=== PATIENT | female | born 1970 | race Caucasian/White ===

== ENCOUNTER 2016-01-20 16:00 | Outpatient (RCR) | payer OTHER ==
--- OUTSIDE RECORDS SUMMARY | 2016-01-17 11:22 | XMS REPORT | Continuity of Care Document ---
Author Author [facility] Organization [facility] Address Unknown Phone Unavailable Care Team Providers Care Printing Estimator Name Role Phone MAXINE VELARDE MD PCP Insurance Providers Payer Name Policy Number Subscriber Name Relationship [id number] Madi Bettencourt D 01 Advance Directives Directive Response Recorded Date/Time Advance Directives No 01/04/16 11:10pm Health Care Power of Lathe Tender No 01/04/16 11:10pm Organ Donor Yes 01/04/16 11:10pm Resuscitation Status Full Code 01/04/16 11:10pm Chief Complaint and Reason for Visit Chief Complaint Abdominal/GI Problems Reason for Visit [id number] Abdominal pain Nausea Problems Active Problems Medical Problem Onset Date Status Abdominal pain Unknown Acute Left ureteral calculus Unknown Acute Left ureteral stone Unknown Acute Nausea Unknown Acute Pulmonary nodule Unknown Acute Urinary tract infection Unknown Acute Medications Current Home Medications Medication Dose Units Route Directions Days/Qty Instructions Start Date Sulfamethoxazole/Trimethoprim 1 Each 1 Each Oral Twice A Day Venlafaxine Hcl 150 Mg 150 Mg Oral Daily 01/03/16 Phenazopyridine Hcl 100 Mg 100 Mg Oral 01/03/16 Ciprofloxacin Hcl 500 Mg 500 Mg Oral Twice A Day 5 01/03/16 Tramadol Hcl 50 Mg 1-2 Mg Oral Every 4HRS as needed for Pain 14 Ondansetron 4 Mg 4 Mg Oral Every 4HRS as needed for Nausea/Vomiting 10 01/05/16 Hydrocodone/Acetaminophen 1 Each 1 Each Oral Every 4HRS as needed for Pain 20 01/05/16 Social History Social History Problem Response Recorded Date/Time Alcohol Use Rarely Uses 01/04/2016 11:10pm Recreational Drug Use No 01/04/2016 11:10pm Recent Foreign Travel No 01/04/2016 11:10pm Recent Infectious Disease Exposure No 01/04/2016 11:10pm Hospitalization with Isolation Denies 01/04/2016 11:10pm Sexually Transmitted Disease No 01/04/2016 11:10pm Smoking Status Never a Smoker 01/04/2016 11:10pm Recent Hopitalizations No 01/04/2016 11:10pm Sexually Transmitted Disease No 01/04/2016 11:10pm Hospitalization with Isolation Denies 01/04/2016 11:10pm Hx Sexually Transmitted Disorders No 01/01/2009 7:20am Query Response Start Date Stop Date Smoking Status Never a Smoker Hospital Discharge Instructions No hospital discharge instructions. Plan of Care Discharge Date 01/05/16 12:15am Disposition 01 HOME, SELF-CARE Condition at Discharge Improved Instructions/Education Provided Nephrolithiasis (ED) Acute Abdominal Pain (ED) Prescriptions See Medication Section Referrals MAXINE VELARDE MD - Primary Care Physician Additional Instructions/Education Drink plenty of clear liquids. Continue taking your antibiotic as prescribed. Use your pain medication and nausea medication as prescribed. Follow-up with your primary care provider for a urology referral. Strain your urine and capture any kidney stones produced to bring to your provider. A small lung nodule was incidentally found in the right lung base. You need to follow-up with your primary care provider to discuss monitoring this nodule. All discharge instructions reviewed with patient and/or family. Voiced understanding. Functional Status No functional status results. Allergies, Adverse Reactions, Alerts Allergen Type Severity Reaction Status Last Updated NKANo Known Allergies Allergy Unknown Active 01/03/16 Immunizations No immunization records. Vital Signs Acute Vital Signs Vital Response Date/Time Temperature (Fahrenheit) 98.0 degrees F (97.6 - 99.5) 01/05/2016 12:15am Temperature (Calculated Celsius) 36.62097 degrees C (36.4 - 37.5) 01/05/2016 12:15am Temperature Source Tympanic 01/05/2016 12:15am Pulse Rate (adult) 80 bpm (60 - 90) 01/05/2016 12:15am Respiratory Rate 17 bpm (12 - 24) 01/05/2016 12:15am O2 Sat by Pulse Oximetry 96 % (88 - 100) 01/05/2016 12:15am Blood Pressure 130/65 mm Hg 01/05/2016 12:15am Blood Pressure Mean 88 mm Hg 01/04/2016 11:10pm Pain Numeric Pain Scale 2 01/05/2016 12:15am Height (Feet) 5 feet 01/04/2016 11:10pm Height (Inches) 4 inches 01/04/2016 11:10pm Height (Calculated Centimeters) 162.211033 cm 01/04/2016 11:10pm Weight (Pounds) 180 pounds 01/04/2016 11:10pm Weight (Calculated Grams) 86434.627 gm 01/04/2016 11:10pm Weight (Calculated Kilograms) 81.893598 kilograms 01/04/2016 11:10pm Capillary Refill Capillary Refill Less Than 3 Seconds 01/04/2016 11:10pm Height 5 ft 4 in Weight 180 lb Body Mass Index 30.9 kg/m^2 Results Laboratory Results Test Name Result Units Flags Reference Collection Date/Time Result Date/ Time Comments White Blood Count 9.5 10^3/uL 4.3-11.0 01/03/2016 10:31pm 01/03/2016 10 :40pm Red Blood Count 4.41 10^6/uL 4.35-5.85 01/03/2016 10:31pm 01/03/2016 10 :40pm Hemoglobin 13.7 G/DL 11.5-16.0 01/03/2016 10:31pm 01/03/2016 10:40pm Hematocrit 39 % 35-52 01/03/2016 10:31pm 01/03/2016 10:40pm Mean Corpuscular Volume 88 FL 80-99 01/03/2016 10:31pm 01/03/2016 10: 40pm Mean Corpuscular Hemoglobin 31 PG 25-34 01/03/2016 10:31pm 01/03/2016 10:40pm Mean Corpuscular Hemoglobin Concent 35 G/DL 32-36 01/03/2016 10:31pm 10:40pm Red Cell Distribution Width 12.2 % 10.0-14.5 01/03/2016 10:31pm 2015 10:40pm Platelet Count 401 10^3/uL H 130-400 01/03/2016 10:31p 01/03/2016 10: 40pm Mean Platelet Volume 8.6 FL 7.4-10.4 01/03/2016 10:31pm 01/03/2016 10: 40pm Neutrophils (%) (Auto) 59 % 42-75 01/03/2016 10:31pm 01/03/2016 10: 40pm Lymphocytes (%) (Auto) 28 % 12-44 01/03/2016 10:31pm 01/03/2016 10: 40pm Monocytes (%) (Auto) 8 % 0-12 01/03/2016 10:31p 01/03/2016 10:40pm Eosinophils (%) (Auto) 5 % 0-10 01/03/2016 10:31p 01/03/2016 10:40pm Basophils (%) (Auto) 1 % 0-10 01/03/2016 10:31p 01/03/2016 10:40pm Neutrophils # (Auto) 5.6 X 10^3 1.8-7.8 01/03/2016 10:31pm 01/03/2016 10:40pm Lymphocytes # (Auto) 2.6 X 10^3 1.0-4.0 01/03/2016 10:31p 01/03/2016 10:40pm Monocytes # (Auto) 0.7 X 10^3 0.0-1.0 01/03/2016 10:31p 01/03/2016 10: 40pm Eosinophils # (Auto) 0.4 10^3/uL H 0.0-0.3 01/03/2016 10:31pm 01/03/2016 10:40pm Basophils # (Auto) 0.1 10^3/uL 0.0-0.1 01/03/2016 10:31pm 01/03/2016 10 :40pm Urine Color YELLOW 01/03/2016 10:26pm 01/03/2016 10:52pm SPECIMEN ONLY 2 MLS. Urine Clarity CLEAR 01/03/2016 10:26pm 01/03/2016 10:52pm Urine pH 6 5-9 01/03/2016 10:26pm 01/03/2016 10:52pm Urine Specific [place] 1.025 * 1.016-1.022 01/03/2016 10:26pm 2015 10:52pm Urine Protein 2+ * NEGATIVE 01/03/2016 10:26pm 01/03/2016 10:52pm Urine Glucose (UA) NEGATIVE NEGATIVE 01/03/2016 10:26pm 01/03/2016 10 :52pm Urine RBC (Auto) 5+ * NEGATIVE 01/03/2016 10:26pm 01/03/2016 10:52pm Urine Ketones 1+ * NEGATIVE 01/03/2016 10:26pm 01/03/2016 10:52pm Urine Nitrite POSITIVE * NEGATIVE 01/03/2016 10:26pm 01/03/2016 10: 52pm Urine Bilirubin 1+ * NEGATIVE 01/03/2016 10:26pm 01/03/2016 10:52pm ICTOTEST NEGATIVE Urine Urobilinogen 1 MG/DL NORMAL 01/03/2016 10:26pm 01/03/2016 10: 52pm Urine Leukocyte Esterase 3+ * NEGATIVE 01/03/2016 10:26pm 01/03/2016 10 :52pm Urine RBC 50-100 /HPF * 01/03/2016 10:26pm 01/03/2016 10:52pm Urine WBC 10-25 /HPF * 01/03/2016 10:26pm 01/03/2016 10:52pm Urine Bacteria LARGE /HPF * 01/03/2016 10:26pm 01/03/2016 10:52pm Urine Squamous Epithelial Cells 10-25 /HPF * 01/03/2016 10:26pm 2015 10:52pm Urine Crystals NONE /LPF 01/03/2016 10:26pm 01/03/2016 10:52pm Urine Casts NONE /LPF 01/03/2016 10:26pm 01/03/2016 10:52pm Urine Mucus NEGATIVE /LPF 01/03/2016 10:26pm 01/03/2016 10:52pm Urine Culture Indicated YES 01/03/2016 10:26pm 01/03/2016 10:52pm Sodium Level 138 MMOL/L 135-145 01/03/2016 10:31pm 01/03/2016 11:04pm Potassium Level 3.6 MMOL/L 3.6-5.0 01/03/2016 10:31pm 01/03/2016 11: 04pm Chloride Level 105 MMOL/L 98-107 01/03/2016 10:31pm 01/03/2016 11:04pm Carbon Dioxide Level 22 MMOL/L 21-32 01/03/2016 10:31pm 01/03/2016 11: 04pm Anion Gap 11 MMOL/L 5-14 01/03/2016 10:31pm 01/03/2016 11:04pm Blood Urea Nitrogen 11 MG/DL 7-18 01/03/2016 10:31pm 01/03/2016 11: 04pm Creatinine 0.91 MG/DL 0.60-1.30 01/03/2016 10:31pm 01/03/2016 11:04pm BUN/Creatinine Ratio 12 01/03/2016 10:31pm 01/03/2016 11:04pm Estimat Glomerular Filtration Rate > 60 01/03/2016 10:31pm 2015 11:04pm GFR INTERPRETIVE DATA UNITS FOR ESTIMATED GFR (eGFR): mL/min/1.73 M2 REFERENCE RANGE FOR ESTIMATED GFR (eGFR) eGFR NORMAL eGFR >60 MODERATELY DECREASED eGFR 30-59 SEVERLY DECREASED eGFR 15-29 KIDNEY FAILURE <15 (OR DIALYSIS) Glucose Level 111 MG/DL H 70-105 01/03/2016 10:31pm 01/03/2016 11:04pm Calcium Level 9.1 MG/DL 8.5-10.1 01/03/2016 10:31pm 01/03/2016 11:04pm Total Bilirubin 0.5 MG/DL 0.1-1.0 01/03/2016 10:31pm 01/03/2016 11: 04pm Alkaline Phosphatase 57 U/L 40-136 01/03/2016 10:31pm 01/03/2016 11: 04pm Aspartate Amino Transf (AST/SGOT) 14 U/L 5-34 01/03/2016 10:31pm 2015 11:04pm Alanine Aminotransferase (ALT/SGPT) 9 U/L 0-55 01/03/2016 10:31pm 01/02 11:04pm Total Protein 7.2 G/DL 6.4-8.2 01/03/2016 10:31pm 01/03/2016 11:04pm Albumin 4.4 G/DL 3.2-4.5 01/03/2016 10:31pm 01/03/2016 11:04pm Microbiology Results Procedure Source Result Collection Date/Time Result Date/Time Urine Culture Urine, Clean Catch NO GROWTH 01/03/2016 10:26pm 01/04/2016 5: 38pm Procedures No known history of procedures. Encounters Encounter Location Arrival/Admit Date Discharge/Depart Date Attending Provider Departed Emergency Room [facility] 01/04/16 11:07pm 12:15am PEGGY CASTRO MD Departed Emergency Room [facility] 01/03/16 10:03pm 11:30pm DEEPIKA TAYLOR MD Recent Diagnosis
[~2016-01-20 16:00] MED LIST: CIPR-225 PO; HYDR-3812 PO; NITR-65 PO; ONDA4TAB8 PO; PHEN-639 PO; SULF1TAB35 PO; TAMS0.4C98 PO; TRAM50TA2 PO; VENL150C PO
[2016-01-24 14:45] LABS: STONE RISK AMMONIUM 37 mEq/24hr (14-62); STONE RISK BRUSHITE 2.86 (< 2.00); STONE RISK CALCIUM 165 mg/day (< 250); STONE RISK CITRATE 1305 mg/day (> 320); STONE RISK CREATININE 1676 mg/day (600-1800); STONE RISK MAGNESIUM 49 mg/day (> 60); STONE RISK OXALATE 21 mg/day (< 45); STONE RISK PATIENT CONDITION Low urine volume; STONE RISK PH 6.3 (5.5-7.0); STONE RISK PHOSPHOROUS 922 mg/day (< 1100); STONE RISK POTASSIUM 36 mEq/24hr (19-135); STONE RISK SODIUM 90 mEq/24hr (< 200); STONE RISK SODIUM URATES 6.01 (< 2.00); STONE RISK STRUVITE 2.72 (< 75.00); STONE RISK SULFITE 4 mmol/day (< 30); STONE RISK TOTAL VOLUME 0.79 L/day (> 2.00); STONE RISK URIC ACID 572 mg/day (< 700); STONE RISK URIC ACID SAT 1.62 (< 2.00)
== END 2016-04-16 | disposition home or self-care (01) ==
LOC: LAB 16:00
PROVIDERS: ATTEND Urology
DX: N20.9 Urinary calculus, unspecified (principal)
CPT/HCPCS: 36415; 82140; 82340; 82507; 82570; 83735; 83945; 83986; 84105; 84133; 84300; 84392; 84560

== ENCOUNTER → 2017-03-09 | Outpatient (CLI) | payer OTHER ==
--- NOTE | 2017-03-09 18:22 | Diagnostic Imaging Report ---
Bilateral screening mammogram 2D views with tomosynthesis The current study was also evaluated with a Computer Aided Detection (CAD) system. Indication: Screening. No current complaints stated on the questionnaire. COMPARISON: 05/29/15. FINDINGS: The breasts are composed of scattered fibroglandular densities. There are occasional benign appearing calcifications. Allowing for technique and positional differences, no suspicious change is seen. IMPRESSION: No significant change. ACR BI-RADS Category 2: Benign findings. Result letter will be mailed to the patient. Note: At least 10% of breast cancer is not imaged by mammography. Dictated by: Dictated on workstation # [id number]
== END ==
LOC: RAD 08:43
PROVIDERS: ATTEND Internal Medicine
DX: Z12.31 Encounter for screening mammogram for malignant neoplasm of breast (principal)
CPT/HCPCS: 77067

== ENCOUNTER → 2017-09-14 | Outpatient (CLI) | payer OTHER ==
[~2017-09-14] MED LIST changes: +ACHD5005 PO; -HYDR-3812 PO
--- NOTE | 2017-09-14 17:35 | Diagnostic Imaging Report ---
INDICATION: History of previous left renal stone. KUB obtained at 4:44 p.m. FINDINGS: The abdominal bowel gas pattern is unremarkable. There are no radiopaque calculi visualized over the pelvis or over the renal shadows. IMPRESSION: Negative abdominal film. Dictated by: Dictated on workstation # [id number]
== END ==
LOC: RAD 16:14
PROVIDERS: ATTEND Urology
DX: Z87.442 Personal history of urinary calculi (principal)
CPT/HCPCS: 74018

== ENCOUNTER → 2018-02-02 | Outpatient (CLI) | payer OTHER ==
--- NOTE | 2018-02-02 18:28 | Diagnostic Imaging Report ---
INDICATION: Back pain. EXAMINATION: Thoracic spine. FINDINGS: AP and lateral views of the thoracic spine show normal vertebral body height and alignment. Disc spaces are normal. IMPRESSION: Negative thoracic spine. Dictated by: Dictated on workstation # [id number]
== END ==
LOC: RAD 15:15
PROVIDERS: ATTEND Chiropractor
DX: M54.6 Pain in thoracic spine (principal)
CPT/HCPCS: 72072

== ENCOUNTER → 2018-05-02 | Outpatient (CLI) | payer OTHER ==
--- NOTE | 2018-05-02 09:24 | Diagnostic Imaging Report ---
INDICATION: Routine screening. COMPARISON: 03/09/2017 and 05/29/2015. TECHNIQUE: 2D and 3D bilateral screening mammography was performed with CAD. FINDINGS: Scattered fibroglandular densities are identified bilaterally. The parenchymal pattern is stable. No mass or malignant appearing microcalcifications are seen. The axillae are unremarkable. IMPRESSION: No mammographic features suspicious for malignancy are identified. ACR BI-RADS Category 1: Negative. Result letter will be mailed to the patient. Note: At least 10% of breast cancer is not imaged by mammography. Dictated by: Dictated on workstation # [id number]
== END ==
LOC: RAD 08:00
PROVIDERS: ATTEND Internal Medicine
DX: Z12.31 Encounter for screening mammogram for malignant neoplasm of breast (principal)
CPT/HCPCS: 77067

== ENCOUNTER 2018-07-26 05:47 | Outpatient (CLI) | payer OTHER ==
[~2018-07-26] VITALS: Ht 162.6 cm; Wt 86.2 kg
[2018-07-26] MEDS ORDERED: CETI10TA4 PO (14:54)
[2018-07-26] MEDS ORDERED: [UNRECOGNIZED DRUG - CODE] PO (14:54)
== END 2018-07-26 14:55 | disposition home or self-care (01) ==
LOC: PREOP 05:47
PROVIDERS: ATTEND Internal Medicine
DX: Z01.818 Encounter for other preprocedural examination (principal)

== ENCOUNTER 2018-07-29 08:17 | Day surgery (SDC) | payer OTHER ==
--- NOTE | 2018-07-26 17:21 | HISTORY AND PHYSICAL ---
DATE OF SERVICE: 07/29/2018 EGD HISTORY AND PHYSICAL HISTORY OF PRESENT ILLNESS: The patient is a 48-year-old white female seen in the office on 07/25/2018 reporting at least a 1-month history of increased epigastric burning discomfort radiating up into her chest. With this, she has noted some dysphagia to solids. Ultimately, food will go down. She has not had to regurgitate anything, but it is also associated with pain. Over the past 4 months, she is put on 7.6 pounds and compared to 5 years ago, she is up 33 pounds. She has noticed no bright red blood per rectum or melena. Reports energy level has been stable and she denies abdominal pain. She had a past history of pancreatitis during her 10 years ago and reports that this discomfort is different than her pancreatitis related symptoms, which was predominantly upper abdominal pain. She has had no associated nausea. PHYSICAL EXAMINATION: GENERAL: Reveals a white female, who did not appear to be in acute distress. VITAL SIGNS: Blood pressure 150/90. HEENT: Unremarkable. Sclerae nonicteric. CHEST: Clear to auscultation. CARDIOVASCULAR: Reveals regular rate and rhythm without murmur, S3 or S4. ABDOMEN: Soft, supple without mass, organomegaly or pain. There is some mild discomfort in the epigastric area to palpation and a sensation of fullness per the patient's report. Bowel sounds are positive. No bruits are noted. EXTREMITIES: Reveal no cyanosis, clubbing or edema. ASSESSMENT AND PLAN: Reflux sounding symptoms with dysphagia. The patient will be set up for EGD evaluation for diagnostic purposes on the 07/29/2018. She denies nighttime symptoms, but has been taking 150 mg of ranitidine at bedtime and some p.r.n. antacids during the day. It is advised that she increase her ranitidine to b.i.d. for now with further recommendations pending EGD evaluation. She is to avoid aspirin and nonsteroidal medications in the interim, which she does not normally take. We will discuss weight association with reflux symptoms after the procedure. Job ID: [id number] DocumentID: [id number] Dictated Date: 07/25/2018 16:27:21 Station Detective Date: 07/25/2018 17:31:22 Dictated By: MAXINE VELARDE MD
[~2018-07-29] VITALS: Ht 162.6 cm; Wt 86.2 kg
[~2018-07-29 08:17] MED LIST changes: +CETI10TA4 PO; +[UNRECOGNIZED DRUG - CODE] PO
--- OUTSIDE RECORDS SUMMARY | 2018-07-29 08:21 | XMS REPORT | Continuity of Care Document ---
Author Organization Unknown Address Unknown Allergies Active Description Code Type Severity Reaction Onset Reported/Identified Relationship to Patient Clinical Status Yes NKANo Known Allergies NKA Miscellaneous Allergy Unknown N/A 01/03/2016 Medications There is no data. Problems Date Dx Coded Attending Type Code Diagnosis Diagnosed By 05/08/2013 GARY SAMANIEGO DO V70.3 OTHER GENERAL MEDICAL EXAMINATION FOR ADMINISTRATIVE PURPOSES 05/10/2014 Ot 172.9 05/10/2014 Ot V72.83 05/10/2014 Ot V74.8 05/10/2014 Ot 611.72 05/10/2014 Ot V76.12 05/10/2014 Ot 793.80 05/10/2014 Ot V76.12 05/10/2014 Ot 172.9 05/10/2014 Ot V72.83 05/10/2014 Ot V74.8 05/10/2014 Ot 611.72 05/10/2014 Ot V76.12 05/10/2014 Ot 793.80 05/10/2014 Ot V76.12 05/29/2015 Ot 611.72 05/29/2015 Ot V76.12 05/29/2015 Ot 793.80 05/29/2015 Ot V76.12 05/30/2015 PRACHI CISNEROS, MAXINE Barahona Ot Z12.31 01/03/2016 Ot 611.72 LUMP OR MASS IN BREAST 01/03/2016 Ot V76.12 OTH SCREEN MAMMO-MALIGN NEOPLASM OF JEZ 01/03/2016 Ot 793.80 UNSPEC ABNORMAL MAMMOGRAM 01/03/2016 Ot V76.12 OTH SCREEN MAMMO-MALIGN NEOPLASM OF JEZ 01/03/2016 MAXINE VELARDE MD Ot Z12.31 ENCNTR SCREEN MAMMOGRAM FOR MALIGNANT NE 01/03/2016 BRANDON CISNEROS, DEEPIKA Davis Ot N20.2 CALCULUS OF KIDNEY WITH CALCULUS OF URET 01/03/2016 BRANDON CISNEROS, DEEPIKA Davis Ot N83.201 UNSPECIFIED OVARIAN CYST, RIGHT SIDE 01/03/2016 BRANDON MD, DEEPIKA A Ot R10.32 LEFT LOWER QUADRANT PAIN 01/03/2016 BRANDON CISNEROS, DEEPIKA A Ot R11.0 NAUSEA 01/03/2016 BRANDON CISNEROS, DEEPIKA A Ot R91.1 SOLITARY PULMONARY NODULE 01/05/2016 GLORIA ICSNEROS, PEGGY T Ot N20.2 CALCULUS OF KIDNEY WITH CALCULUS OF URET 01/05/2016 GLORIA CISNEROS, PEGGY T Ot N83.201 UNSPECIFIED OVARIAN CYST, RIGHT SIDE 01/05/2016 PEGGY CASTRO MD T Ot R10.32 LEFT LOWER QUADRANT PAIN 01/05/2016 GLORIA CISNEROS, PEGGY T Ot R91.1 SOLITARY PULMONARY NODULE 01/05/2016 GLORIA CISNEROS, PEGGY T Ot Z85.820 PERSONAL HISTORY OF MALIGNANT MELANOMA O 01/06/2016 DEEPIKA TAYLOR MD A Ot N20.2 CALCULUS OF KIDNEY WITH CALCULUS OF URET 01/06/2016 DEEPIKA TAYLOR MD A Ot N83.201 UNSPECIFIED OVARIAN CYST, RIGHT SIDE 01/06/2016 DEEPIKA TAYLOR MD A Ot R10.32 LEFT LOWER QUADRANT PAIN 01/06/2016 DEEPIKA TAYLOR MD A Ot R11.0 NAUSEA 01/06/2016 DEEPIKA TAYLOR MD A Ot R91.1 SOLITARY PULMONARY NODULE 01/07/2016 GLORIA CISNEROS, PEGGY T Ot N20.2 CALCULUS OF KIDNEY WITH CALCULUS OF URET 01/07/2016 PEGGY CASTRO MD T Ot N83.201 UNSPECIFIED OVARIAN CYST, RIGHT SIDE 01/07/2016 PEGGY CASTRO MD T Ot R10.32 LEFT LOWER QUADRANT PAIN 01/07/2016 PEGGY CASTRO MD T Ot R91.1 SOLITARY PULMONARY NODULE 01/07/2016 GLORIA CISNEROS, PEGGY T Ot Z85.820 PERSONAL HISTORY OF MALIGNANT MELANOMA O 01/10/2016 DEEPIKA TAYLOR MD A Ot N20.2 CALCULUS OF KIDNEY WITH CALCULUS OF URET 01/10/2016 DEEPIKA TAYLOR MD A Ot N83.201 UNSPECIFIED OVARIAN CYST, RIGHT SIDE 01/10/2016 DEEPIKA TAYLOR MD A Ot R10.32 LEFT LOWER QUADRANT PAIN 01/10/2016 DEEPIKA TAYLOR MD A Ot R11.0 NAUSEA 01/10/2016 BRANDON CISNEROS, DEEPIKA Davis Ot R91.1 SOLITARY PULMONARY NODULE 01/10/2016 Ot 611.72 LUMP OR MASS IN BREAST 01/10/2016 Ot V76.12 OTH SCREEN MAMMO-MALIGN NEOPLASM OF JEZ 01/10/2016 Ot 793.80 UNSPEC ABNORMAL MAMMOGRAM 01/10/2016 Ot V76.12 OTH SCREEN MAMMO-MALIGN NEOPLASM OF JEZ 01/10/2016 PRACHI CISNEROS, MAXINE Barahona Ot Z12.31 ENCNTR SCREEN MAMMOGRAM FOR MALIGNANT NE 01/10/2016 YONG BACH MD Ot N20.1 CALCULUS OF URETER 01/10/2016 MIKALA CISNEROS, YONG Davis Ot N20.1 CALCULUS OF URETER 01/13/2016 MIKALA CISNEROS, YONG Davis Ot N20.1 CALCULUS OF URETER 01/17/2016 MIKALA CISNEROS, YONG Davis Ot N20.1 CALCULUS OF URETER 01/28/2016 MIKALA CISNEROS, YONG Davis Ot N20.1 CALCULUS OF URETER 03/05/2016 MIAKLA CISNEROS, YONG Davis Ot N20.9 URINARY CALCULUS, UNSPECIFIED 04/16/2016 MIKALA CISNEROS, YONG Davis Ot N20.9 URINARY CALCULUS, UNSPECIFIED 03/09/2017 Ot V76.12 OTH SCREEN MAMMO-MALIGN NEOPLASM OF JEZ 03/09/2017 MAXINE VELARDE MD Ot Z12.31 ENCNTR SCREEN MAMMOGRAM FOR MALIGNANT NE 03/09/2017 YONG BACH MD Ot N20.1 CALCULUS OF URETER 03/09/2017 MIKALA CISNEROS, YONG Davis Ot N20.9 URINARY CALCULUS, UNSPECIFIED 03/10/2017 MAXINE VELARDE MD Ot Z12.31 ENCNTR SCREEN MAMMOGRAM FOR MALIGNANT NE 03/23/2017 MAXINE VELARDE MD Ot Z12.31 ENCNTR SCREEN MAMMOGRAM FOR MALIGNANT NE 09/16/2017 YONG BACH MD Ot Z87.442 PERSONAL HISTORY OF URINARY CALCULI 09/16/2017 YONG BACH MD Ot Z87.442 PERSONAL HISTORY OF URINARY CALCULI 11/17/2017 MAXINE VELARDE MD Ot Z12.31 ENCNTR SCREEN MAMMOGRAM FOR MALIGNANT NE 11/17/2017 YONG BACH MD Ot N20.1 CALCULUS OF URETER 11/17/2017 YONG BACH MD Ot N20.9 URINARY CALCULUS, UNSPECIFIED 05/02/2018 MAXINE VELARDE MD Ot Z12.31 ENCNTR SCREEN MAMMOGRAM FOR MALIGNANT NE 05/02/2018 YONG BACH MD Ot Z87.442 PERSONAL HISTORY OF URINARY CALCULI 05/02/2018 JOHN LEE, MARILEE Ot M54.6 PAIN IN THORACIC SPINE 05/02/2018 MAXINE VELARDE MD Ot Z12.31 ENCNTR SCREEN MAMMOGRAM FOR MALIGNANT NE 07/26/2018 MAXINE VELARDE MD Ot Z01.818 ENCOUNTER FOR OTHER PREPROCEDURAL EXAMIN Procedures There is no data. Results Test Result Range Complete urinalysis with reflex to culture - 01/03/16 22:26 Urine color determination YELLOW NRG Urine clarity determination CLEAR NRG Urine pH measurement by test strip 6 5-9 Specific gravity of urine by test strip 1.025 1.016- 1.022 Urine protein assay by test strip, semi-quantitative 2+ NEGATIVE Urine glucose detection by automated test strip NEGATIVE NEGATIVE Erythrocytes detection in urine sediment by light microscopy 5+ NEGATIVE Urine ketones detection by automated test strip 1+ NEGATIVE Urine nitrite detection by test strip POSITIVE NEGATIVE Urine total bilirubin detection by test strip 1+ NEGATIVE Urine urobilinogen measurement by automated test strip (mass/volume) 1 mg/dL NORMAL Urine leukocyte esterase detection by dipstick 3+ NEGATIVE Automated urine sediment erythrocyte count by microscopy (number/high power field) [HPF] NRG Automated urine sediment leukocyte count by microscopy (number/high power field ) [HPF] NRG Bacteria detection in urine sediment by light microscopy LARGE NRG Squamous epithelial cells detection in urine sediment by light microscopy 10-25 NRG Crystals detection in urine sediment by light microscopy NONE NRG Casts detection in urine sediment by light microscopy NONE NRG Mucus detection in urine sediment by light microscopy NEGATIVE NRG Complete urinalysis with reflex to culture YES NRG Bacterial urine culture - 01/03/16 22:26 URINE CULTURE RESULTS <10,000/ML NRG Complete blood count (CBC) with automated white blood cell (WBC) differential - 01/03/16 22:31 Blood leukocytes automated count (number/volume) 9.5 10*3/uL 4.3-11.0 Blood erythrocytes automated count (number/volume) 4.41 10*6/uL 4.35-5.85 Venous blood hemoglobin measurement (mass/volume) 13.7 g/dL 11.5-16.0 Blood hematocrit (volume fraction) 39 % 35-52 Automated erythrocyte mean corpuscular volume 88 [foz_us] 80-99 Automated erythrocyte mean corpuscular hemoglobin (mass per erythrocyte) 31 pg 25-34 Automated erythrocyte mean corpuscular hemoglobin concentration measurement ( mass/volume) 35 g/dL 32-36 Automated erythrocyte distribution width ratio 12.2 % 10.0-14.5 Automated blood platelet count (count/volume) 401 10*3/uL 130-400 Automated blood platelet mean volume measurement 8.6 [foz_us] 7.4-10.4 Automated blood neutrophils/100 leukocytes 59 % 42-75 Automated blood lymphocytes/100 leukocytes 28 % 12-44 Blood monocytes/100 leukocytes 8 % 0-12 Automated blood eosinophils/100 leukocytes 5 % 0-10 Automated blood basophils/100 leukocytes 1 % 0-10 Blood neutrophils automated count (number/volume) 5.6 10*3 1.8-7.8 Blood lymphocytes automated count (number/volume) 2.6 10*3 1.0-4.0 Blood monocytes automated count (number/volume) 0.7 10*3 0.0-1.0 Automated eosinophil count 0.4 10*3/uL 0.0-0.3 Automated blood basophil count (count/volume) 0.1 10*3/uL 0.0-0.1 Comprehensive metabolic panel - 01/03/16 22:31 Serum or plasma sodium measurement (moles/volume) 138 mmol/L 135-145 Serum or plasma potassium measurement (moles/volume) 3.6 mmol/L 3.6-5.0 Serum or plasma chloride measurement (moles/volume) 105 mmol/L 98-107 Carbon dioxide 22 mmol/L 21-32 Serum or plasma anion gap determination (moles/volume) 11 mmol/L 5-14 Serum or plasma urea nitrogen measurement (mass/volume) 11 mg/dL 7-18 Serum or plasma creatinine measurement (mass/volume) 0.91 mg/dL 0.60-1.30 Serum or plasma urea nitrogen/creatinine mass ratio 12 NRG Serum or plasma creatinine measurement with calculation of estimated glomerular filtration rate > NRG Serum or plasma glucose measurement (mass/volume) 111 mg/dL 70-105 Serum or plasma calcium measurement (mass/volume) 9.1 mg/dL 8.5-10.1 Serum or plasma total bilirubin measurement (mass/volume) 0.5 mg/dL 0.1-1.0 Serum or plasma alkaline phosphatase measurement (enzymatic activity/volume) 57 U/L 40-136 Serum or plasma aspartate aminotransferase measurement (enzymatic activity/ volume) 14 U/L 5-34 Serum or plasma alanine aminotransferase measurement (enzymatic activity/volume ) 9 U/L 0-55 Serum or plasma protein measurement (mass/volume) 7.2 g/dL 6.4-8.2 Serum or plasma albumin measurement (mass/volume) 4.4 g/dL 3.2-4.5 Urine beta human chorionic gonadotropin (hCG) measurement - 01/10/16 06:40 Urine beta human chorionic gonadotropin (hCG) measurement NEGATIVE NEGATIVE Methicillin resistant Staphylococcus aureus (MRSA) screening culture - 06:40 Methicillin resistant Staphylococcus aureus (MRSA) screening culture NEG NRG CD3+CD4+ (T4 helper) cells/100 cells in blood - 01/20/16 09:00 Timed urine calcium measurement (mass/volume) 165 % < 250 Urine oxalate detection 21 < 45 Urine uric acid measurement (mass/volume) 572 % < 700 Urine citrate measurement (mass/volume) 1305 % > 320 Urine pH measurement 6.3 5.5-7.0 24 hour urine specimen volume measurement 0.79 % > 2.00 Sodium urate/total calculus mass ratio by infrared spectroscopy 90 % < 200 Sulfites [presence] in urine by test strip 4 < 30 Urine phosphate measurement (mass/volume) 922 % < 1100 Urine magnesium measurement (mass/volume) 49 % > 60 Urine calcium oxalate measurement 1.60 < 2.00 Urine calcium phosphate crystals detection by computer assisted method 2.86 < 2.00 24 hour urine sodium urate (saturation fraction) 6.01 < 2.00 Triple phosphate crystals detection in urine sediment by light microscopy 2.72 < 75.00 24 hour urine uric acid (saturation fraction) 1.62 < 2.00 Urine ammonium measurement 37 % 14-62 Urine potassium measurement 36 % 19-135 24 hour urine creatinine measurement (mass/time) 1676 % 600-1800 Clinical rn camp review of results See Below NRG Encounters ACCT No. Visit Date/Time Discharge Status Pt. Type Provider Facility Loc./Unit Complaint [id number] 05/08/2013 12:14:00 05/08/2013 23:59:59 CLS Outpatient GARY SAMANIEGO DO [id number] 07/26/2018 05:47:00 07/26/2018 14:55:00 DIS Outpatient MAXINE VELARDE MD [facility] PREOP EGD [id number] 05/02/2018 08:00:00 05/02/2018 23:59:59 CLS Outpatient MAXINE VELARDE MD [facility] RAD SCREENING [id number] 02/02/2018 15:15:00 02/02/2018 23:59:59 CLS Outpatient MARILEE LOPEZ DC [facility] RAD PAIN IN THORACIC SPINE [id number] 09/14/2017 16:14:00 09/14/2017 23:59:59 CLS Outpatient YONG BACH MD [facility] RAD H/O STONES [id number] 03/09/2017 08:43:00 03/09/2017 23:59:59 CLS Outpatient MAXINE VELARDE MD [facility] RAD SCREENING [id number] 04/17/2016 00:09:00 04/17/2016 23:59:59 CLS Preadmit YONG BACH MD [facility] LAB STONES [id number] 01/20/2016 16:00:00 04/16/2016 00:01:00 DIS Outpatient YONG BACH MD [facility] LAB STONES [id number] 01/10/2016 06:15:00 01/10/2016 09:40:00 DIS Outpatient YONG BACH MD [facility] SDC LEFT STONE [id number] 01/09/2016 13:36:00 01/09/2016 23:59:59 CLS Outpatient YONG BACH MD [facility] RAD LT URETERAL STONE [id number] 01/04/2016 23:07:00 01/05/2016 00:15:00 DIS Emergency PEGGY CASTRO MD [facility] ER AB PAIN [id number] 01/03/2016 22:03:00 01/03/2016 23:30:00 DIS Emergency BRANDON CISNEROS, DEEPIKA Davis [facility] ER PAIN IN L SIDE/TINGLING HANDS [id number] 05/29/2015 14:45:00 05/29/2015 23:59:59 CLS Outpatient MAXINE VELARDE MD [facility] RAD SCREENING [id number] 10/27/2012 10:08:00 10/27/2012 23:59:59 CLS Outpatient [id number] 07/29/2018 09:45:00 PEN Preadmit MAXINE VELARDE MD [facility] ENDO DYSPHAGIA [id number] 05/10/2014 11:52:00 Document Registration [id number] 05/10/2014 11:52:00 Document Registration [id number] 03/04/2012 15:07:00 Document Registration [id number] 08/19/2010 14:20:00 Document Registration [id number] 08/07/2010 15:22:00 Document Registration [id number] 12/28/2008 08:58:00 Document Registration
[2018-07-29] MEDS ORDERED: D5 LR IV SOLUTION 1,000 ML IV STA (08:34)
[2018-07-29] MEDS ORDERED: D5 LR IV SOLUTION 1,000 ML IV ONE (08:35)
[2018-07-29] MEDS ORDERED: MIDAZOLAM 2 MG/2 ML (VERSED) VIAL IVP ONE (08:45)
[2018-07-29] MEDS ORDERED: HURRICAINE EXT TUBE (BENZOCAINE) XX PRN (08:45)
[2018-07-29] MEDS ORDERED: fentaNYL INJECTION 100 MCG/2 ML AMP IVP ONE (08:45)
[2018-07-29 09:13] VITALS: BP 122/85
[2018-07-29] MEDS ORDERED: fentaNYL INJECTION 100 MCG/2 ML AMP ONE (09:35)
[2018-07-29] MEDS ORDERED: LIDOCAINE JELLY 2% 6 ML SYRINGE ONE (09:35)
[2018-07-29] MEDS ORDERED: MIDAZOLAM 2 MG/2 ML (VERSED) VIAL ONE ×3 (09:35→09:36)
[2018-07-29] MEDS ORDERED: HURRICAINE EXT TUBE (BENZOCAINE) ONE (09:36)
[2018-07-29 10:35] VITALS: BP 136/78
--- NOTE | 2018-07-29 10:35 | Pre-Op Note & Conscious Sedat ---
Pre-Operative Progress Note H&P Reviewed The H&P was reviewed, patient examined and no changes noted. Date H&P Reviewed: July 29, 2018 Time H&P Reviewed: 09:15 Conscious Sedation Pre-Proced ASA Score 2 For ASA 3 and 4: Consider anesthesia and medical clearance. Also, for patients with a history of failed moderate sedation consider anesthesia. Airway Lungs Heart ASA score ASA 1: a normal healthy patient ASA 2: a patient with a mild systemic disease (mid diabetes, controlled hypertension, obesity ASA 3: a patient with a severe systemic disease that limits activity (angina, COPD, prior Myocardial infarction) ASA 4: a patient with an incapacitating disease that is a constant threat to life (CHF, renal failure) ASA 5: a moribund patient not expected to survive 24 hrs. (ruptured aneurysm) ASA 6: a declared brain- patient whose organs are being harvested. For emergent operations, add the letter E after the classification Mallampati Classification Grade 3 Sedation Plan Analgesia, Amnesia, Plan communicated to team members, Discussed options with patient/fam, Discussed risks with patient/fam The patient is an appropriate candidate to undergo the planned procedure, sedation, and anesthesia. The patient immediately re-assessed prior to indication. MAXINE VELARDE MD July 29, 2018 10:35
[2018-07-29] MEDS ORDERED: [UNRECOGNIZED DRUG - CODE] PO (10:38)
[2018-07-29 11:05] VITALS: BP 136/78
[2018-07-29 11:40] VITALS: BP 136/78
--- NOTE | 2018-07-29 16:35 | OPERATIVE REPORT ---
DATE OF SERVICE: 07/29/2018 ESOPHAGOGASTRODUODENOSCOPY SUMMARY PRIMARY CARE PHYSICIAN: Maxine Velarde MD. INDICATIONS: EGD is performed for evaluation of dysphagia. DESCRIPTION OF PROCEDURE: The patient was placed in left lateral decubitus position. The endoscope was inserted into the oral cavity and under direct visualization, the esophagus was intubated. The endoscope was passed down the esophagus through the stomach and second portion of the duodenum. Careful inspection was made as the endoscope was withdrawn. The patient tolerated the procedure well. FINDINGS: The posterior pharynx, arytenoid aperture, true and false vocal folds were unremarkable. Proximal and mid esophagus were unremarkable. There is some erythema noted at the Z-line without evidence for erosive esophagitis. No evidence for stricture formation or Lake's change was noted. No evidence for hiatal hernia was noted. The cardia of the stomach was unremarkable. Linear areas of erythema were noted in the antrum as well as the fundus. Several small antral erosions were noted. Biopsy was obtained and submitted for histopathology and Helicobacter evaluation. The pylorus and the pyloric channel were unremarkable. Mild duodenal erythema was noted at the duodenal bulb. The second and third portions of the duodenum were unremarkable. Normal villous appearing architecture was noted. ASSESSMENT: The Z-line revealed a small amount of erythema without evidence for erosive esophagitis. There is no evidence for hiatal hernia formation. Gastritis was present noted in the fundus and to a greater degree of the antrum with several antral erosions being present. Biopsies were obtained and submitted for histopathology and Helicobacter evaluation. Mild duodenitis was present without evidence for duodenal ulcers. The patient was advised to abstain from aspirin and nonsteroidal medications, continuing Tylenol as needed for pain and will increase Pepcid to 20 mg b.i.d. Further recommendations will be pending histopathology report and response to b.i.d. Pepcid. Job ID: [id number] DocumentID: [id number] Dictated Date: 07/29/2018 12:10:29 Process Engineering Manager Date: 07/29/2018 16:34:19 Dictated By: MAXINE VELARDE MD [facility]
== END 2018-07-29 11:40 | disposition home or self-care (01) ==
LOC: ENDO 08:17
PROVIDERS: ATTEND Internal Medicine
DX: K29.50 Unspecified chronic gastritis without bleeding (principal); K29.80 Duodenitis without bleeding
CPT/HCPCS: 84703

== ENCOUNTER → 2018-09-22 | Outpatient (CLI) | payer OTHER ==
--- NOTE | 2018-09-22 18:36 | Diagnostic Imaging Report ---
INDICATION: History of kidney stones. TIME OF EXAM: 03:08 p.m. COMPARISON: Comparison is made with prior radiograph from 09/14/2017. FINDINGS: Bowel gas pattern is unremarkable. No obstruction is seen. Bowel contents obscure renal shadows. No definite urinary tract calculi are seen. IMPRESSION: No significant abnormality is detected. Dictated by: Dictated on workstation # [id number]
== END ==
LOC: RAD 14:55
PROVIDERS: ATTEND Urology
DX: Z87.442 Personal history of urinary calculi (principal)
CPT/HCPCS: 74018

== ENCOUNTER 2019-06-10 20:01 | Emergency (ER) | payer OTHER ==
[~2019-06-10] VITALS: Ht 162 cm; Wt 74.8 kg
[~2019-06-10 20:01] MED LIST changes: +FAMO-108 PO; -TAMS0.4C98 PO; +TMSL.4C PO; -TRAM50TA2 PO; +TRM50T PO; -[UNRECOGNIZED DRUG - CODE] PO
--- OUTSIDE RECORDS SUMMARY | 2019-06-10 20:11 | XMS REPORT | Continuity of Care Document ---
Author Organization Unknown Address Unknown Phone Unavailable Allergies Active Description Code Type Severity Reaction [...] 05/29/2015 Ot 793.80 05/29/2015 Ot V76.12 05/30/2015 MAXINE VELARDE MD Ot Z12. 31 01/03/2016 Ot 611.72 LUM P OR MASS IN BREAST 01/03/2016 Ot V76.12 OTH SCREEN MAMMO- MALIGN NEOPLASM OF JEZ 01/03/2016 Ot 793.80 UNS PEC ABNORMAL MAMMOGRAM 01/03/2016 Ot V76.12 OTH SCREEN MAMMO- MALIGN NEOPLASM OF JEZ 01/03/2016 MAXINE VELARDE MD Ot Z12. 31 ENCNTR SCREEN MAMMOGRAM FOR MALIGNANT NE 01/03/2016 DEEPIKA TAYLOR MD Ot N20. 2 CALCULUS OF KIDNEY WITH CALCULUS OF URET 01/03/2016 DEEPIKA TAYLOR MD Ot N83.201 UNSPECIFIED OVARIAN CYST, RIGHT SIDE 01/03/2016 BRANDON MD, DEEPIKA A Ot R10. 32 LEFT LOWER QUADRANT PAIN 01/03/2016 BRADNON CISNEROS, DEEPIKA A Ot R11. 0 NAUSEA 01/03/2016 BRANDON CISNEROS, DEEPIKA A Ot R91. 1 SOLITARY PULMONARY NODULE 01/05/2016 GLORIA CISNEROS, PEGGY T Ot N20.2 CALCULUS OF KIDNEY WITH CALCULUS OF URET 01/05/2016 GLORIA CISNEROS, PEGGY T Ot N83.201 UNSPECIFIED OVARIAN CYST, RIGHT SIDE 01/05/2016 GLORIA CISNEROS, PEGGY T Ot R10.32 LEFT LOWER QUADRANT PAIN 01/05/2016 GLORIA CISNEROS, PEGGY T Ot R91.1 SOLITARY PULMONARY NODULE 01/05/2016 GLORIA CISNEROS, PEGGY T Ot Z85.820 PERSONAL HISTORY OF MALIGNANT MELANOMA O 01/06/2016 DEEPIKA TAYLOR MD A Ot N20. 2 CALCULUS OF KIDNEY WITH CALCULUS OF URET 01/06/2016 DEEPIKA TAYLOR MD A Ot N83.201 UNSPECIFIED OVARIAN CYST, RIGHT SIDE 01/06/2016 DEEPIKA TAYLOR MD A Ot R10. 32 LEFT LOWER QUADRANT PAIN 01/06/2016 DEEPIKA TAYLOR MD A Ot R11. 0 NAUSEA 01/06/2016 DEEPIKA TAYLOR MD A Ot R91. 1 SOLITARY PULMONARY NODULE 01/07/2016 GLORIA CISNEROS, PEGGY T Ot N20.2 CALCULUS OF KIDNEY WITH CALCULUS OF URET 01/07/2016 GLORIA CISNEROS, PEGGY T Ot N83.201 UNSPECIFIED OVARIAN CYST, RIGHT SIDE 01/07/2016 PEGGY CASTRO MD T Ot R10.32 LEFT LOWER QUADRANT PAIN 01/07/2016 GLORIA CISNEROS, PEGGY T Ot R91.1 SOLITARY PULMONARY NODULE 01/07/2016 GLORIA CISNEROS, PEGGY T Ot Z85.820 PERSONAL HISTORY OF MALIGNANT MELANOMA O 01/10/2016 DEEPIKA TAYLOR MD A Ot N20. 2 CALCULUS OF KIDNEY WITH CALCULUS OF URET 01/10/2016 DEEPIKA TAYLOR MD A Ot N83.201 UNSPECIFIED OVARIAN CYST, RIGHT SIDE 01/10/2016 DEEPIKA TAYLOR MD A Ot R10. 32 LEFT LOWER QUADRANT PAIN 01/10/2016 BRANDON CISNEROS, DEEPIKA A Ot R11. 0 NAUSEA 01/10/2016 BRANDON CISNEROS, DEEPIKA Davis Ot R91. 1 SOLITARY PULMONARY NODULE 01/10/2016 Ot 611.72 LUM P OR MASS IN BREAST 01/10/2016 Ot V76.12 OTH SCREEN MAMMO- MALIGN NEOPLASM OF JEZ 01/10/2016 Ot 793.80 UNS PEC ABNORMAL MAMMOGRAM 01/10/2016 Ot V76.12 OTH SCREEN MAMMO- MALIGN NEOPLASM OF JEZ 01/10/2016 PRACHI CISNEROS, MAXINE Barahona Ot Z12. 31 ENCNTR SCREEN MAMMOGRAM FOR MALIGNANT NE 01/10/2016 MIKALA CISNEROS, YONG Davis Ot N20.1 CALCULUS OF URETER 01/10/2016 MIKALA CISNEROS, YONG A Ot N20.1 CALCULUS OF URETER 01/13/2016 MIKALA CISNEROS, YONG A Ot N20.1 CALCULUS OF URETER 01/17/2016 MIKALA CISNEROS, YONG Davis Ot N20.1 CALCULUS OF URETER 01/28/2016 MIKALA CISNEROS, YONG A Ot N20.1 CALCULUS OF URETER 03/05/2016 MIKALA CISNEROS, YONG Davis Ot N20.9 URINARY CALCULUS, UNSPECIFIED 04/16/2016 MIKALA CISNEROS, YONG Davis Ot N20.9 URINARY CALCULUS, UNSPECIFIED 03/09/2017 Ot V76.12 OTH SCREEN MAMMO- MALIGN NEOPLASM OF JEZ 03/09/2017 MAXINE VELARDE MD Ot Z12. 31 ENCNTR SCREEN MAMMOGRAM FOR MALIGNANT NE 03/09/2017 YONG BACH MD Ot N20.1 CALCULUS OF URETER 03/09/2017 MIKALA CISNEROS, YONG Davis Ot N20.9 URINARY CALCULUS, UNSPECIFIED 03/10/2017 MAXINE VELARDE MD Ot Z12. 31 ENCNTR SCREEN MAMMOGRAM FOR MALIGNANT NE 03/23/2017 MAXINE VELARDE MD Ot Z12. 31 ENCNTR SCREEN MAMMOGRAM FOR MALIGNANT NE 09/16/2017 YONG BACH MD Ot Z87.4 42 PERSONAL HISTORY OF URINARY CALCULI 09/16/2017 YONG BACH MD Ot Z87.4 42 PERSONAL HISTORY OF URINARY CALCULI 11/17/2017 MAXINE VELARDE MD Ot Z12. 31 ENCNTR SCREEN MAMMOGRAM FOR MALIGNANT NE 11/17/2017 MIKALAYONG CASTLE MD, Ot N20.1 CALCULUS OF URETER 11/17/2017 YONG BACH MD, Ot N20.9 URINARY CALCULUS, UNSPECIFIED 05/02/2018 MAXINE VELARDE MD, Ot Z12. 31 ENCNTR SCREEN MAMMOGRAM FOR MALIGNANT NE 05/02/2018 YONG BACH MD, Ot Z87.4 42 PERSONAL HISTORY OF URINARY CALCULI 05/02/2018 MARILEE LOPEZ DC Ot M54.6 PAIN IN THORACIC SPINE 05/02/2018 MAXINE VELARDE MD, Ot Z12. 31 ENCNTR SCREEN MAMMOGRAM FOR MALIGNANT NE 07/26/2018 MAXINE VELARDE MD Ot Z01.818 ENCOUNTER FOR OTHER PREPROCEDURAL EXAMIN 07/29/2018 MAXINE VELARDE MD, Ot K29. 50 UNSPECIFIED CHRONIC GASTRITIS WITHOUT BL 07/29/2018 MAXINE VELARDE MD Ot K29. 80 DUODENITIS WITHOUT BLEEDING 08/03/2018 MAXINE VELARDE MD, Ot K29. 50 UNSPECIFIED CHRONIC GASTRITIS WITHOUT BL 08/03/2018 MAXINE VELARDE MD Ot K29. 80 DUODENITIS WITHOUT BLEEDING 09/22/2018 MAXINE VELARDE MD, Ot Z12. 31 ENCNTR SCREEN MAMMOGRAM FOR MALIGNANT NE 09/22/2018 YONG BACH MD, Ot Z87.4 42 PERSONAL HISTORY OF URINARY CALCULI 09/22/2018 MARILEE LOPEZ DC Ot M54.6 PAIN IN THORACIC SPINE 09/22/2018 MAXINE VELARDE MD, Ot Z12. 31 ENCNTR SCREEN MAMMOGRAM FOR MALIGNANT NE Procedures There is no data. Results Test Result Range Complete urinalysis with reflex to cultu re - 01/03/16 22:26 Urine color determination YELLOW NRG Urine clarity determination CLEAR NR G Urine pH measurement by test strip 6 5-9 Specific gravity of urine by test strip 1.025 1.016-1.022 Urine protein assay by test strip, semi-quantitative 2+ NEGATIVE Urine glucose detection by automated test strip NE GATIVE NEGATIVE Erythrocytes detection in urine sediment by light micr oscopy 5+ NEGATIVE Urine ketones detection by automated test strip 1+ NEGATIVE Urine nitrite detection by test strip POSITIVE NEGATIVE Urine total bilirubin detection by test strip 1+ NEGATIVE Urine urobilinogen measurement by automated test strip (mass/volume) 1 mg/dL NORMAL Urine leukocyte esterase detection by dipstick 3+ NEGATIVE Automated urine sediment erythrocyte cou nt by microscopy (number/high power field) [HPF] NRG Automated urine sediment leukocyte count by microscopy (number/high power field) [HPF] NRG Bacteria detection in urine sediment by light microsco py LARGE NRG Squamous epithelial cells detection in u rine sediment by light microscopy 10-25 NRG Crystals detection in urine sediment by light microsco py NONE NRG Casts detection in urine sediment by light microscopy NONE NRG Mucus detection in urine sediment by light microscopy NEGATIVE NRG Complete urinalysis with reflex to culture YES NRG Bacterial urine culture - 01/03/16 22:26 URINE CULTURE RESULTS <10,000/ML NRG Complete blood count (CBC) with automate d white blood cell (WBC) differential - 01/03/16 22:31 Blood leukocytes automated count (number/volume) 9.5 10*3/uL 4.3-11.0 Blood erythrocytes automated count (number/volume) 4.41 10*6/uL 4.35-5.85 Venous blood hemoglobin measurement (mass/volume) 13.7 g/dL 11.5-16.0 Blood hematocrit (volume fraction) 39 % 35-52 Automated erythrocyte mean corpuscular volume 88 [ foz_us] 80-99 Automated erythrocyte mean corpuscular h emoglobin (mass per erythrocyte) 31 pg 25-34 Automated erythrocyte mean corpuscular h emoglobin concentration measurement (mass/volume) 35 g/dL 32-36 Automated erythrocyte distribution width ratio 12. 2 % 10.0- 14.5 Automated blood platelet count (count/volume) 401 10*3/uL [...] 10*3 1.0-4.0 Blood monocytes automated count (number/volume) 0. 7 10*3 0.0-1.0 Automated eosinophil count 0.4 10*3/uL 0 .0-0.3 Automated blood basophil count (count/volume) 0.1 10*3/uL 0.0-0.1 Comprehensive metabolic panel - 01/03/16 22:31 Serum or plasma sodium measurement (moles/volume) 138 mmol/L 135-145 Serum or plasma potassium measurement (moles/volume) 3.6 mmol/L 3.6-5.0 Serum or plasma chloride measurement (moles/volume) 105 mmol/L 98-107 Carbon dioxide 22 mmol/L 21-32 Serum or plasma anion gap determination (moles/volume) 11 mmol/L 5-14 Serum or plasma urea nitrogen measurement (mass/volume ) 11 mg/dL 7-18 Serum or plasma creatinine measurement (mass/volume) 0.91 mg/dL 0.60-1.30 Serum or plasma urea nitrogen/creatinine mass ratio 12 NRG Serum or plasma creatinine measurement w ith calculation of estimated glomerular filtration rate > NRG Serum or plasma glucose measurement (mass/volume) 111 mg/dL 70-105 Serum or plasma calcium measurement (mass/volume) 9.1 mg/dL 8.5-10.1 Serum or plasma total bilirubin measurement (mass/volu me) 0.5 mg/dL 0.1-1.0 Serum or plasma alkaline phosphatase alcides surement (enzymatic activity/volume) 57 U/L 40-136 Serum or plasma aspartate aminotransfera se measurement (enzymatic activity/volume) 14 U/L 5-34 Serum or plasma alanine aminotransferase measurement (enzymatic activity/volume) 9 U/L 0-55 Serum or plasma protein measurement (mass/volume) 7.2 g/dL 6.4-8.2 Serum or plasma albumin measurement (mass/volume) 4.4 g/dL 3.2-4.5 Urine beta human chorionic gonadotropin (hCG) measurement - 01/10/16 06:40 Urine beta human chorionic gonadotropin (hCG) measurem ent NEGATIVE NEGATIVE Methicillin resistant Staphylococcus aur eus (MRSA) screening culture - 01/10/16 06:40 Methicillin resistant Staphylococcus aureus (MRSA) scr eening culture NEG NRG CD3+CD4+ (T4 helper) cells/100 [...] Sodium urate/total calculus mass ratio by infrared spe ctroscopy 90 % < 200 Sulfites [presence] in urine by test strip 4 < 30 Urine phosphate measurement (mass/volume) 922 % < 1100 Urine magnesium measurement (mass/volume) 49 % > 60 Urine calcium oxalate measurement 1.60 < 2.00 Urine calcium phosphate crystals detecti on by computer assisted method 2.86 < 2.00 24 hour urine sodium urate (saturation fraction) 6 .01 < 2.00 Triple phosphate crystals detection in u rine sediment by light microscopy 2.72 < 75.00 24 hour urine uric acid (saturation fraction) 1.62 < 2.00 Urine ammonium measurement 37 % 14- 62 Urine potassium measurement 36 % 19 -135 24 hour urine creatinine measurement (mass/time) 1 676 % 600- 1800 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 Visit Date/Time Discharge Status Pt. Type Provider Facility Loc./Unit Complaint [id number] 05/08/2013 12:14:00 05/08/2013 23:59: 59 CLS Outpatient GARY SAMANIEGO DO [id number] 06/05/2019 10:15:00 23:59:59 CLS Preadmit MAXINE VELARDE MD [facility] RAD SCREENING [id number] 09/22/2018 14:55:00 23:59:59 CLS Outpatient YONG BACH MD [facility] RAD H/O KIDNEY STONES [id number] 07/29/2018 08:17:00 11:40:00 DIS Outpatient MAXINE VELARDE MD [facility] ENDO DYSPHAGIA [id number] 07/26/2018 05:47:00 14:55:00 DIS Outpatient MAXINE VELARDE MD [facility] PREOP EGD [id number] 05/02/2018 08:00:00 23:59:59 CLS Outpatient MAXINE VELARDE MD [facility] RAD SCREENING [id number] 02/02/2018 15:15:00 23:59:59 CLS Outpatient MARILEE LOPEZ DC [facility] RAD PAIN IN THORACIC SPINE [id number] 09/14/2017 16:14:00 23:59:59 CLS Outpatient YONG BACH MD [facility] RAD H/O STONES [id number] 03/09/2017 08:43:00 23:59:59 CLS Outpatient MAXINE VELARDE MD [facility] RAD SCREENING [id number] 04/17/2016 00:09:00 23:59:59 CLS Preadmit YONG BACH MD, V [facility] LAB STONES [id number] 01/20/2016 16:00:00 00:01:00 DIS Outpatient YONG BACH MD [facility] LAB STONES [id number] 01/10/2016 06:15:00 09:40:00 DIS Outpatient YONG BACH MD [facility] SDC LEFT STONE [id number] 01/09/2016 13:36:00 23:59:59 CLS Outpatient YONG BACH MD [facility] RAD LT URETERAL STONE [id number] 01/04/2016 23:07:00 00:15:00 DIS Emergency PEGGY CASTRO MD [facility] ER AB PAIN [id number] 01/03/2016 22:03:00 23:30:00 DIS Emergency DEEPIKA TAYLOR MD [facility] ER PAIN IN L SIDE/TINGLING HANDS [id number] 05/29/2015 14:45:00 23:59:59 CLS Outpatient MAXINE VELARDE MD [facility] RAD SCREENING [id number] 10/27/2012 10:08:00 23:59:59 CLS Outpatient [id number] 05/10/2014 11:52:00 Document Registration [id number] 05/10/2014 11:52:00 Document Registration [id number] 03/04/2012 15:07:00 Document Registration [id number] 08/19/2010 14:20:00 Document Registration [id number] 08/07/2010 15:22:00 Document Registration [id number] 12/28/2008 08:58:00 Document Registration [id number] 11/21/2018 11:10:00 11/21/2018 23:59:5 9 [facility] JANY IRIZARRY [facility]
--- OUTSIDE RECORDS SUMMARY | 2019-06-10 20:11 | XMS REPORT ---
Author Author Charis SIEGEL Organization [facility] Address [address] [place] [address] Care Team Providers Care Cell Tester Name Role Phone MINDY SIEGEL Unavailable PROBLEMS Type Condition ICD9-CM Code SGA69-ZG Code Onset Dates Condition S tatus SNOMED Code Problem Other general medical examination for administrative purpo ses V70.3 Active [id number] ALLERGIES No Information ENCOUNTERS Encounter Location Date Diagnosis [facility] [address] [id number] [place], [place] [id number] Nov, Upper respiratory tract infection, unspe cified type J06.9 [facility] [address] [id number] [place] [address] Jun, [facility] [id number] [place] [address] Jun, [facility] [address] [id number] [place] [address] Apr, [facility] [address] [id number] [place] [address] Apr, [facility] [address] [id number] [place] [address] Jan, [facility] [address] [id number] [place] [address] Jan, IMMUNIZATIONS No Known Immunizations SOCIAL HISTORY Never Assessed REASON FOR VISIT PLAN OF CARE VITAL SIGNS Height 62 in 2013-05-08 Weight 185.8 lbs 2013-05-08 Temperature 98.6 degrees Fahrenheit 2013-05-08 Heart Rate 74 bpm 2013-05-08 Respiratory Rate 14 2013-05-08 Blood pressure systolic 128 mmHg 2013-05-08 Blood pressure diastolic 70 mmHg 2013-05-08 MEDICATIONS No Known Medications RESULTS No Results PROCEDURES No Known procedures INSTRUCTIONS MEDICATIONS ADMINISTERED No Known Medications MEDICAL (GENERAL) HISTORY Type Description Date Surgical History No know Surgical history
--- OUTSIDE RECORDS SUMMARY | 2019-06-10 20:11 | XMS REPORT ---
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 Name Role Phone MAXINE VELARDE Unavailable MAXINE VELARDE MD Unavailable Unavailable MARCELO BACH MD Unavailable Unavailable MARCELO BACH MD Unavailable Unavailable MAXINE VELARDE PCP MARILEE LOPEZ DC Unavailable Unavailable PCP, NONE Unavailable Unavailable MINDY SIEGEL Unavailable Allergies Normalized Allergy Reported Date of Reaction(s) Care Provider Facility Allergy Type classification allergen Allergy Onset MA (22 Unclassified NKANo Known 01-03-2016 - no information [facility] IAS MIKALA , Not Available sources.) Allergies (75680) Medications Medication Ingredient Drug Dose Dates Status Sig Sig Care Class(es) (Normalized) (Original) Provid er cetirizine Cetirizine Histamine-1 10 mg Complete take 1 Cetirizi ne (no hydrochlori Receptor d tablet by Hcl (All Day phone) de 10 mg Antagonist mouth once Allergy) 10 oral tablet daily Mg Tablet 10 (2 Mg ORAL sources.) Daily famotidine Famotidine Histamine-2 20 mg 07-30-19 Complete take 1 Famotidine Maxine D 20 mg oral Receptor 19 - d tablet by (Acid Guille so tablet (3 Antagonist 08-29-19 mouth once Controller) n (no sources.) 19 daily 20 Mg Tablet phone) 20 Mg ORAL Daily 30 Days 60 Tab Increase to twice daily morning and evening 07/29/18 nitrofurant NITROFURANT Nitrofuran 25 mg 01-10-20 Complete no Nitrofuranto Marcelo oin, OIN, Antibacteri 16 - d information in A macrocrysta MACROCRYSTA al 07-27-19 Monohyd/M-Cr Mikala ls 25 mg / LS / yst (no nitrofurant Nitrofurant (Macrobid phone) oin, oin, 100 Mg monohydrate Monohydrate Capsule) 100 75 mg oral Mg Capsule, capsule (2 1 Tab Oral sources.) Twice A Day With Meals 01/10/16 Discontinued Problems Active Problems Problem Normalized Date of Normalized Normalized Provider Fac ility Classification Problem(s) Problem Problem Problem Sta tus Onset/Resoluti Duration on Other upper Acute upper Episodic Active MINDY Turpin ity respiratory [facility] infections (1 infection, of [facility] source.) unspecified [place] ([address]) Translations: [ - Upper respiratory tract infection, unspecified type J06.9] Other Dysphagia Episodic Active MAXINE VELARDE [place] Via gastrointestin [address] [facility] (1 source.) ([address]673) Other Encounter for Episodic Active MAXINE VELARDE [facility] Via screening for screening MD [place] suspected mammogram for Hospital - conditions malignant [place] (not mental neoplasm of ([address]185) disorders or breast infectious Translations: disease) (10 [ OTH SCREEN sources.) MAMMO-MALIGN NEOPLASM OF JEZ] Spondylosis; Pain in Episodic Active MARILEE JOHN Not Av ailable intervertebral thoracic spine , [place] ([address]) disc disorders; other back problems (2 sources.) Melanomas of Personal Episodic Active no name no informa tion skin (2 history of sources.) malignant melanoma of skin NEGATED Solitary Episodic Active no name no informatio n no pulmonary information (4 nodule sources.) Gastritis and Unspecified no information Active MAXINE VELARDE [facility] Via duodenitis (6 chronic MD Luna sources.) gastritis Hospital - without [place] bleeding (01196) Translations: [ DUODENITIS WITHOUT BLEEDING] Past or Other Problems Problem Normalized Date of Normalized Normalized Provider Fac ility Classification Problem(s) Problem Problem Problem Sta tus Onset/Resoluti Duration on NEGATED Unspecified no information no information no name no information no ovarian cyst, information (4 right side sources.) Procedures Procedure Normalized Procedure Procedure Result Performer Facility Date 07-29-2018 Esophagogastroduodenos no information MAXINE Cabrera [place] [facility] ([address]) History and physical no information no name (no phone) Commu [facility] Health examination, [facility] ([address]) Immunizations Normalized Immunization Date Notes Care Provider Facili ty Immunization vaccine no information MAXINE VELARDE [id number] [place] [address] ia Translations: [ [facility] vaccine] (70913) Results The data below is from unstructured sourcesNo relevant diagnostic test, laboratory data and/or discharge summary information available.No relevant diagnostic test, laboratory data and/or discharge summary information available.No relevant diagnostic test, laboratory data and/or disc harge summary information available. No Results No Results Vital Signs Vital Sign Value Interpretation Reference Date Time Care Prov ider Facility (Normalized) (Normalized) Range Body height 157.48 cm (no code) cm 05-08-2013 [facility] 13:14-[address] [place] [address] ([id number]) Body 98.6 [degF] (no code) 97.8 - 99.0 05-08-2013 [facility] temperature [degF] 13:14-[address] [place] [address] ([address]) Body weight 84.28 kg (no code) kg 05-08-2013 [facility] 13:14-[address] [place] [address] ([id number]) Interventions No Information Plan of Treatment The data below is from unstructured sources Discharge Date 01/03/16 11:30pm Disposition 01 HOME, SELF-CARE Condition at Discharge Stable Instructions/Education Provided Neph rolithiasis (ED) Prescriptions See Medication Section Referrals MAXINE VELARDE MD [facility] Physician Discharge Date 01/05/16 12:15am Disposition 01 HOME, SELF-CARE Condition at Discharge Improved Instructions/Education Provided Neph rolithiasis (ED) Acute Abdominal Pain (ED) Prescriptions See Medication Section Referrals MAXINE VELARDE MD [facility] Physician Additional Instructions/Education Dr urbano plenty of clear liquids. Continue taking your [...] reviewed with patient and/or family. Voiced understanding. Prescriptions See Medication Section Discharge Date 07/26/18 2:55pm Prescriptions See Medication Section Discharge Date 07/29/18 11:40am Instructions/Education Provided EGD- ESOPHAGOGASTRODUODENOSCOPY Prescriptions See Medication Section Goals No Information Social History No Information Functional Status The data below is from unstructured sourcesNo functional status results.No functional status results.No functional status results.No functional status results.No functional status results.No functional status information available.No functional status information available.No functional status information available.No functional status information available. Mental Status No Information Encounters Encounter Normalized Encounter Encounter Diagnosis Care Provi rocío Organization Date Type 07-29-2018 Admission to day no information MAXINE CAREYON Work no organization name - surgery (no phone ) 07-29-2018 05-08-2013 [facility] no information MINDYDORIAN SIEGEL (n o phone) [facility] - Doctor Migration (no (no phone) 05-08-2013 phone) - 05-08-2013 01-13-2013 [facility] no information Doctor Migrati on (no [facility] - phone) (no phone) 01-13-2013 - 01-13-2013 11-21-2018 [facility] Acute upper PAYTON HUNZIKER (no [facility] respiratory infection, phone) [facility] (no phone) unspecified 09-14-2017 Patient encounter no information no name (no phone) no organization name (no phone) 03-09-2017 Patient encounter no information no name (no phone) no organization name (no phone) 04-17-2016 Patient encounter no information no name (no phone) no organization name (no phone) 01-20-2016 Patient encounter no information no name (no phone) no organization name - (no phone) 04-16-2016 NEGATED Patient encounter no information no name (no phone) no organization name 01-10-2016 (no phone) - 01-10-2016 NEGATED Patient encounter no information no name (no phone) no organization name 01-09-2016 (no phone) 05-29-2015 Patient encounter no information no name (no phone) no organization name (no phone) NEGATED Patient encounter no information no name (no phone) no organization name 03-04-2012 (no phone) 11-21-2018 Patient encounter no information no name (no phone) no organization name procedure (no phone) 09-22-2018 Patient encounter no information no name (no phone) no organization name procedure (no phone) 07-29-2018 Patient encounter no information no name (no phone) no organization name - procedure (no phone) 07-29-2018 07-26-2018 Patient encounter no information MAXINE Bello k no organization name - procedure (no phone ) 07-26-2018 MAXINE VELARDE 05-02-2018 Patient encounter no information no name (no phone) no organization name procedure (no phone) 02-02-2018 Patient encounter no information no name (no phone) no organization name procedure (no phone) 06-26-2014 Telephone encounter no information Doctor Migration (no [facility] phone) (no phone) 06-25-2014 Telephone encounter no information Doctor Migration (no [facility] phone) (no phone) no information Encounter for other no name (no phone) no org anization name preprocedural (no phone) examination Medical Equipment No Information Payers No Information History general Narrative - Reported Note Type Note Facility History general Narrative - Reported Type Surgical No know Surgical history History [facility] ([id number]) Advance Directives Directive Response Recor ded Date/Time Advance Directives No 10:15pm Health Care Power of Home Therapy Teacher No 01/03/16 10:15pm Organ Donor Yes 01/03/16 10:15pm Resuscitation Status Full Code 01/03/16 10:15pm Directive Response Recor ded Date/Time Advance Directives No 11:10pm Health Care Power of Home Therapy Teacher No 01/04/16 11:10pm Organ Donor Yes 01/04/16 11:10pm Resuscitation Status Full Code 01/04/16 11:10pm Directive Response Recor ded Date/Time Advance Directives No 6:35am Health Care Power of Home Therapy Teacher No 01/10/16 6:35am Organ Donor Yes 01/10/16 6:35am Directive Response Recor ded Date/Time Advance Directives No 2:49pm Health Care Power of Home Therapy Teacher No 07/26/18 2:49pm Organ Donor Yes 01/10/16 6:35am Resuscitation Status Full Code 07/26/18 2:49pm Directive Response Recor ded Date/Time Advance Directives No 9:09am Health Care Power of Home Therapy Teacher No 07/29/18 9:09am Organ Donor Yes 07/29/18 9:09am Resuscitation Status Full Code 07/29/18 9:09am Discharge Instructions No hospital discharge instructions.No hospital discharge instructions.No hospital discharge instructions.No hospital discharge instruction information available.No hospital discharge instruction information available. Additional Source Comments This clinical document has been generated using [employer] software that has been certified by the Office of the National Coordinator for Health Information Technology (ONC 15.99.04.3023.Diam.31.00.0.368760) and the National Committee for Construction Cost Estimator (NCQA, as an eMeasure certified technology). FOR RECORDS PERTAINING TO PATIENTS WHO ARE OR HAVE BEEN ENROLLED IN A CHEMICAL D EPENDENCY/SUBSTANCE ABUSE PROGRAM, SOME INFORMATION MAY BE OMITTED. This clinica l summary was aggregated from multiple sources. Caution should be exercised in using it in the provision of clinical care. This summary normalizes information from multiple sources, and as a consequence, information in this document may ma terially change the coding, format and clinical context of patient data. In richard tion, data may be omitted in some cases. CLINICAL DECISIONS SHOULD BE BASED ON T HE PRIMARY CLINICAL RECORDS. [employer] provides no warranty or guara ntee of the accuracy or completeness of information in this document.The followi ng information is based on time limited clinical information
--- NOTE | 2019-06-10 20:14 | ED GI ---
General Chief Complaint: Abdominal/GI Problems Stated Complaint: SIDE, RIBS AND BACK IN PAIN Source of Information: Patient Exam Limitations: No Limitations History of Present Illness Date Seen by Provider: Jun 10, 2019 Time Seen by Provider: 20:12 Initial Comments To to ER with reports of sudden onset right sided upper abdominal pain that radiates through to her back associated with nausea but no vomiting. This began a few hours ago, about 1 hour after eating. No history of this, she is unable to take a deep breath because of the pain but does not have shortness of breath cough or fever. No diarrhea. Timing/Duration: 1-2 Days Severity/Quality: Moderate Location: RUQ Radiation: No Radiation Activities at Onset: None Associated Symptoms: Nausea/Vomiting Allergies and Home Medications Allergies Coded Allergies: NKANo Known Allergies (Verified Allergy, Unknown, 01/03/16) Home Medications Cetirizine HCl 10 Mg Tablet, 10 MG PO DAILY, (Reported) Famotidine 20 Mg Tablet, 20 MG PO DAILY Increase to twice daily morning and evening Prescribed by: MAXINE VELARDE on 07/29/18 1038 Venlafaxine HCl 150 Mg Cap.er.24h, 150 MG PO DAILY, (Reported) Patient Home Medication List Home Medication List Reviewed: Yes Review of Systems Review of Systems Constitutional: see HPI EENTM: No Symptoms Reported Respiratory: No Symptoms Reported Cardiovascular: No Symptoms Reported Gastrointestinal: See HPI, Abdominal Pain, Nausea, Vomiting Genitourinary: No Symptoms Reported Musculoskeletal: no symptoms reported Skin: no symptoms reported Psychiatric/Neurological: No Symptoms Reported Endocrine: No Symptoms Reported Past Fhvmepa-Oupzer-Jsiwju Hx Patient Social History Recent Foreign Travel: No Contact w/Someone Who Travel: No Recent Hopitalizations: No Immunizations Up To Date Tetanus Booster (TDap): Less than 5yrs Seasonal Allergies Seasonal Allergies: No Past Medical History Surgeries: Yes (melanoma removed from stomach, kidney stone) Respiratory: No Cardiac: No Neurological: No Reproductive Disorders: No Sexually Transmitted Disease: No Genitourinary: No Kidney Stones Gastrointestinal: No (dysphagia) Gastroesophageal Reflux Musculoskeletal: No Endocrine: No Cancer: Yes Melanoma What Type of Treatment Did You: Surgical Intervention Psychosocial: No Integumentary: No Blood Disorders: No Physical Exam Vital Signs Vital Signs - First Documented 06/10/19 20:01 Temp 36.6 Pulse 107 Resp 18 B/P (MAP) 137/84 (101) Pulse Ox 100 Capillary Refill : Height/Weight/BMI Height: 5'4.00" Weight: 190lbs. 0.0oz. 86.229048zi; 32.6 BMI Method:Stated General Appearance: WD/WN, moderate distress (r/t pain) HEENT: PERRL/EOMI, normal ENT inspection Respiratory: no respiratory distress, no accessory muscle use Gastrointestinal: normal bowel sounds, soft, tenderness (RUQ) Extremities: normal range of motion, non-tender Neurologic/Psychiatric: alert, normal mood/affect, oriented x 3 Skin: normal color, warm/dry Progress/Results/Core Measures Results/Orders Lab Results Laboratory Tests Test 06/10/19 20:07 06/10/19 20:19 Range/Units White Blood Count 9.8 4.3-11.0 10^3/uL Red Blood Count 4.46 4.35-5.85 10^6/uL Hemoglobin 13.6 11.5-16.0 G/DL Hematocrit 40 35-52 % Mean Corpuscular Volume 90 80-99 FL Mean Corpuscular Hemoglobin 31 25-34 PG Mean Corpuscular Hemoglobin Concent 34 32-36 G/DL Red Cell Distribution Width 12.3 10.0-14.5 % Platelet Count 443 H 130-400 10^3/uL Mean Platelet Volume 8.6 7.4-10.4 FL Neutrophils (%) (Auto) 50 42-75 % Lymphocytes (%) (Auto) 35 12-44 % Monocytes (%) (Auto) 10 0-12 % Eosinophils (%) (Auto) 4 0-10 % Basophils (%) (Auto) 1 0-10 % Neutrophils # (Auto) 4.9 1.8-7.8 X 10^3 Lymphocytes # (Auto) 3.4 1.0-4.0 X 10^3 Monocytes # (Auto) 1.0 0.0-1.0 X 10^3 Eosinophils # (Auto) 0.4 H 0.0-0.3 10^3/uL Basophils # (Auto) 0.1 0.0-0.1 10^3/uL Sodium Level 139 135-145 MMOL/L Potassium Level 3.6 3.6-5.0 MMOL/L Chloride Level 106 98-107 MMOL/L Carbon Dioxide Level 23 21-32 MMOL/L Anion Gap 10 5-14 MMOL/L Blood Urea Nitrogen 6 L 7-18 MG/DL Creatinine 0.81 0.60-1.30 MG/DL Estimat Glomerular Filtration Rate > 60 BUN/Creatinine Ratio 7 Glucose Level 91 70-105 MG/DL Calcium Level 9.5 8.5-10.1 MG/DL Corrected Calcium 9.2 8.5-10.1 MG/DL Total Bilirubin 0.3 0.1-1.0 MG/DL Aspartate Amino Transf (AST/SGOT) 17 5-34 U/L Alanine Aminotransferase (ALT/SGPT) 11 0-55 U/L Alkaline Phosphatase 67 40-136 U/L Total Protein 7.4 6.4-8.2 GM/DL Albumin 4.4 3.2-4.5 GM/DL Lipase 95 H 8-78 U/L Serum Test, Qualitative NEGATIVE NEGATIVE Urine Color YELLOW Urine Clarity CLEAR Urine pH 6.5 5-9 Urine Specific [place] 1.025 H 1.016-1.022 Urine Protein NEGATIVE NEGATIVE Urine Glucose (UA) NEGATIVE NEGATIVE Urine Ketones NEGATIVE NEGATIVE Urine Nitrite NEGATIVE NEGATIVE Urine Bilirubin NEGATIVE NEGATIVE Urine Urobilinogen 0.2 < = 1.0 MG/DL Urine Leukocyte Esterase TRACE H NEGATIVE Urine RBC (Auto) NEGATIVE NEGATIVE Urine RBC NONE /HPF Urine WBC 0-2 /HPF Urine Squamous Epithelial Cells 2-5 /HPF Urine Crystals NONE /LPF Urine Bacteria MODERATE H /HPF Urine Casts NONE /LPF Urine Mucus NEGATIVE /LPF Urine Culture Indicated YES My Orders Orders - LYNDSEY PRUITT NAIL ARTIST Cbc With Automated Diff (06/10/19 20:08) Comprehensive Metabolic Panel (06/10/19 20:08) Lipase (06/10/19 20:08) Ua Culture If Indicated (06/10/19 20:08) Hcg,Qualitative Serum (06/10/19 20:08) Ondansetron Injection (Zofran Injectio (06/10/19 20:15) Ketorolac Injection (Toradol Injection) (06/10/19 20:15) Fentanyl Injection (Sublimaze Injection (06/10/19 20:15) Ct Abd/Pelvis Wo(Kidney Stone) (06/10/19 20:10) Urine Culture (06/10/19 20:19) Rx-Hydrocodone/Apap 5-325 Mg (Rx-Vicodin (3/28/20 21:30) Rx-Ondansetron Po (Rx-Zofran Po) (06/10/19 21:17) Medications Given in ED Current Medications Medications Dose Ordered Sig/Toya Route Start Time Stop Time Status Last Admin Dose Admin Fentanyl Citrate 50 mcg ONCE ONCE IVP 06/10/19 20:15 06/10/19 20:16 DC 06/10/19 20:15 50 MCG Ketorolac Tromethamine 15 mg ONCE ONCE IVP 06/10/19 20:15 06/10/19 20:16 DC 06/10/19 20:15 15 MG Ondansetron HCl 8 mg ONCE ONCE IVP 06/10/19 20:15 06/10/19 20:16 DC 06/10/19 20:15 8 MG Vital Signs/I&O 06/10/19 20:01 Temp 36.6 Pulse 107 Resp 18 B/P (MAP) 137/84 (101) Pulse Ox 100 Departure Impression Primary Impression: RUQ pain Additional Impression: Biliary colic Disposition: HOME, SELF-CARE Condition: Stable Departure-Patient Inst. Decision time for Depature: 21:09 Referrals: MAXINE VELARDE MD (PCP/Family) Primary Care Physician Patient Instructions: Low Cholesterol, Saturated Fat, and Trans Fat Diet , NO INSTRUCTIONS GIVEN Add. Discharge Instructions: 1. Return to ER for any concern 2. Call Dr Velarde on Wednesday to make an appointment for follow up which may include a gallbladder ultrasound and/or hepatobiliary scan. 3. Low fat, no greasy food diet until you see Dr Velarde. All discharge instructions reviewed with patient and/or family. Voiced understanding. Copy Copies To 1: MAXINE VELARDE MD, PETER J APRN Jun 10, 2019 20:14
[2019-06-10] MEDS ORDERED: ONDANSETRON 4 MG/2 ML (SDV) Z0FRAN IVP ONE (20:15)
[2019-06-10] MEDS ORDERED: KETOROLAC 30 MG/ML VIAL IVP ONE (20:15)
[2019-06-10] MEDS ORDERED: fentaNYL INJECTION 100 MCG/2 ML AMP IVP ONE (20:15)
[2019-06-10 20:19] LABS: BASOPHILS # (AUTO) 0.1 10^3/uL (0.0-0.1); BASOPHILS % (AUTO) 1 % (0-10); EOSINOPHILS # (AUTO) 0.4 10^3/uL (0.0-0.3); EOSINOPHILS % (AUTO) 4 % (0-10); HEMATOCRIT 40 % (35-52); HEMOGLOBIN 13.6 G/DL (11.5-16.0); LYMPHOCYTES # (AUTO) 3.4 X 10^3 (1.0-4.0); LYMPHOCYTES % (AUTO) 35 % (12-44); MEAN CORPUSCULAR HEMOGLOBIN 31 PG (25-34); MEAN CORPUSCULAR HGB CONC 34 G/DL (32-36); MEAN CORPUSCULAR VOLUME 90 FL (80-99); MEAN PLATELET VOLUME 8.6 FL (7.4-10.4); MONOCYTES % (AUTO) 10 % (0-12); NEUTROPHILS # (AUTO) 4.9 X 10^3 (1.8-7.8); NEUTROPHILS % (AUTO) 50 % (42-75); PLATELET COUNT 443 10^3/uL (130-400); RED CELL DISTRIBUTION WIDTH 12.3 % (10.0-14.5); WHITE BLOOD COUNT 9.8 10^3/uL (4.3-11.0)
[2019-06-10 20:30] LABS: BILIRUBIN,URINE NEGATIVE (NEGATIVE); CLARITY,URINE CLEAR; COLOR,URINE YELLOW; GLUCOSE, URINE (UA) NEGATIVE (NEGATIVE); KETONES,URINE NEGATIVE (NEGATIVE); LEUKOCYTE ESTERASE ,URINE TRACE (NEGATIVE); NITRITE,URINE NEGATIVE (NEGATIVE); PH,URINE 6.5 (5-9); PROTEIN,URINE NEGATIVE (NEGATIVE)
[2019-06-10 20:37] LABS: BACTERIA,URINE MODERATE /HPF; WBC,URINE 0-2 /HPF
[2019-06-10 20:44] LABS: BUN/CREATININE RATIO 7; CARBON DIOXIDE 23 MMOL/L (21-32); CHLORIDE 106 MMOL/L (98-107); CREATININE SERUM 0.81 MG/DL (0.60-1.30); POTASSIUM 3.6 MMOL/L (3.6-5.0); SODIUM 139 MMOL/L (135-145)
[2019-06-10 20:45] LABS: ALANINE AMINOTRANSFERASE 11 U/L (0-55); ALBUMIN 4.4 GM/DL (3.2-4.5); ALKALINE PHOSPHATASE 67 U/L (40-136); BILIRUBIN,TOTAL 0.3 MG/DL (0.1-1.0); CALCIUM 9.5 MG/DL (8.5-10.1); GFR ESTIMATED > 60; GLUCOSE 91 MG/DL (70-105); LIPASE 95 U/L (8-78); TOTAL PROTEIN 7.4 GM/DL (6.4-8.2)
--- NOTE | 2019-06-10 21:07 | Diagnostic Imaging Report ---
PROCEDURE: CT urinary tract, rule out kidney stone. TECHNIQUE: Multiple contiguous axial images were obtained through the abdomen and pelvis without the use of intravenous contrast. Auto Exposure Controls were utilized during the CT exam to meet ALARA standards for radiation dose reduction. INDICATION: Right-sided flank pain. Evaluate for calculi. COMPARISON: 01/03/2016. FINDINGS: The heart is unremarkable. The included lung bases are clear. No evidence of hydronephrosis or obstructing renal calculi. Bilateral nonobstructing calculi are seen, with the largest on the right, measuring 5 mm and the largest on the left measuring 2 mm. A cortical cyst is again seen in the inferior pole of the right kidney, similar to the prior exam. No perinephric fat stranding is seen. The liver, spleen, pancreas and adrenal glands have an unremarkable noncontrast CT appearance. There is no pathologically enlarged mesenteric or retroperitoneal adenopathy. The bowel loops are nondilated. The appendix is visualized in the right lower quadrant and has an unremarkable appearance.. There is no free fluid or free air. The osseous structures are age-appropriate. The urinary bladder is decompressed. There is no free air, loculated collection or adenopathy in the pelvis. IMPRESSION: 1. Bilateral nonobstructing renal calculi. No obstructing calculi or hydronephrosis. 2. No bowel obstruction, free fluid or free air. Normal appendix. Dictated by: Dictated on workstation # [id number]
[2019-06-10] MEDS ORDERED: RX-ONDANSETRON 4 MG ODT (ZOFRAN) PPK #4 PO STA (21:17)
[2019-06-10 21:29] VITALS: BP 121/85
[2019-06-10] MEDS ORDERED: RX-HYDROCODONE/APAP 5/325 MG #4 TAB PK PO PRN (21:30)
== END 2019-06-10 21:31 | disposition home or self-care (01) ==
LOC: EDUNIT# 20:01 → ER 20:06
DX: R10.11 Right upper quadrant pain (principal); K80.50 Calculus of bile duct without cholangitis or cholecystitis without obstruction; K21.9 Gastro-esophageal reflux disease without esophagitis
CPT/HCPCS: 36415; 74176; 80053; 81000; 83690; 84703; 85025; 87088

== ENCOUNTER 2019-06-16 08:35 | Emergency (ER) | payer OTHER ==
[~2019-06-16] VITALS: Ht 164 cm; Wt 72.5 kg
[~2019-06-16 08:35] MED LIST changes: -BENA40TA5
[2019-06-16] MEDS ORDERED: LACTATED RINGERS 1,000 ML IV ONE ×2 (08:42→09:43)
[2019-06-16] MEDS ORDERED: ONDANSETRON 4 MG/2 ML (SDV) Z0FRAN IVP ONE (08:45)
--- NOTE | 2019-06-16 08:59 | ED Cardiac General ---
History of Present Illness General Stated Complaint: PALPITATIONS Source: patient History of Present Illness Date Seen by Provider: Jun 16, 2019 Time Seen by Provider: 08:29 Initial Comments PT ARRIVES VIA POV C/O PALPITATIONS FOR THE LAST COUPLE OF DAYS--FEELING LIKE HER HEART IS RACING AND SKIPPING BEATS OFF AND ON STATES SHE "FEELS FOGGY--BRAIN FOG" OFF AND ON FOR THE LAST COUPLE OF DAYS STATES SHE HAS HAD SLIGHT NUMBNESS AND TINGLING IN HER FINGERS FOR THE LAST COUPLE OF DAYS NO CHEST PAIN STATES TODAY SHE HAD A VERY SLIGHT "HARD TIME CATCHING HER BREATH" -BRIEFLY THIS AM. NOT NOW C/O VERY SLIGHT NAUSEA AT TIMES, NOT NOW NO VOMITING NO DIARRHEA NO FEVER NO COUGH STATES SHE WAS SEEN IN ER ON WEDNESDAY NIGHT FOR RUQ PAIN--THAT PAIN IS GONE NOW HAD OUTPATIENT ULTRASOUND OF HER GALLBLADDER THIS AM, AND JUST FINISHED HAVING IT DONE, SO DECIDED TO CHECK IN SINCE SHE WAS ALREADY HERE. PT HAS BEEN NPO SINCE LAST NIGHT, AND HAS HAD DECREASED INTAKE THE LAST COUPLE OF DAYS NO KNOWN SICK CONTACTS OR OTHER RECENT ILLNESS LMP--NOW, BEGAN YESTERDAY, NORMAL. NO CONTROL PT SEEN IN COVID-UNIT PPE WORN AT ALL TIMES Allergies and Home Medications Allergies Coded Allergies: NKANo Known Allergies (Verified Allergy, Unknown, 01/03/16) Home Medications Cetirizine HCl 10 Mg Tablet, 10 MG PO DAILY, (Reported) Famotidine 20 Mg Tablet, 20 MG PO DAILY Increase to twice daily morning and evening Prescribed by: MAXINE VELARDE on 07/29/18 1038 Venlafaxine HCl 150 Mg Cap.er.24h, 150 MG PO DAILY, (Reported) Patient Home Medication List Home Medication List Reviewed: Yes Review of Systems Review of Systems Constitutional: No chills, No diaphoresis, No dizziness, No fever EENTM: No Symptoms Reported; No Blurred Vision, No Ear Pain, No Nose Congestion, No Throat Pain Respiratory: See HPI; Denies Cough; Shortness of Air; Denies Wheezing Cardiovascular: Denies Chest Pain, Denies Edema; Irregular Heart Rate; Denies Lightheadedness; Palpitations; Denies Syncope Gastrointestinal: See HPI, Abdominal Pain; Denies Diarrhea; Nausea; Denies Vomiting Genitourinary: No Symptoms Reported Musculoskeletal: no symptoms reported Skin: no symptoms reported Psychiatric/Neurological: See HPI; Denies Headache; Paresthesia; Denies Weakness Endocrine: No Symptoms Reported Hematologic/Lymphatic: No Symptoms Reported Past Xwhgfuk-Dkrskr-Dojexp Hx Past Med/Social Hx: Reviewed and Corrections made Patient Social History Alcohol Use: Denies Use Recreational Drug Use: No Smoking Status: Former Smoker (1/2 PPD, QUIT 20 YEARS AGO) Type Used: Cigarettes Recent Hopitalizations: No Immunizations Up To Date Tetanus Booster (TDap): Less than 5yrs PED Vaccines UTD: Yes Seasonal Allergies Seasonal Allergies: No Past Medical History Surgeries: Yes (melanoma removed from stomach, kidney stone;EGD 2019) Renal Respiratory: No Cardiac: No Neurological: No Reproductive Disorders: No Female Reproductive Disorders: Denies Sexually Transmitted Disease: No Genitourinary: Yes Kidney Stones Gastrointestinal: Yes (DYSPHAGIA; GASTRITIS/EROSIONS NOTED ON EGD 2019) Gastroesophageal Reflux Musculoskeletal: No Endocrine: No HEENT: No Cancer: Yes Melanoma Did You Recieve Any Treatments: Yes What Type of Treatment Did You: Surgical Intervention Psychosocial: No Integumentary: No Blood Disorders: No Physical Exam Vital Signs Vital Signs - First Documented 06/16/19 08:35 Temp 36.8 Pulse 117 Resp 16 B/P (MAP) 129/77 (94) Pulse Ox 98 Capillary Refill : Height, Weight, BMI Height: 5'4.00" Weight: 190lbs. 0.0oz. 86.746821cs; 28.00 BMI Method:Stated General Appearance: No Apparent Distress, WD/WN, Other (DOES NOT APPEAR ILL OR TO BE IN ANY DISCOMFORT OR DISTRESS WHATSOEVER.) HEENT: PERRL/EOMI, TMs Normal, Normal ENT Inspection, Pharynx Normal Neck: Full Range of Motion, Normal Inspection, Non Tender, Supple Respiratory: Normal Breath Sounds, No Accessory Muscle Use, No Respiratory Distress Cardiovascular: No Edema, No JVD, No Murmur, Normal Peripheral Pulses, Tachycardia Gastrointestinal: Normal Bowel Sounds, No Organomegaly, No Pulsatile Mass, Soft, Tenderness (SLIGHT EPIGASTRIC AND RUQ TENDERNESS) Extremity: Normal Capillary Refill, Normal Inspection, Normal Range of Motion, Non Tender, No Calf Tenderness, No Pedal Edema Neurologic/Psychiatric: Alert, Oriented x3, No Motor/Sensory Deficits, Normal 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, 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 Skin: Normal Color, Warm/Dry; No Rash Progress/Results/Core Measures Results/Orders Lab Results Laboratory Tests Test 06/16/19 08:52 06/16/19 10:09 Range/Units White Blood Count 8.3 4.3-11.0 10^3/uL Red Blood Count 4.64 4.35-5.85 10^6/uL Hemoglobin 14.1 11.5-16.0 G/DL Hematocrit 42 35-52 % Mean Corpuscular Volume 90 80-99 FL Mean Corpuscular Hemoglobin 30 25-34 PG Mean Corpuscular Hemoglobin Concent 34 32-36 G/DL Red Cell Distribution Width 12.2 10.0-14.5 % Platelet Count 398 130-400 10^3/uL Mean Platelet Volume 8.8 7.4-10.4 FL Neutrophils (%) (Auto) 74 42-75 % Lymphocytes (%) (Auto) 16 12-44 % Monocytes (%) (Auto) 6 0-12 % Eosinophils (%) (Auto) 3 0-10 % Basophils (%) (Auto) 1 0-10 % Neutrophils # (Auto) 6.2 1.8-7.8 X 10^3 Lymphocytes # (Auto) 1.3 1.0-4.0 X 10^3 Monocytes # (Auto) 0.5 0.0-1.0 X 10^3 Eosinophils # (Auto) 0.3 0.0-0.3 10^3/uL Basophils # (Auto) 0.1 0.0-0.1 10^3/uL Prothrombin Time 14.8 H 12.2-14.7 SEC INR Comment 1.1 0.8-1.4 Activated Partial Thromboplast Time 28 24-35 SEC Sodium Level 140 135-145 MMOL/L Potassium Level 4.2 3.6-5.0 MMOL/L Chloride Level 106 98-107 MMOL/L Carbon Dioxide Level 23 21-32 MMOL/L Anion Gap 11 5-14 MMOL/L Blood Urea Nitrogen 11 7-18 MG/DL Creatinine 0.86 0.60-1.30 MG/DL Estimat Glomerular Filtration Rate > 60 BUN/Creatinine Ratio 13 Glucose Level 108 H 70-105 MG/DL Calcium Level 9.2 8.5-10.1 MG/DL Corrected Calcium 9.0 8.5-10.1 MG/DL Magnesium Level 1.8 1.6-2.4 MG/DL Total Bilirubin 0.7 0.1-1.0 MG/DL Aspartate Amino Transf (AST/SGOT) 14 5-34 U/L Alanine Aminotransferase (ALT/SGPT) 11 0-55 U/L Alkaline Phosphatase 46 40-136 U/L Total Creatine Kinase 49 29-168 U/L Creatine Kinase MB 0.5 <6.6 NG/ML Troponin I < 0.028 <0.028 NG/ML B-Type Natriuretic Peptide < 10.0 <100.0 PG/ML Total Protein 7.0 6.4-8.2 GM/DL Albumin 4.2 3.2-4.5 GM/DL Amylase Level 63 25-125 U/L Lipase 54 8-78 U/L TSH [place] Testing 1.17 0.35-4.94 UIU/ML Serum Test, Qualitative NEGATIVE NEGATIVE Urine Color YELLOW Urine Clarity CLEAR Urine pH 6.5 5-9 Urine Specific [place] 1.010 L 1.016-1.022 Urine Protein NEGATIVE NEGATIVE Urine Glucose (UA) NEGATIVE NEGATIVE Urine Ketones NEGATIVE NEGATIVE Urine Nitrite NEGATIVE NEGATIVE Urine Bilirubin NEGATIVE NEGATIVE Urine Urobilinogen 0.2 < = 1.0 MG/DL Urine Leukocyte Esterase NEGATIVE NEGATIVE Urine RBC (Auto) 2+ H NEGATIVE Urine RBC RARE /HPF Urine WBC RARE /HPF Urine Squamous Epithelial Cells 2-5 /HPF Urine Crystals NONE /LPF Urine Bacteria NEGATIVE /HPF Urine Casts NONE /LPF Urine Mucus NEGATIVE /LPF Urine Culture Indicated NO Urine Opiates Screen NEGATIVE NEGATIVE Urine Oxycodone Screen NEGATIVE NEGATIVE Urine Methadone Screen NEGATIVE NEGATIVE Urine Propoxyphene Screen NEGATIVE NEGATIVE Urine Barbiturates Screen NEGATIVE NEGATIVE Ur Tricyclic Antidepressants Screen NEGATIVE NEGATIVE Urine Phencyclidine Screen NEGATIVE NEGATIVE Urine Amphetamines Screen POSITIVE H NEGATIVE Urine Methamphetamines Screen NEGATIVE NEGATIVE Urine Benzodiazepines Screen NEGATIVE NEGATIVE Urine Cocaine Screen NEGATIVE NEGATIVE Urine Cannabinoids Screen NEGATIVE NEGATIVE My Orders Orders - JAKOB TORRES DO Ed Iv/Invasive Line Start (06/16/19 08:42) Ekg Tracing (06/16/19 08:42) Monitor-Rhythm Ecg Trace Only (06/16/19 08:42) Orthostatic Vital Signs (Adult (06/16/19 08:42) Chest 1 View, Ap/Pa Only (06/16/19 08:42) Amylase (06/16/19 08:42) BNP (06/16/19 08:42) Cbc With Automated Diff (06/16/19 08:42) Comprehensive Metabolic Panel (06/16/19 08:42) Creatine Kinase (06/16/19 08:42) Creatine Kinase Mb (06/16/19 08:42) Drug Screen Stat (Urine) (06/16/19 08:42) Hcg,Qualitative Serum (06/16/19 08:42) Lipase (06/16/19 08:42) Magnesium (06/16/19 08:42) Protime With Inr (06/16/19 08:42) Partial Thromboplastin Time (06/16/19 08:42) Thyroid Analyzer (06/16/19 08:42) Ua Culture If Indicated (06/16/19 08:42) Troponin I (06/16/19 08:42) Ed Iv/Invasive Line Start (06/16/19 08:42) Lactated Ringers (Lr 1000 Ml Iv Solution (06/16/19 08:42) Ondansetron Injection (Zofran Injectio (06/16/19 08:45) Ed Iv/Invasive Line Start (06/16/19 09:43) Lactated Ringers (Lr 1000 Ml Iv Solution (06/16/19 09:43) Medications Given in ED Current Medications Medications Dose Ordered Sig/Toya Route Start Time Stop Time Status Last Admin Dose Admin Lactated Ringer's 1,000 ml @ 0 mls/hr Q0M ONCE IV 06/16/19 08:42 06/16/19 08:45 DC 06/16/19 09:00 0 MLS/HR Lactated Ringer's 1,000 ml @ 0 mls/hr Q0M ONCE IV 06/16/19 09:43 06/16/19 09:44 DC 06/16/19 09:49 0 MLS/HR Ondansetron HCl 4 mg ONCE ONCE IVP 06/16/19 08:45 06/16/19 08:46 DC 06/16/19 09:00 4 MG Vital Signs/I&O 06/16/19 06/16/19 08:35 09:06 Temp 36.8 Pulse 117 110 112 122 Resp 16 B/P (MAP) 129/77 (94) 119/79 (92) 128/79 (95) 122/81 (95) Pulse Ox 98 Progress Progress Note : Progress Note COVID TESTING NOT PERFORMED, BASED ON CURRENT TESTING GUIDELINES PT HAS NOT HAD FEVER, NO COUGH, NO SIGNIFICANT SHORTNESS OF BREATH, NO KNOWN SICK CONTACTS, NO PNEUMONIA ON CXR. UNEVENTFUL ER STAY VITALS STABLE--HEART RATE DOWN, NO ARRHYTHMIAS OF ANY KIND DURING ER STAY GIVEN IV FLUIDS NO SYMPTOMS OF ANY KIND AT DISMISSAL REVIEWED ULTRASOUND RESULTS WITH PT--+CHOLELITHIASIS Initial ECG Impression Date: Jun 16, 2019 Initial ECG Impression Time: 08:56 Initial ECG Rate: 106 Initial ECG Rhythm: S.Tach Diagnostic Imaging Comments CXR--PER RADIOLOGIST REPORT AT 0931 FINDINGS: The cardiac silhouette and pulmonary vasculature within normal limits. The lungs are clear. No pleural effusion. No pneumothorax. No acute osseous abnormality. IMPRESSION: No acute cardiopulmonary abnormality Reviewed: Reviewed by Me Departure Impression Primary Impression: Palpitations Additional Impressions: Mild dehydration Cholelithiasis Disposition: 01 HOME, SELF-CARE Condition: Improved Departure-Patient Inst. Referrals: MAXINE VELARDE MD (PCP/Family) Primary Care Physician Patient Instructions: Dehydration, Adult (DC), Palpitations (DC), Gallstones (DC) Add. Discharge Instructions: HOME, REST LOTS OF CLEAR LIQUIDS--WATER, BROTH, JELLO, GATORADE FOLLOW UP WITH YOUR DR NEXT WEEK FOR FURTHER CARE, RETURN TO ER IF WORSE FOLLOW UP WITH DR. SANDERSON NEXT WEEK ADVISED JAKOB TORRES DO Jun 16, 2019 08:59
[2019-06-16 09:01] LABS: BASOPHILS # (AUTO) 0.1 10^3/uL (0.0-0.1); BASOPHILS % (AUTO) 1 % (0-10); EOSINOPHILS # (AUTO) 0.3 10^3/uL (0.0-0.3); EOSINOPHILS % (AUTO) 3 % (0-10); HEMATOCRIT 42 % (35-52); HEMOGLOBIN 14.1 G/DL (11.5-16.0); LYMPHOCYTES # (AUTO) 1.3 X 10^3 (1.0-4.0); LYMPHOCYTES % (AUTO) 16 % (12-44); MEAN CORPUSCULAR HEMOGLOBIN 30 PG (25-34); MEAN CORPUSCULAR HGB CONC 34 G/DL (32-36); MEAN CORPUSCULAR VOLUME 90 FL (80-99); MEAN PLATELET VOLUME 8.8 FL (7.4-10.4); MONOCYTES # (AUTO) 0.5 X 10^3 (0.0-1.0); MONOCYTES % (AUTO) 6 % (0-12); NEUTROPHILS # (AUTO) 6.2 X 10^3 (1.8-7.8); NEUTROPHILS % (AUTO) 74 % (42-75); PLATELET COUNT 398 10^3/uL (130-400); RED CELL DISTRIBUTION WIDTH 12.2 % (10.0-14.5); WHITE BLOOD COUNT 8.3 10^3/uL (4.3-11.0)
[2019-06-16 09:06] VITALS: BP_SYST 119; BP_SYST 122; BP_SYST 128; BP_DIAS 79; BP_DIAS 81
--- OUTSIDE RECORDS SUMMARY | 2019-06-16 09:07 | XMS REPORT ---
Author Author [facility] Organization [facility] Address [address] [address] Care Team Providers Care [place] Farmer Name Role Phone MAXINE VELARDE Unavailable MAXINE VELARDE MD Unavailable Unavailable YONG BACH MD Unavailable Unavailable YONG BACH MD Unavailable Unavailable MAXINE VELARDE PCP MARILEE LOPEZ DC Unavailable Unavailable PCP, NONE Unavailable Unavailable MINDY SIEGEL Unavailable LYNDSEY PRUITT APRN Unavailable Unavailable Allergies Normalized Allergy Reported Date of Reaction(s) Care Provider Facility Allergy Type classification allergen Allergy Onset MA (22 Unclassified NKANo Known 01-03-2016 - no information [facility] IAS MIKALA , Not Available sources.) Allergies (02151) Medications Medication Ingredient Drug Dose Dates Status [...] Nitrofuran 25 mg 01-10-20 Complete no Nitrofuranto Yogn oin, OIN, Antibacteri 16 - d information [...] Episodic Active MINDY Turpin ity respiratory [facility] infections (1 infection, of [place] source.) unspecified [place] ([address]) Translations: [ - Upper respiratory tract infection, unspecified type J06.9] Biliary tract Calculus of 06-13-2019 - Episodic Active LYNDSEY RAMOS [facility] disease (1 bile duct IRINEO Luna source.) without Hospital - cholangitis or [place] cholecystitis (34597) without obstruction Other Dysphagia Episodic Active MAXINE VELARDE [facility] gastrointestin [address] [facility] (1 source.) ([address]) Other Encounter for Episodic Active SREE PATEL [facility] screening for screening MD Luna suspected mammogram for Hospital - conditions malignant [place] (not mental neoplasm of ([address]) disorders or breast infectious Translations: disease) (10 [ OTH SCREEN sources.) MAMMO-MALIGN NEOPLASM OF JEZ] Esophageal Gastro-esophag 06-13-2019 - Chronic Active LYNDSEY RAMOS [facility] disorders (1 eal reflux IRINEO Luna source.) disease Hospital - without [place] esophagitis ([address]) Spondylosis; Pain in Episodic Active MARILEE RESTREPOIS Not Av ailable intervertebral thoracic spine , [place] ([address]) disc disorders; other back problems (2 sources.) Melanomas of Personal Episodic Active no name no informa tion skin (2 history of sources.) malignant melanoma of skin NEGATED Solitary Episodic Active no name no informatio n no pulmonary information (4 nodule sources.) Gastritis and Unspecified no information Active SREE PATEL [facility] duodenitis (6 chronic MD Luna sources.) gastritis Hospital - without [place] bleeding (51757) Translations: [ DUODENITIS WITHOUT BLEEDING] Past or Other Problems Problem Normalized Date of Normalized Normalized Provider Fac ility Classification Problem(s) Problem Problem Problem Sta tus Onset/Resoluti Duration on NEGATED Unspecified no information no information no name no information no ovarian cyst, information (4 right side sources.) Procedures Procedure Normalized Procedure Procedure Result Performer Facility Date 07-29-2018 Esophagogastroduodenos no information MAXINE Cabrera [facility] ([id number]) History and physical no information no name (no phone) Greyson akhtar [facility] examination, [facility] ([address]) Immunizations Normalized Immunization Date Notes Care Provider Facili ty Immunization vaccine no information MAXINE VELARDE [address] [facility] [address] [address] Translations: [ [facility] vaccine] (11491) Results The data below is from unstructured [...] height 157.48 cm (no code) cm 05-08-2013 [facility] 13:14-[address] [place] [address] ([address]) Body 98.6 [degF] (no code) 97.8 - 99.0 05-08-2013 [facility] temperature [degF] 13:14-[address] [place] [address] ([address]) Body weight 84.28 kg (no code) kg 05-08-2013 [facility] 13:14-[address] [place] [address] ([id number]) Interventions No Information Plan of Treatment The data below is from unstructured sources Discharge Date 01/03/16 11:30pm Disposition 01 HOME, SELF-CARE Condition at Discharge Stable Instructions/Education Provided Neph rolithiasis (ED) Prescriptions See Medication Section Referrals MAXINE VELARDE MD [facility] Physician Discharge Date 01/05/16 12:15am Disposition 01 HOME, SELF-CARE Condition at Discharge Improved Instructions/Education Provided Neph rolithiasis (ED) Acute Abdominal Pain (ED) Prescriptions See Medication Section Referrals MAXINE VELARDE MD [place] [facility] Physician Additional Instructions/Education Dr urbano plenty of [...] 07-29-2018 Admission to day no information MAXINE VELARDE Work no organization name - surgery (no phone ) 07-29-2018 05-08-2013 [facility] no information MINDY SIEGEL (n o phone) [facility] - Doctor Migration (no (no phone) 05-08-2013 phone) - 05-08-2013 01-13-2013 [facility] no information Doctor Migrati on (no [facility] - phone) (no phone) 01-13-2013 - 01-13-2013 11-21-2018 [facility] Acute upper [place] (no [facility] [employer] [facility] respiratory infection, phone) [employer] [facility] (no phone) unspecified 06-10-2019 Emergency department no information LYNDSEY DAVENPORT (no [facility] - patient visit phone) [facility] 06-10-2019 (no phone) 09-14-2017 Patient encounter no information no name [...] phone) no organization name 03-04-2012 (no phone) 06-10-2019 Patient encounter no information LYNDSEY PRUITT APRN (no [facility] procedure phone) [facility] (no phone) 11-21-2018 Patient encounter no information no name (no phone) no organization name procedure (no phone) 09-22-2018 Patient encounter no information no name (no phone) no organization name procedure (no phone) 07-29-2018 Patient encounter no information no name (no phone) no organization name - procedure (no phone) 07-29-2018 07-26-2018 Patient encounter no information MAXINE VELARDE Wor k no organization name - procedure (no phone ) 07-26-2018 MAXINE VELARDE 05-02-2018 Patient encounter no information no name (no phone) no organization name procedure (no phone) 02-02-2018 Patient encounter no information no name (no phone) no organization name procedure (no phone) 06-26-2014 Telephone encounter no information Doctor Migration (no [facility] phone) (no phone) 06-25-2014 Telephone encounter no information Doctor Migration (no [facility] phone) (no phone) no information Encounter for other no name (no phone) no org anization name preprocedural (no phone) examination Medical Equipment No Information Payers No Information History general Narrative - Reported Note Type Note Facility History general Narrative - Reported Type Surgical No know Surgical history History [facility] ([id number]) Advance Directives Directive Response Recor ded Date/Time Advance Directives No 10:15pm Health Care Power of Mascara Molder No 01/03/16 10:15pm Organ Donor Yes 01/03/16 10:15pm Resuscitation Status Full Code 01/03/16 10:15pm Directive Response Recor ded Date/Time Advance Directives No 11:10pm Health Care Power of Mascara Molder No 01/04/16 11:10pm Organ Donor Yes 01/04/16 11:10pm Resuscitation Status Full Code 01/04/16 11:10pm Directive Response Recor ded Date/Time Advance Directives No 6:35am Health Care Power of Mascara Molder No 01/10/16 6:35am Organ Donor Yes 01/10/16 6:35am Directive Response Recor ded Date/Time Advance Directives No 2:49pm Health Care Power of Mascara Molder No 07/26/18 2:49pm Organ Donor Yes 01/10/16 6:35am Resuscitation Status Full Code 07/26/18 2:49pm Directive Response Recor ded Date/Time Advance Directives No 9:09am Health Care Power of Mascara Molder No 07/29/18 9:09am Organ Donor Yes 07/29/18 9:09am Resuscitation Status Full Code 07/29/18 9:09am Discharge Instructions No hospital discharge instructions.No hospital discharge instructions.No hospital discharge instructions.No hospital discharge instruction information available.No hospital discharge instruction information available. Additional Source Comments This clinical document has been generated using [employer] software that has been certified by the Office of the National Coordinator for Health Information Technology (ONC 15.99.04.3023.Diam.31.00.0.429574) and the National Committee for Operations Research Manager (NCQA, as an eMeasure certified technology). FOR [...] BASED ON T HE PRIMARY CLINICAL RECORDS. [employer] provides no warranty or guara ntee of the accuracy or completeness of information in this document.The followi ng information is based on time limited clinical information
--- OUTSIDE RECORDS SUMMARY | 2019-06-16 09:08 | XMS REPORT | Continuity of Care Document ---
[...] R10. 32 LEFT LOWER QUADRANT PAIN 01/03/2016 BRANDON CISNEROS, DEEPIKA A Ot R11. 0 [...] CALCULUS, UNSPECIFIED 05/02/2018 MAXINE VELARDE MD Ot Z12. 31 ENCNTR SCREEN MAMMOGRAM FOR MALIGNANT NE 05/02/2018 YONG BACH MD Ot Z87.4 42 PERSONAL HISTORY OF URINARY CALCULI 05/02/2018 MARILEE LOPEZ DC Ot M54.6 PAIN IN THORACIC SPINE 05/02/2018 MAXINE VELARDE MD Ot Z12. 31 ENCNTR SCREEN MAMMOGRAM FOR MALIGNANT NE 07/26/2018 MAXINE VELARDE MD Ot Z01.818 ENCOUNTER FOR OTHER PREPROCEDURAL EXAMIN 07/29/2018 MAXINE VELARDE MD Ot K29. 50 UNSPECIFIED CHRONIC GASTRITIS WITHOUT BL 07/29/2018 MAXINE VELARDE MD Ot K29. 80 DUODENITIS WITHOUT BLEEDING 08/03/2018 MAXINE VELARDE MD Ot K29. 50 UNSPECIFIED CHRONIC GASTRITIS WITHOUT BL 08/03/2018 MAXINE VELARDE MD Ot K29. 80 DUODENITIS WITHOUT BLEEDING 09/22/2018 MAXINE VELARDE MD Ot Z12. 31 ENCNTR SCREEN MAMMOGRAM FOR MALIGNANT NE 09/22/2018 YONG BACH MD Ot Z87.4 42 PERSONAL HISTORY OF URINARY CALCULI 09/22/2018 MARILEE LOPEZ DC Ot M54.6 PAIN IN THORACIC SPINE 09/22/2018 MAXINE VELARDE MD Ot Z12. 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 See Below NRG Complete blood count (CBC) with automate d white blood cell (WBC) differential - 06/10/19 20:07 Blood leukocytes automated count (number/volume) 9.8 10*3/uL 4.3-11.0 Blood erythrocytes automated count (number/volume) 4.46 10*6/uL 4.35-5.85 Venous blood hemoglobin measurement (mass/volume) 13.6 g/dL 11.5-16.0 Blood hematocrit (volume fraction) 40 % 35-52 Automated erythrocyte mean corpuscular volume 90 [ foz_us] 80-99 Automated erythrocyte mean corpuscular h emoglobin (mass per erythrocyte) 31 pg 25-34 Automated erythrocyte mean corpuscular h emoglobin concentration measurement (mass/volume) 34 g/dL 32-36 Automated erythrocyte distribution width ratio 12. 3 % 10.0- 14.5 Automated blood platelet count (count/volume) 443 10*3/uL 130-400 Automated blood platelet mean volume measurement 8.6 [foz_us] 7.4-10.4 Automated blood neutrophils/100 leukocytes 50 % 42-75 Automated blood lymphocytes/100 leukocytes 35 % 12-44 Blood monocytes/100 leukocytes 10 % 0-12 Automated blood eosinophils/100 leukocytes 4 % 0-10 Automated blood basophils/100 leukocytes 1 % 0-10 Blood neutrophils automated count (number/volume) 4.9 10*3 1.8-7.8 Blood lymphocytes automated count (number/volume) 3.4 10*3 1.0-4.0 Blood monocytes automated count (number/volume) 1. 0 10*3 0.0-1.0 Automated eosinophil count 0.4 10*3/uL 0 .0-0.3 Automated blood basophil count (count/volume) 0.1 10*3/uL 0.0-0.1 Serum or plasma choriogonadotropin (preg izabella test) detection - 06/10/19 20:07 Serum or plasma choriogonadotropin ( test) de tection NEGATIVE NEGATIVE Comprehensive metabolic panel - 06/10/19 20:07 Serum or plasma sodium measurement (moles/volume) 139 mmol/L 135-145 Serum or plasma potassium measurement (moles/volume) 3.6 mmol/L 3.6-5.0 Serum or plasma chloride measurement (moles/volume) 106 mmol/L 98-107 Carbon dioxide 23 mmol/L 21-32 Serum or plasma anion gap determination (moles/volume) 10 mmol/L 5-14 Serum or plasma urea nitrogen measurement (mass/volume ) 6 mg/dL 7-18 Serum or plasma creatinine measurement (mass/volume) 0.81 mg/dL 0.60-1.30 Serum or plasma urea nitrogen/creatinine mass ratio 7 NRG Serum or plasma creatinine measurement w ith calculation of estimated glomerular filtration rate > NRG Serum or plasma glucose measurement (mass/volume) 91 mg/dL 70-105 Serum or plasma calcium measurement (mass/volume) 9.5 mg/dL 8.5-10.1 Serum or plasma total bilirubin measurement (mass/volu me) 0.3 mg/dL 0.1-1.0 Serum or plasma alkaline phosphatase alcides surement (enzymatic activity/volume) 67 U/L 40-136 Serum or plasma aspartate aminotransfera se measurement (enzymatic activity/volume) 17 U/L 5-34 Serum or plasma alanine aminotransferase measurement (enzymatic activity/volume) 11 U/L 0-55 Serum or plasma protein measurement (mass/volume) 7.4 g/dL 6.4-8.2 Serum or plasma albumin measurement (mass/volume) 4.4 g/dL 3.2-4.5 CALCIUM CORRECTED 9.2 mg/dL 8.5-10.1 Lipase - 06/10/19 20:07 Lipase 95 U/L 8-78 Complete urinalysis with reflex to cultu re - 06/10/19 20:19 Urine color determination YELLOW NRG Urine clarity determination CLEAR NR G Urine pH measurement by test strip 6.5 5-9 Specific gravity of urine by test strip 1.025 1.016-1.022 Urine protein assay by test strip, semi-quantitative NEGATIVE NEGATIVE Urine glucose detection by automated test strip NE GATIVE NEGATIVE Erythrocytes detection in urine sediment by light micr oscopy NEGATIVE NEGATIVE Urine ketones detection by automated test strip NE GATIVE NEGATIVE Urine nitrite detection by test strip NEGATIVE NEGATIVE Urine total bilirubin detection by test strip NEGA TIVE NEGATIVE Urine urobilinogen measurement by automated test strip (mass/volume) 0.2 mg/dL < = 1.0 Urine leukocyte esterase detection by dipstick TRA CE NEGATIVE Automated urine sediment erythrocyte cou nt by microscopy (number/high power field) NONE NRG Automated urine sediment leukocyte count by microscopy (number/high power field) [HPF] NRG Bacteria detection in urine sediment by light microsco py MODERATE NRG Squamous epithelial cells detection in u rine sediment by light microscopy 2-5 NRG Crystals detection in urine sediment by light microsco py NONE NRG Casts detection in urine sediment by light microscopy NONE NRG Mucus detection in urine sediment by light microscopy NEGATIVE NRG Complete urinalysis with reflex to culture YES NRG Bacterial urine culture - 06/10/19 20:19 Bacterial urine culture 3 OR MORE NRG COLONY COUNT 80,000 CFU/ML NRG SUSCEPTIBILITY GRAM POSITIVE; SUGGESTING PROBABLE NRG MRSA SCREEN COLLECTION CONTAMINATION WITH SKIN ABEL RA NRG RAPID ID NO SUSCEPTIBILITY PERFORMED N RG Encounters ACCT No. Visit Date/Time Discharge Status Pt. 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[employer] [facility] ER SIDE, RIBS AND BACK IN PAIN [id number] 06/05/2019 10:15:00 23:59:59 CLS Preadmit MAXINE VELARDE MD [facility] RAD SCREENING [id number] 09/22/2018 14:55:00 23:59:59 CLS Outpatient YONG BACH MD [facility] RAD H/O KIDNEY STONES [id number] 07/29/2018 08:17:00 11:40:00 DIS Outpatient MAXINE VELARDE MD [facility] ENDO DYSPHAGIA [id number] 07/26/2018 05:47:00 14:55:00 DIS Outpatient MAXINE VELARDE MD [facility] PREOP EGD [id number] 05/02/2018 08:00:00 23:59:59 CLS Outpatient MAXINE VELARDE MD [facility] RAD SCREENING [id number] 02/02/2018 15:15:00 018 23:59:59 CLS Outpatient MARILEE LOPEZ DC [facility] RAD PAIN IN THORACIC SPINE [id number] 09/14/2017 16:14:00 018 23:59:59 CLS Outpatient YONG BACH MD [facility] RAD H/O STONES [id number] 03/09/2017 08:43:00 017 23:59:59 CLS Outpatient MAXINE VELARDE MD [facility] RAD SCREENING [id number] 04/17/2016 00:09:00 017 23:59:59 CLS Preadmit YONG BACH MD, V [facility] LAB STONES [id number] 01/20/2016 16:00:00 00:01:00 DIS Outpatient YONG BACH MD [facility] LAB STONES [id number] 01/10/2016 06:15:00 09:40:00 DIS Outpatient YONG BACH MD [facility] SDC LEFT STONE [id number] 01/09/2016 13:36:00 23:59:59 CLS Outpatient YONG BACH MD [facility] RAD LT URETERAL STONE [id number] 01/04/2016 23:07:00 00:15:00 DIS Emergency PEGGY CASTRO MD [facility] ER AB PAIN [id number] 01/03/2016 22:03:00 23:30:00 DIS Emergency DEEPIKA TAYLOR MD [facility] ER PAIN IN L SIDE/TINGLING HANDS [id number] 05/29/2015 14:45:00 23:59:59 CLS Outpatient MAXINE VELARDE MD [facility] RAD SCREENING [id number] 10/27/2012 10:08:00 013 23:59:59 CLS Outpatient [id number] 06/16/2019 08:00:00 P EN Preadmit MAXINE VELARED MD [facility] RAD RUQ ABD PAIN [id number] 05/10/2014 11:52:00 Document Registration [id number] 05/10/2014 11:52:00 Document Registration [id number] 03/04/2012 15:07:00 Document Registration [id number] 08/19/2010 14:20:00 Document Registration [id number] 08/07/2010 15:22:00 Document Registration [id number] 12/28/2008 08:58:00 Document Registration [id number] 11/21/2018 11:10:00 11/21/2018 23:59:5 9 CLS Outpatient JUAN C LAC, [facility]
--- NOTE | 2019-06-16 09:14 | Diagnostic Imaging Report ---
INDICATION: Palpitations COMPARISON: None available TECHNIQUE: Single frontal radiograph of the chest dated 06/16/2019. FINDINGS: The cardiac silhouette and pulmonary vasculature within normal limits. The lungs are clear. No pleural effusion. No pneumothorax. No acute osseous abnormality. IMPRESSION: No acute cardiopulmonary abnormality. Dictated by: Dictated on workstation # [id number]
[2019-06-16 09:16] LABS: INR 1.1 (0.8-1.4); PROTHROMBIN TIME PATIENT 14.8 SEC (12.2-14.7)
[2019-06-16 09:29] LABS: ALANINE AMINOTRANSFERASE 11 U/L (0-55); ALBUMIN 4.2 GM/DL (3.2-4.5); ALKALINE PHOSPHATASE 46 U/L (40-136); AMYLASE 63 U/L (25-125); BILIRUBIN,TOTAL 0.7 MG/DL (0.1-1.0); BUN/CREATININE RATIO 13; CALCIUM 9.2 MG/DL (8.5-10.1); CARBON DIOXIDE 23 MMOL/L (21-32); CHLORIDE 106 MMOL/L (98-107); CREATINE KINASE 49 U/L (29-168); CREATININE SERUM 0.86 MG/DL (0.60-1.30); GFR ESTIMATED > 60; GLUCOSE 108 MG/DL (70-105); LIPASE 54 U/L (8-78); MAGNESIUM 1.8 MG/DL (1.6-2.4); POTASSIUM 4.2 MMOL/L (3.6-5.0); SODIUM 140 MMOL/L (135-145)
[2019-06-16 09:50] LABS: CREATINE KINASE MB 0.5 NG/ML (<6.6); TSH (THYROID ANALYZER) 1.17 UIU/ML (0.35-4.94)
[2019-06-16] MEDS ORDERED: BENA40TA5 (10:13)
[2019-06-16 10:19] LABS: BILIRUBIN,URINE NEGATIVE (NEGATIVE); CLARITY,URINE CLEAR; COLOR,URINE YELLOW; GLUCOSE, URINE (UA) NEGATIVE (NEGATIVE); KETONES,URINE NEGATIVE (NEGATIVE); LEUKOCYTE ESTERASE ,URINE NEGATIVE (NEGATIVE); NITRITE,URINE NEGATIVE (NEGATIVE); PH,URINE 6.5 (5-9); PROTEIN,URINE NEGATIVE (NEGATIVE)
[2019-06-16 10:27] LABS: BACTERIA,URINE NEGATIVE /HPF; RBC,URINE RARE /HPF; WBC,URINE RARE /HPF
[2019-06-16 10:32] LABS: AMPHETAMINE SCREEN, URINE POSITIVE (NEGATIVE); BARBITURATE SCREEN URINE NEGATIVE (NEGATIVE); BENZODIAZEPINES SCREEN URINE NEGATIVE (NEGATIVE); CANNABINOID SCREEN, URINE NEGATIVE (NEGATIVE); COCAINE SCREEN URINE NEGATIVE (NEGATIVE); METHADONE STAT NEGATIVE (NEGATIVE); METHAMPHETAMINE SCREEN URINE S NEGATIVE (NEGATIVE); OPIATE SCREEN URINE NEGATIVE (NEGATIVE); OXYCODONE STAT NEGATIVE (NEGATIVE); PROPOXYPHENE STAT NEGATIVE (NEGATIVE); TRICYCLIC ANTIDEPRESSANTS SCRE NEGATIVE (NEGATIVE)
[2019-06-16 11:00] VITALS: BP 115/70
== END 2019-06-16 11:00 | disposition home or self-care (01) ==
LOC: EDUNIT# 08:35 → ER 08:37
DX: R00.2 Palpitations (principal); E86.0 Dehydration; K80.20 Calculus of gallbladder without cholecystitis without obstruction; K21.9 Gastro-esophageal reflux disease without esophagitis; Z87.891 Personal history of nicotine dependence; Z85.820 Personal history of malignant melanoma of skin
CPT/HCPCS: 36415; 71045; 80053; 80306; 81000; 82150; 82550; 82553; 83690; 83735; 83880; 84443; 84484; 84703; 85025; 85610; 85730; 93041

== ENCOUNTER → 2019-06-16 | Outpatient (CLI) | payer OTHER ==
[~2019-06-16] MED LIST changes: +BENA40TA5
--- NOTE | 2019-06-16 09:42 | Diagnostic Imaging Report ---
INDICATION: Right upper quadrant pain. PROCEDURE: Ultrasound abdomen complete. TECHNIQUE: Multiple real-time grayscale images were obtained of the abdomen in various projections. Liver measures 15 cm in size. No discrete liver mass is detected. The portal vein is patent and shows normal direction of flow. The gallbladder contains small stones. No wall thickening is detected. Extrahepatic bile duct is not well-visualized. No definite biliary duct dilatation is seen. The spleen is normal in size at 8.5 cm. Aorta is nonaneurysmal. IVC is patent. Right kidney does contain a 19 mm cyst in the lower pole. Both kidneys are without calculi. No hydronephrosis is seen. There is no ascites. IMPRESSION: 1. Cholelithiasis without evidence of acute cholecystitis. 2. Right renal cyst. Dictated by: Dictated on workstation # [id number]
== END ==
LOC: RAD 07:44
PROVIDERS: ATTEND Internal Medicine
DX: K80.20 Calculus of gallbladder without cholecystitis without obstruction (principal); N28.1 Cyst of kidney, acquired
CPT/HCPCS: 76700

== ENCOUNTER 2019-06-21 09:15 | Outpatient (CLI) | payer OTHER ==
[~2019-06-21] VITALS: Ht 162 cm; Wt 75.0 kg
[~2019-06-21 09:15] MED LIST changes: +BENA40TA5
[2019-06-21] MEDS ORDERED: BENA20TA7 PO (09:22)
[2019-06-22] MEDS ORDERED: HYDR-4227 PO (08:50)
== END 2019-06-21 09:48 | disposition home or self-care (01) ==
LOC: PREOP 09:15
PROVIDERS: ATTEND Surgery
DX: Z01.818 Encounter for other preprocedural examination (principal)

== ENCOUNTER 2019-06-22 08:15 | Day surgery (SDC) | payer OTHER ==
[~2019-06-22] VITALS: Ht 163 cm; Wt 75.0 kg
[2019-06-22] VITALS (10 sets, daily range): BP systolic 105–128; BP diastolic 68–79
[~2019-06-22 08:15] MED LIST changes: +BENA20TA7 PO
[2019-06-22] MEDS ORDERED: ceFAZolin 2 GM IV Premixed 50 ML IV ONE (08:45)
--- NOTE | 2019-06-22 08:48 | Progress Note-Pre Operative ---
Pre-Operative Progress Note H&P Reviewed The H&P was reviewed, patient examined and no changes noted. Date Seen by Provider: Jun 22, 2019 Time Seen by Provider: 08:45 Date H&P Reviewed: Jun 22, 2019 Time H&P Reviewed: 08:30 Pre-Operative Diagnosis: Symptomatic chronic calculous cholecystitis SCHUYLER DAVE SUPERVISOR COMPOUNDING AND FINISHING Jun 22, 2019 08:48
[2019-06-22] MEDS: LACTATED RINGERS 1,000 ML IV PRN ×2 (08:49→10:25)
[2019-06-22] MEDS ORDERED: HYDR-4227 PO (08:50)
--- NOTE | 2019-06-22 08:50 | Discharge Inst-Surgical ---
D/C Lap Instructions-KIDO Reconcile Patient Problems Problems Reviewed?: Yes New, Converted, or Re-Newed RX: RX on Chart Follow Up Appt in 2 weeks Activity as tolerated No driving for 24 hours No driving while on pain medications Incentive Spirometry use every 2 hours while awake Regular Diet Symptoms to Report: Fever over 101 degree F, Nausea/Vomiting Infection Signs and Symptoms to report: Increased redness, Foul odor of wound, Increased drainage Bathing instructions: May shower Operative Area Clean/Dry; Keep incision clean/dry If any problems/questions: Contact your physician or go to Emergency Room SCHUYLER DAVE APRN Jun 22, 2019 08:50
[2019-06-22] MEDS ORDERED: morphine INJ 10 MG/ML 1ML (SYR OR VIAL) IVP PRN (09:00)
[2019-06-22] MEDS ORDERED: ONDANSETRON 4 MG/2 ML (SDV) Z0FRAN IVP PRN ×2 (09:00→11:15)
[2019-06-22] MEDS ORDERED: oxyCODONE/APAP 5/325MG (PERCOCET 5) TABLET PO PRN (09:00)
[2019-06-22] MEDS ORDERED: ACETAMINOPHEN 325 MG TABLET PO PRN (09:00)
[2019-06-22] MEDS ORDERED: BUP/EPI 0.5% 1:200,000 (SENSORCAINE) 30 ML VIAL ONE (09:21)
[2019-06-22] MEDS ORDERED: fentaNYL INJECTION 100 MCG/2 ML AMP ONE (09:38)
[2019-06-22] MEDS ORDERED: MIDAZOLAM 2 MG/2 ML (VERSED) VIAL ONE (09:38)
[2019-06-22] MEDS ORDERED: ROCURONIUM 10 MG/ML 5 ML SYRINGE IV ONE (10:43)
[2019-06-22] MEDS ORDERED: proPOfol 200 MG/20 ML (DIPRIVAN) VIAL IV ONE (10:43)
[2019-06-22] MEDS ORDERED: DEXAMETHASONE 10 MG/ML (DECADRON) 1 ML VIAL ONE (10:43)
[2019-06-22] MEDS ORDERED: LIDOCAINE PF 2% 5 ML (XYLOCAINE) VIAL ONE (10:43)
[2019-06-22] MEDS ORDERED: SEVOFLURANE (ULTANE) 15 ML INHAL SOLN ONE (10:43)
[2019-06-22] MEDS ORDERED: SUCCINYLCHOLINE INJ 100 MG/5 ML SYR ONE (10:43)
[2019-06-22] MEDS ORDERED: NEOSTIGMINE 3 MG/3 ML VIAL ONE (10:43)
[2019-06-22] MEDS ORDERED: ONDANSETRON 4 MG/2 ML (SDV) Z0FRAN ONE (10:43)
[2019-06-22] MEDS ORDERED: GLYCOPYRROLATE 0.2 MG/ML (ROBINUL) 2 ML VIAL ONE (10:43)
--- NOTE | 2019-06-22 10:51 | Progress Note-Post Operative ---
Post-Operative Progess Note Surgeon (s)/Drier Unloader (s) Surgeon MORRIS MATHIS MD Drier Unloader: tracey gaston MANAGER TERMINAL Pre-Operative Diagnosis Symptomatic chronic calculous cholecystitis Post-Operative Diagnosis same Procedure & Operative Findings Date of Procedure 06/22/19 Procedure Performed/Findings laparoscopic cholecystectomy. Anesthesia Type get Estimated Blood Loss Estimated blood loss (mL): minimal Specimens/Packing Specimens Removed gallbladder. MORRIS MATHIS MD Jun 22, 2019 10:51
[2019-06-22] MEDS ORDERED: morphine INJ 10 MG/ML 1ML (SYR OR VIAL) IVP ONE (11:15)
--- NOTE | 2019-06-22 13:22 | Anesthesia-General Post-Op ---
General Patient Condition Mental Status/LOC: Same as Preop Cardiovascular: Satisfactory Nausea/Vomiting: Absent Respiratory: Satisfactory Pain: Controlled Complications: Absent Post Op Complications Complications None Follow Up Care/Instructions Patient Instructions None needed. Anesthesia/Patient Condition Patient Condition Patient is doing well, no complaints, stable vital signs, no apparent adverse anesthesia problems. No complications reported per nursing. WILMA ROJAS CRNA Jun 22, 2019 13:22
--- NOTE | 2019-06-22 14:05 | OPERATIVE REPORT ---
DATE OF SERVICE: 06/22/2019 ATTENDING PRIMARY CARE PHYSICIAN: Khari Valadez MD. PREOPERATIVE DIAGNOSIS: Symptomatic cholelithiasis. POSTOPERATIVE DIAGNOSIS: Symptomatic cholelithiasis. PROCEDURE: Laparoscopic cholecystectomy. SURGEON: Morris Mathis MD. BUYER ASSISTANT: Carlos Javed APRN. ANESTHESIA: General endotracheal. ESTIMATED BLOOD LOSS: Minimal. FINDINGS: Multiple gallstones. DISPOSITION: The patient tolerated the procedure well. INDICATIONS: The patient is a 49-year-old female referred over to us for symptomatic cholelithiasis. For the past several months, she has had pain in the right upper abdominal quadrant with radiation towards the back after eating a meal and has also been experiencing nausea and vomiting. She states that she has had milder forms of this for the past year; however, the past few weeks this has become much more significant much as well as a more prevalent. An ultrasound was performed, which did show gallstones. DESCRIPTION OF PROCEDURE: The patient was brought to the operating room and laid supine on the table. After adequate IV pain and sedative medications and general endotracheal intubation, the abdomen was prepped and draped in a standard surgical fashion. A 0.5% Marcaine with epinephrine was used to anesthetize the overlying skin in the left upper abdominal quadrant and transverse skin incision made using a 15 blade. A 0 silk suture was applied to the medial aspect of incision for retraction and a Veress needle inserted with a low opening pressure of 0 mmHg and the abdomen was then insufflated to 15 mmHg pressure. The Veress needle was removed and a 5 mm XL trocar placed followed by a 5 mm 45-degree angle laparoscope visualizing the peritoneal cavity. A 4-quadrant abdominal exploration was performed. There was gallbladder distention; however, no gallbladder wall thickening. The liver, stomach, omentum and small bowel appeared normal. Under direct visualization, we then proceeded to place a supraumbilical 10 mm port after the skin and peritoneal lining were anesthetized using 0.5% Marcaine with epinephrine and a transverse skin incision made using a 15 blade. In a similar manner, a right upper abdominal quadrant 5 mm port was placed. The patient was then placed in reverse Trendelenburg position as well as plane right side up, left side down. The fundus of the gallbladder was then retracted anteriorly and superiorly. The hepatoduodenal ligament was then opened using cautery as well as blunt dissection using the hook instrument. The entire critical view of safety was identified including the triangle of Calot as well as the cystic duct and artery is only two structures going into the gallbladder as well as the cystic plate behind the proximal gallbladder. A timeout was then taken and the cystic duct and artery were then clipped proximally and distally and cut with EndoShear. The gallbladder was then dissected off the liver bed using cautery on hook instrument with visualization of good hemostasis as well as no leaking ducts of Luschka. The gallbladder was removed through the 10 mm port site using an EndoCatch bag. The 10 mm port site fascia and peritoneum were then closed under direct visualization using a Otf-Alfred device and 0 Vicryl suture. The abdomen was desufflated and remaining ports removed. All skin incisions were closed using 4-0 Monocryl and running subcuticular sutures. Wounds were then cleaned and covered with Dermabond. The patient tolerated the procedure well. We will start IV normal pain medication as well as a clear liquid diet. When she is tolerating clears, has good pain control with oral pain medications and ambulating well, we will discharge her home. She will be instructed to do no heavy lifting or exertion for the next two weeks. Job ID: [id number] DocumentID: [id number] Dictated Date: 06/22/2019 10:53:39 Psychiatric Nurse Practitioner Date: 06/22/2019 14:04:53 Dictated By: MORRIS MATHIS MD
== END 2019-06-22 13:10 | disposition home or self-care (01) ==
LOC: SDC 08:15
PROVIDERS: ATTEND Surgery
DX: K80.10 Calculus of gallbladder with chronic cholecystitis without obstruction (principal); I10 Essential (primary) hypertension; K21.0 Gastro-esophageal reflux disease with esophagitis; F41.9 Anxiety disorder, unspecified; F32.9 Major depressive disorder, single episode, unspecified; Z87.891 Personal history of nicotine dependence; Z85.820 Personal history of malignant melanoma of skin; Z79.899 Other long term (current) drug therapy; Z11.2 Encounter for screening for other bacterial diseases
CPT/HCPCS: 84703; 87081; 88304

== ENCOUNTER → 2019-09-28 | Outpatient (CLI) | payer OTHER ==
[~2019-09-28] MED LIST changes: +HYDR-4227 PO
--- NOTE | 2019-09-28 17:13 | Diagnostic Imaging Report ---
INDICATION: Evaluate for kidney stones. COMPARISON: CT dated 06/10/2019. FINDINGS: Single supine radiographic view of the abdomen was obtained and demonstrates nondistended loops of small bowel. There is no large collection of free peritoneal air. Moderate air and stool are seen scattered throughout the colon. Punctate extraosseous calcification is noted projecting over the inferior pole of the right kidney. This is felt to correspond to calculus seen on previous CT dated 06/10/2019. No other unexpected extraosseous calcifications or radiopaque foreign bodies are seen. Bony structures show no gross acute abnormalities. IMPRESSION: 1. Nonobstructed small bowel gas pattern. 2. Moderate colonic air and stool. Please correlate for constipation 3. Right renal calculus. Dictated by: Dictated on workstation # [id number]
== END ==
LOC: RAD 14:34
PROVIDERS: ATTEND Urology
DX: N20.0 Calculus of kidney (principal)
CPT/HCPCS: 74018

== ENCOUNTER → 2019-10-18 | Outpatient (CLI) | payer OTHER ==
--- NOTE | 2019-10-18 13:00 | Diagnostic Imaging Report ---
INDICATION: Routine screening. COMPARISON: 05/02/2018 and 03/09/2017. TECHNIQUE: 2D and 3D bilateral screening mammography was performed with CAD. FINDINGS: Scattered fibroglandular densities are identified bilaterally. The parenchymal pattern appears stable. No mass or malignant appearing microcalcifications are seen. The axillae are unremarkable. IMPRESSION: No mammographic features suspicious for malignancy are identified. ACR BI-RADS Category 1: Negative. Result letter will be mailed to the patient. Note: At least 10% of breast cancer is not imaged by mammography. Dictated by: Dictated on workstation # [id number]
== END ==
LOC: RAD 10:18
PROVIDERS: ATTEND Internal Medicine
DX: Z12.31 Encounter for screening mammogram for malignant neoplasm of breast (principal)
CPT/HCPCS: 77063; 77067

== ENCOUNTER 2020-05-07 18:40 | Emergency (ER) | payer OTHER ==
[~2020-05-07] VITALS: Ht 162.5 cm; Wt 72.5 kg
[2020-05-07 19:44] LABS: BILIRUBIN,URINE NEGATIVE (NEGATIVE); CLARITY,URINE CLEAR; COLOR,URINE YELLOW; GLUCOSE, URINE (UA) NEGATIVE (NEGATIVE); KETONES,URINE NEGATIVE (NEGATIVE); LEUKOCYTE ESTERASE ,URINE NEGATIVE (NEGATIVE); NITRITE,URINE NEGATIVE (NEGATIVE); PROTEIN,URINE 1+ (NEGATIVE)
[2020-05-07 19:47] LABS: BASOPHILS # (AUTO) 0.1 10^3/uL (0.0-0.1); BASOPHILS % (AUTO) 1 % (0-10); EOSINOPHILS # (AUTO) 0.3 10^3/uL (0.0-0.3); EOSINOPHILS % (AUTO) 3 % (0-10); HEMATOCRIT 40 % (35-52); HEMOGLOBIN 13.4 g/dL (11.5-16.0); LYMPHOCYTES # (AUTO) 2.6 10^3/uL (1.0-4.0); LYMPHOCYTES % (AUTO) 27 % (12-44); MEAN CORPUSCULAR HEMOGLOBIN 30 pg (25-34); MEAN CORPUSCULAR HGB CONC 34 g/dL (32-36); MEAN CORPUSCULAR VOLUME 90 fL (80-99); MEAN PLATELET VOLUME 8.5 fL (9.0-12.2); MONOCYTES # (AUTO) 0.8 10^3/uL (0.0-1.0); MONOCYTES % (AUTO) 8 % (0-12); NEUTROPHILS # (AUTO) 6.1 10^3/uL (1.8-7.8); NEUTROPHILS % (AUTO) 62 % (42-75); PLATELET COUNT 436 10^3/uL (130-400); WHITE BLOOD COUNT 9.9 10^3/uL (4.3-11.0)
[2020-05-07 19:53] LABS: BACTERIA,URINE LARGE /HPF; RBC,URINE 50-100 /HPF
[2020-05-07] MEDS ORDERED: LACTATED RINGERS 1,000 ML IV ONE (20:00)
[2020-05-07 20:06] LABS: ALANINE AMINOTRANSFERASE 7 U/L (0-55); ALBUMIN 4.1 GM/DL (3.2-4.5); ALKALINE PHOSPHATASE 53 U/L (40-136); BILIRUBIN,TOTAL 0.4 MG/DL (0.1-1.0); BUN/CREATININE RATIO 12; CALCIUM 8.9 MG/DL (8.5-10.1); CARBON DIOXIDE 21 MMOL/L (21-32); CHLORIDE 106 MMOL/L (98-107); CREATININE SERUM 0.83 MG/DL (0.60-1.30); GFR ESTIMATED > 60; GLUCOSE 91 MG/DL (70-105); POTASSIUM 3.6 MMOL/L (3.6-5.0); SODIUM 139 MMOL/L (135-145); TOTAL PROTEIN 7.3 GM/DL (6.4-8.2)
[2020-05-07] MEDS ORDERED: fentaNYL INJECTION 100 MCG/2 ML AMP IVP ONE (20:15)
--- NOTE | 2020-05-07 20:30 | ED Back Pain ---
General Chief Complaint: Back Problems Stated Complaint: R SIDE FLANK PAIN Source of Information: Patient (NEHEMIAS ROYAL) History of Present Illness Date Seen by Provider: May 07, 2020 Time Seen by Provider: 20:15 Initial Comments Meseret presents to the ER with 8/10 right sided RLQ abdominal pain since Wednesday afternoon that radiates to her back. She tried aspirin for pain relieve, which has helped. Tylenol did not help. She denies anything that has made it worse. Denies knowledge of inciting factors. She describes the pain initially as sharp but has become dull in nature. Associated N/V with one episode of emesis this morning and SOB with pain. Denies the following: dysuria, increased urinary frequency, incomplete bladder emptying, constipation, blood in stool, F/C and chest pain at this time. PMH is pertinent for kidney stones, melanoma, gallbladder stones, UTIs, depression, HTN, GERD, Allergies. Last stone was left sided and 2 years ago, which required surgical management. LMP: patient is currently menstruating. Follows with Dr. Valade[facility], and Dr. Paredes for hx of kidney stones. Timing/Duration: 1/2 Hour Severity: Mild Pain/Injury Location: Abdomen, Back Radiation: Buttocks, Other (right flank) Associated Symptoms: lower back pain (NEHEMIAS ROYAL) Allergies and Home Medications Allergies Coded Allergies: No Known Drug Allergies (Unverified , 06/21/19) Home Medications Benazepril HCl 20 Mg Tablet, 20 MG PO DAILY, (Reported) Cetirizine HCl 10 Mg Tablet, 10 MG PO DAILY, (Reported) Famotidine 20 Mg Tablet, 20 MG PO DAILY Increase to twice daily morning and evening Prescribed by: MAXINE VALADEZ on 07/29/18 1038 Hydrocodone/Acetaminophen 1 Each Tablet, 1-2 TAB PO Q4H Prescribed by: SCHUYLER DAVE on 06/22/19 0850 Hydrocodone/Acetaminophen 1 Each Tablet, 1-2 TAB PO Q4H PRN for PAIN-MODERATE (5-7) Prescribed by: PEGGY العراقي on 05/07/202223 Nitrofurantoin Monohyd/M-Cryst 100 Mg Capsule, 1 TAB PO BID Prescribed by: PEGGY العراقي on 05/07/202222 Ondansetron 4 Mg Tab.rapdis, 4 MG SL Q4H PRN for NAUSEA/VOMITING Prescribed by: PEGGY العراقي on 05/07/202222 Tamsulosin HCl 0.4 Mg Cap, 0.4 MG PO DAILY Prescribed by: PEGGY العراقي on 05/07/202222 Venlafaxine HCl 150 Mg Cap.er.24h, 150 MG PO DAILY, (Reported) Patient Home Medication List Home Medication List Reviewed: Yes (PEGGY CASTRO MD) Review of Systems Constitutional: no symptoms reported EENTM: no symptoms reported Respiratory: see HPI Cardiovascular: see HPI Gastrointestinal: see HPI Genitourinary: see HPI Musculoskeletal: no symptoms reported Skin: no symptoms reported Psychiatric/Neurological: See HPI (NEHEMIAS ROYAL) Past Ztxkwxz-Msliho-Ymmrhk Hx Patient Social History Type Used: Cigarettes Former Smoker, Quit: Jun 24, 1999 2nd Hand Smoke Exposure: Yes Recent Hopitalizations: No (NEHEMIAS ROYAL) Immunizations Up To Date Tetanus Booster (TDap): Less than 5yrs PED Vaccines UTD: Yes (NEHEMIAS ROYAL MED JAMIL) Seasonal Allergies Seasonal Allergies: No (NEHEMIAS ROYAL MED JAMIL) Past Medical History Surgeries: Yes (melanoma removed from stomach, kidney stone;EGD, WISDOM TEETH, carap tunnel) Orthopedic, Renal Respiratory: No Cardiac: Yes Hypertension Neurological: Yes Headaches /Migraines Reproductive Disorders: No Female Reproductive Disorders: Denies Sexually Transmitted Disease: No Genitourinary: Yes Kidney Stones Gastrointestinal: Yes Gastroesophageal Reflux, Gall Bladder Disease Musculoskeletal: Yes Chronic Back Pain Endocrine: No HEENT: No Loss of Vision: Denies Hearing Impairment: Denies Cancer: Yes Melanoma Did You Recieve Any Treatments: Yes What Type of Treatment Did You: Surgical Intervention Psychosocial: Yes Depression Integumentary: No Blood Disorders: No Adverse Reaction/Blood Tranf: No (N/A) (NEHEMIAS ROYAL) Physical Exam Vital Signs Vital Signs - First Documented 05/07/20 19:20 Temp 36.5 Pulse 122 Resp 18 B/P (MAP) 152/101 (118) Pulse Ox 98 O2 Delivery Room Air (PEGGY CASTRO MD) Vital Signs Capillary Refill : ([employer]) Height, Weight, BMI Height: 5'4.00" Weight: 190lbs. 0.0oz. 86.150169tn; 28.22 BMI Method:Stated General Appearance: No Apparent Distress HEENT: PERRL/EOMI Neck: Full Range of Motion, Non Tender Cardiovascular: No Edema, Normal Peripheral Pulses, Tachycardia Respiratory: Chest Non Tender, Lungs Clear, No Accessory Muscle Use, No Respiratory Distress Peripheral Pulses: 2+ Dorsalis Pedis (R), 2+ Left Dors-Pedis (L), 2+ Radial Pulses (R), 2+ Radial Pulses (L) Gastrointestinal: Normal Bowel Sounds, Soft, Tenderness (RLQ) Back: Normal Inspection, No CVA Tenderness, No Vertebral Tenderness Extremity: Normal Capillary Refill, No Calf Tenderness Neurologic/Psychiatric: Alert, Oriented x3, Normal Mood/Affect Skin: Normal Color, Warm/Dry Lymphatic: No Adenopathy + Mcburney point, - for rosving, - psoas sign, - Lloyds punch BL. Abdominal tenderness RLQ upon palpation, non-distended and no rebound ([employer]) Progress/Results/Core Measures Results/Orders Lab Results Laboratory Tests Test 05/07/20 19:26 05/07/20 19:34 Range/Units Urine Color YELLOW Urine Clarity CLEAR Urine pH 6.0 5-9 Urine Specific [place] >=1.030 1.016-1.022 Urine Protein 1+ H NEGATIVE Urine Glucose (UA) NEGATIVE NEGATIVE Urine Ketones NEGATIVE NEGATIVE Urine Nitrite NEGATIVE NEGATIVE Urine Bilirubin NEGATIVE NEGATIVE Urine Urobilinogen 0.2 < = 1.0 MG/DL Urine Leukocyte Esterase NEGATIVE NEGATIVE Urine RBC (Auto) 3+ H NEGATIVE Urine RBC 50-100 H /HPF Urine WBC 10-25 H /HPF Urine Squamous Epithelial Cells 10-25 H /HPF Urine Crystals NONE /LPF Urine Bacteria LARGE H /HPF Urine Casts NONE /LPF Urine Mucus NEGATIVE /LPF Urine Culture Indicated YES White Blood Count 9.9 4.3-11.0 10^3/uL Red Blood Count 4.44 3.80-5.11 10^6/uL Hemoglobin 13.4 11.5-16.0 g/dL Hematocrit 40 35-52 % Mean Corpuscular Volume 90 80-99 fL Mean Corpuscular Hemoglobin 30 25-34 pg Mean Corpuscular Hemoglobin Concent 34 32-36 g/dL Red Cell Distribution Width 11.9 10.0-14.5 % Platelet Count 436 H 130-400 10^3/uL Mean Platelet Volume 8.5 L 9.0-12.2 fL Immature Granulocyte % (Auto) 0 % Neutrophils (%) (Auto) 62 42-75 % Lymphocytes (%) (Auto) 27 12-44 % Monocytes (%) (Auto) 8 0-12 % Eosinophils (%) (Auto) 3 0-10 % Basophils (%) (Auto) 1 0-10 % Neutrophils # (Auto) 6.1 1.8-7.8 10^3/uL Lymphocytes # (Auto) 2.6 1.0-4.0 10^3/uL Monocytes # (Auto) 0.8 0.0-1.0 10^3/uL Eosinophils # (Auto) 0.3 0.0-0.3 10^3/uL Basophils # (Auto) 0.1 0.0-0.1 10^3/uL Immature Granulocyte # (Auto) 0.0 0.0-0.1 10^3/uL Sodium Level 139 135-145 MMOL/L Potassium Level 3.6 3.6-5.0 MMOL/L Chloride Level 106 98-107 MMOL/L Carbon Dioxide Level 21 21-32 MMOL/L Anion Gap 12 5-14 MMOL/L Blood Urea Nitrogen 10 7-18 MG/DL Creatinine 0.83 0.60-1.30 MG/DL Estimat Glomerular Filtration Rate > 60 BUN/Creatinine Ratio 12 Glucose Level 91 70-105 MG/DL Calcium Level 8.9 8.5-10.1 MG/DL Corrected Calcium 8.8 8.5-10.1 MG/DL Total Bilirubin 0.4 0.1-1.0 MG/DL Aspartate Amino Transf (AST/SGOT) 15 5-34 U/L Alanine Aminotransferase (ALT/SGPT) 7 0-55 U/L Alkaline Phosphatase 53 40-136 U/L C-Reactive Protein High Sensitivity 0.13 0.00-0.50 MG/DL Total Protein 7.3 6.4-8.2 GM/DL Albumin 4.1 3.2-4.5 GM/DL Serum Test, Qualitative NEGATIVE NEGATIVE (PEGGY CASTRO MD) My Orders Orders - PEGGY CASTRO MD Ua Culture If Indicated (05/07/20 18:47) Cbc With Automated Diff (05/07/20 19:42) Comprehensive Metabolic Panel (05/07/20 19:42) Hs C Reactive Protein (05/07/20 19:42) Hcg,Qualitative Serum (05/07/20 19:42) Ed Iv/Invasive Line Start (05/07/20 19:42) Lactated Ringers (Lr 1000 Ml Iv Solution (05/07/20 20:00) Urine Culture (05/07/20 19:26) Fentanyl Injection (Sublimaze Injection (05/07/20 20:15) Ct Abdomen/Pelvis Wo (05/07/20 20:15) Abdomen/Kub 1view (05/07/20 21:22) Tamsulosin Capsule (Flomax Capsule) (05/07/20 21:30) Ketorolac Injection (Toradol Injection) (05/07/20 21:45) Ceftriaxone For Iv Use (Rocephin For I (05/07/20 21:45) (PEGGY CASTRO MD) Medications Given in ED Current Medications Medications Dose Ordered Sig/Toya Route Start Time Stop Time Status Last Admin Dose Admin Ceftriaxone Sodium 1000 mg/ Sterile Water 10 ml @ 200 mls/hr ONCE ONCE IV 05/07/20 21:45 05/07/20 21:47 DC 05/07/20 21:54 200 MLS/HR Fentanyl Citrate 50 mcg ONCE ONCE IVP 05/07/20 20:15 05/07/20 20:16 DC 05/07/20 20:19 50 MCG Ketorolac Tromethamine 30 mg ONCE ONCE IVP 05/07/20 21:45 05/07/20 21:46 DC 05/07/20 21:47 30 MG Lactated Ringer's 1,000 ml @ 0 mls/hr Q0M ONCE IV 05/07/20 20:00 05/07/20 20:01 DC 05/07/20 20:10 1,000 MLS/HR Tamsulosin HCl 0.4 mg ONCE ONCE PO 05/07/20 21:30 05/07/20 21:31 DC 05/07/20 21:46 0.4 MG (PEGGY CASTRO MD) Vital Signs/I&O 05/07/20 05/07/20 19:20 22:20 Temp 36.5 Pulse 122 104 Resp 18 18 B/P (MAP) 152/101 (118) 116/82 Pulse Ox 98 99 O2 Delivery Room Air 05/08/20 00:00 Intake Total 1000 ml Balance 1000 ml (PEGGY CASTRO MD) Progress Progress Note : Time: 20:15 Progress Note Ordered CBC with diff, CMP, UA. Pain mangement. Discussed the risks, benefits and alternatives of obtaining non-con CT to rule out surgical pathology. Patient shows understanding and would like to proceed with plan. Labs and imaging will dictate further management (NEHEMIAS ROYAL) Progress Note : Progress Note Patient was seen and examined by me personally. She was treated with IV fluids and Toradol. CT scan was obtained demonstrating a right UPJ stone. There was also suggestion of pyuria on urinalysis. Patient was treated with Rocephin. I discussed the case with Dr. Almanza who recommended pain control and Flomax with follow-up by phone call to the clinic tomorrow. (PEGGY CASTRO MD) Diagnostic Imaging Diagonstic Imaging: CT Plain Films/CT/US/NM/MRI: abdomen, pelvis Comments CT abdomen and pelvis viewed by me and report reviewed. See report below: NAME: MESERET HENDERSON [facility] REC#: [id number] PT STATUS: REG ER : 1970 PHYSICIAN: PEGGY CASTRO MD ADMIT DATE: 05/07/20/ER Signed Date of Exam:05/07/20 CT ABDOMEN/PELVIS WO PROCEDURE: CT abdomen and pelvis without contrast. TECHNIQUE: Multiple contiguous axial images were obtained through the abdomen and pelvis without the use of intravenous contrast. Auto Exposure Controls were utilized during the CT exam to meet ALARA standards for radiation dose reduction. INDICATION: Right flank pain COMPARISON: 06/10/2019 FINDINGS: There is moderate right-sided hydronephrosis secondary to an obstructive 5 mm stone in the right UPJ. Small cyst is seen in the inferior pole of the right kidney. Nonobstructive stone is seen in the lower pole of the left kidney. The gallbladder is surgically absent. The remainder of the solid organs, the vascular structures and bowel are unremarkable. The uterus is intact. The urinary bladder is unremarkable. There is no free air or free fluid. Osseous structures are stable. IMPRESSION: 1. Right-sided hydronephrosis secondary to an obstructive 5 mm stone in the right UPJ. Dictated by: Dictated on workstation # [id number] Dict: 05/07/202046 Trans: 05/07/202113 [facility] [id number] Interpreted by: JG HAMILTON Electronically signed by: JG HAMILTON 05/07/202113 Diagonstic Imaging: Xray Plain Films/CT/US/NM/MRI: abdomen, pelvis Comments NAME: MESERET HENDERSON MED REC#: [id number] PT STATUS: REG ER : 1970 PHYSICIAN: PEGGY CASTRO MD ADMIT DATE: 05/07/20/ER Signed Date of Exam:05/07/20 ABDOMEN/KUB 1VIEW INDICATION: Abdominal pain COMPARISON: 09/28/2019 FINDINGS: Single view of the abdomen demonstrates mild constipation without obstruction, ileus or free air. Osseous structures are normal. Cholecystectomy clips are present. There are no abnormal calculi. IMPRESSION: Mild constipation. Dictated by: Dictated on workstation # [id number] Dict: 05/07/202146 Trans: 05/07/202156 [facility] [id number] Interpreted by: JG HAMILTON Electronically signed by: JG HAMILTON 05/07/202156 (PEGGY CASTRO MD) Departure Impression Primary Impression: Right ureteral stone Additional Impression: Nausea and vomiting Qualified Codes: R11.2 - Nausea with vomiting, unspecified Disposition: 01 HOME, SELF-CARE Condition: Improved Departure-Patient Inst. Decision time for Depature: 22:00 (PEGGY CASTRO MD) Referrals: MAXINE VALADEZ MD (PCP/Family) Primary Care Physician Patient Instructions: Kidney Stone, Adult ED Add. Discharge Instructions: Start your antibiotics and Flomax in the morning. Use hydrocodone as prescribed for pain. You may wish to use a stool softener with hydrocodone to prevent constipation. To get you through until you can fruit picker your pain medication, you may take a combination of Tylenol (acetaminophen) up to 1000 mg every 6 hours and ibuprofen up to 600 mg every 6 hours as needed. You may use Zofran (ondansetron) as prescribed for nausea and vomiting. Contact Dr. Paredes's office in the morning for follow-up instructions and to schedule an appointment. Return to the emergency room if you have worsening symptoms including intractable pain, nausea and vomiting, fevers over 100 degrees, or other concerning symptoms. Call with questions or concerns. All discharge instructions reviewed with patient and/or family. Voiced understanding. Scripts Hydrocodone/Acetaminophen (Hydrocodone-Acetamin 5-325 mg) 1 Each Tablet 1-2 TAB PO Q4H PRN for PAIN-MODERATE (5-7), #10 TAB Prov: PEGGY CASTRO MD 05/07/20 Ondansetron (Ondansetron Odt) 4 Mg Tab.rapdis 4 MG SL Q4H PRN for NAUSEA/VOMITING, #10 TAB Prov: PEGGY CASTRO MD 05/07/20 Tamsulosin HCl (Flomax) 0.4 Mg Cap 0.4 MG PO DAILY, #30 CAP Prov: PEGGY CASTRO MD 05/07/20 Nitrofurantoin Monohyd/M-Cryst (Macrobid 100 mg Capsule) 100 Mg Capsule 1 TAB PO BID, #14 CAP Prov: PEGGY CASTRO MD 05/07/20 Medical Student Attestation and Attending Note: I have personally interviewed and examined this patient along with Nehemias Royal, MS 4. I have reviewed student documentation including history, physical, and assessments. I agree with the documentation except where otherwise noted. Exam: General: Alert, oriented, mild distress, well developed HEENT: Normocephalic and atraumatic Heart: Regular rate and rhythm without murmur Lungs: Clear to auscultation bilaterally with normal effort Abdomen: Soft, tenderness in the right lower quadrant without rebound or Rovsing's, normal bowel sounds Neuropsych: Alert, oriented, no focal deficits Skin: Warm and dry without rashes (PEGGY CASTRO MD) Copy Copies To 1: YONG BACH MD Copies To 2: MAX[facility]Z MD, [facility], [facility] 20:30 PEGGY CASTRO MD May 07, 2020 22:06
--- NOTE | 2020-05-07 21:04 | Diagnostic Imaging Report ---
PROCEDURE: CT abdomen and pelvis without contrast. TECHNIQUE: Multiple contiguous axial images were obtained through the abdomen and pelvis without the use of intravenous contrast. Auto Exposure Controls were utilized during the CT exam to meet ALARA standards for radiation dose reduction. INDICATION: Right flank pain COMPARISON: 06/10/2019 FINDINGS: There is moderate right-sided hydronephrosis secondary to an obstructive 5 mm stone in the right UPJ. Small cyst is seen in the inferior pole of the right kidney. Nonobstructive stone is seen in the lower pole of the left kidney. The gallbladder is surgically absent. The remainder of the solid organs, the vascular structures and bowel are unremarkable. The uterus is intact. The urinary bladder is unremarkable. There is no free air or free fluid. Osseous structures are stable. IMPRESSION: 1. Right-sided hydronephrosis secondary to an obstructive 5 mm stone in the right UPJ. Dictated by: Dictated on workstation # [id number]
[2020-05-07] MEDS ORDERED: TAMSULOSIN 0.4 MG (FLOMAX) CAP PO ONE (21:30)
[2020-05-07] MEDS ORDERED: KETOROLAC 30 MG/ML VIAL IVP ONE (21:45)
[2020-05-07] MEDS ORDERED: cefTRIAXone FOR IV USE 1,000 MG in WATER (STERILE) FOR INJECTION 10 ML IV ONE (21:45)
--- NOTE | 2020-05-07 21:55 | Diagnostic Imaging Report ---
INDICATION: Abdominal pain COMPARISON: 09/28/2019 FINDINGS: Single view of the abdomen demonstrates mild constipation without obstruction, ileus or free air. Osseous structures are normal. Cholecystectomy clips are present. There are no abnormal calculi. IMPRESSION: Mild constipation. Dictated by: Dictated on workstation # [id number]
[2020-05-07] MEDS ORDERED: NITR-65 PO ×2 (22:04→22:23)
[2020-05-07] MEDS ORDERED: TMSL.4C PO ×2 (22:04→22:23)
[2020-05-07] MEDS ORDERED: ONDA4TAB11 SL ×2 (22:04→22:23)
[2020-05-07] MEDS ORDERED: ACHD5005 PO ×2 (22:04→22:23)
[2020-05-07 22:20] VITALS: BP 116/82
[2020-05-08] MEDS ORDERED: OXYC1TAB87 PO (19:15)
[2020-05-09] MEDS ORDERED: MAGN100T5 PO (09:44)
== END 2020-05-07 22:20 | disposition home or self-care (01) ==
LOC: EDUNIT# 18:40 → ER 18:41
DX: N13.2 Hydronephrosis with renal and ureteral calculous obstruction (principal); I10 Essential (primary) hypertension; F32.9 Major depressive disorder, single episode, unspecified; K21.9 Gastro-esophageal reflux disease without esophagitis; G89.29 Other chronic pain; M54.9 Dorsalgia, unspecified; Z87.891 Personal history of nicotine dependence; Z85.820 Personal history of malignant melanoma of skin; Z79.891 Long term (current) use of opiate analgesic
CPT/HCPCS: 36415; 74018; 74176; 80053; 81000; 84703; 85025; 86141; 87077; 87088

== ENCOUNTER 2020-05-08 17:15 | Emergency (ER) | payer OTHER ==
[~2020-05-08] VITALS: Ht 162 cm; Wt 72.5 kg
[~2020-05-08 17:15] MED LIST changes: -MAGN100T5 PO; -OXYC1TAB87 PO
[2020-05-08] MEDS ORDERED: fentaNYL INJECTION 100 MCG/2 ML AMP ONE (17:26)
[2020-05-08] MEDS ORDERED: NS IV 1000 ML 1,000 ML ONE (17:26)
[2020-05-08] MEDS ORDERED: ONDANSETRON 4 MG/2 ML (SDV) Z0FRAN ONE (17:26)
[2020-05-08] MEDS ORDERED: ONDANSETRON 4 MG/2 ML (SDV) Z0FRAN IVP ONE (17:30)
[2020-05-08] MEDS ORDERED: fentaNYL INJECTION 100 MCG/2 ML AMP IVP ONE (17:30)
[2020-05-08] MEDS ORDERED: NS IV 1000 ML 1,000 ML IV SCH (17:30)
[2020-05-08 17:34] LABS: BASOPHILS # (AUTO) 0.1 10^3/uL (0.0-0.1); BASOPHILS % (AUTO) 0 % (0-10); EOSINOPHILS # (AUTO) 0.1 10^3/uL (0.0-0.3); EOSINOPHILS % (AUTO) 1 % (0-10); HEMATOCRIT 37 % (35-52); HEMOGLOBIN 12.2 g/dL (11.5-16.0); LYMPHOCYTES # (AUTO) 1.1 10^3/uL (1.0-4.0); LYMPHOCYTES % (AUTO) 8 % (12-44); MEAN CORPUSCULAR HEMOGLOBIN 30 pg (25-34); MEAN CORPUSCULAR HGB CONC 33 g/dL (32-36); MEAN CORPUSCULAR VOLUME 91 fL (80-99); MEAN PLATELET VOLUME 8.5 fL (9.0-12.2); MONOCYTES % (AUTO) 7 % (0-12); NEUTROPHILS # (AUTO) 11.4 10^3/uL (1.8-7.8); NEUTROPHILS % (AUTO) 84 % (42-75); PLATELET COUNT 380 10^3/uL (130-400); WHITE BLOOD COUNT 13.6 10^3/uL (4.3-11.0)
--- NOTE | 2020-05-08 17:36 | ED GU-Female ---
General Stated Complaint: DX: KIDNEY STONES / INCREASED PAIN History of Present Illness Date Seen by Provider: May 08, 2020 Time Seen by Provider: 17:20 Initial Comments 49-year-old female with known kidney stone on the right was seen here last evening and referred to Dr. Bach. She had a follow-up KUB that shows migration of the stone. at L2 yesterday, now at L4. She reports increased right flank and lower abdominal pain with nausea. The pain is not controlled with the hydrocodone she has at home, last dose at 1600. She has not taken any of the Zofran. Timing/Duration: getting worse Severity/Quality: severe Location: RLQ, right flank Radiation: none Associated Symptoms: abdominal pain, lower back pain, nausea/vomiting Allergies and Home Medications Allergies Coded Allergies: No Known Drug Allergies (Unverified , 06/21/19) Home Medications Benazepril HCl 20 Mg Tablet, 20 MG PO DAILY, (Reported) Cetirizine HCl 10 Mg Tablet, 10 MG PO DAILY, (Reported) Famotidine 20 Mg Tablet, 20 MG PO DAILY Increase to twice daily morning and evening Prescribed by: MAXINE VELARDE on 07/29/18 1038 Hydrocodone/Acetaminophen 1 Each Tablet, 1-2 TAB PO Q4H Prescribed by: SCHUYLER DAVE on 06/22/19 0850 Hydrocodone/Acetaminophen 1 Each Tablet, 1-2 TAB PO Q4H PRN for PAIN-MODERATE (5-7) Prescribed by: PEGGY العراقي on 05/07/202223 Nitrofurantoin Monohyd/M-Cryst 100 Mg Capsule, 1 TAB PO BID Prescribed by: PEGGY العراقي on 05/07/202222 Ondansetron 4 Mg Tab.rapdis, 4 MG SL Q4H PRN for NAUSEA/VOMITING Prescribed by: PEGGY العراقي on 05/07/202222 Oxycodone HCl/Acetaminophen 1 Each Tablet, 1 TAB PO Q6H PRN for PAIN-MODERATE (5-7) Prescribed by: LISA CHACON on 05/08/201915 Tamsulosin HCl 0.4 Mg Cap, 0.4 MG PO DAILY Prescribed by: PEGGY العراقي on 05/07/202222 Venlafaxine HCl 150 Mg Cap.er.24h, 150 MG PO DAILY, (Reported) Patient Home Medication List Home Medication List Reviewed: Yes Review of Systems Review of Systems Constitutional: no symptoms reported, see HPI Genitourinary: see HPI, dysuria, flank pain All Other Systemes Reviewed Negative Unless Noted: Yes Past Smekwet-Rrcntv-Flomwa Hx Past Med/Social Hx: Reviewed Nursing Past Med/Soc Hx Patient Social History Type Used: Cigarettes Former Smoker, Quit: Jun 24, 1999 2nd Hand Smoke Exposure: Yes Recent Hopitalizations: No Immunizations Up To Date Tetanus Booster (TDap): Less than 5yrs PED Vaccines UTD: Yes Seasonal Allergies Seasonal Allergies: No Past Medical History Surgeries: Yes (melanoma removed from stomach, kidney stone;EGD, WISDOM TEETH, carap tunnel) Orthopedic, Renal Respiratory: No Cardiac: Yes Hypertension Neurological: Yes Headaches /Migraines Reproductive Disorders: No Female Reproductive Disorders: Denies Sexually Transmitted Disease: No Genitourinary: Yes Kidney Stones Gastrointestinal: Yes Gastroesophageal Reflux, Gall Bladder Disease Musculoskeletal: Yes Chronic Back Pain Endocrine: No HEENT: No Loss of Vision: Denies Hearing Impairment: Denies Cancer: Yes Melanoma Did You Recieve Any Treatments: Yes What Type of Treatment Did You: Surgical Intervention Psychosocial: Yes Depression Integumentary: No Blood Disorders: No Adverse Reaction/Blood Tranf: No (N/A) Physical Exam Vital Signs Vital Signs - First Documented 05/08/20 05/08/20 17:39 19:31 Temp 36.6 Pulse 95 Resp 18 B/P (MAP) 124/79 (94) Pulse Ox 99 O2 Delivery Room Air Capillary Refill : Height, Weight, BMI Height: 5'4.00" Weight: 190lbs. 0.0oz. 86.654380fm; 27.00 BMI Method:Stated General Appearance: WD/WN, mild distress Cardiovascular: normal peripheral pulses, regular rate, rhythm Respiratory: chest non-tender, lungs clear, normal breath sounds Gastrointestinal: normal bowel sounds, soft; No distended, No guarding, No rebound; tenderness (RLQ) Neurologic/Psychiatric: no motor/sensory deficits, alert, normal mood/affect, oriented x 3 Skin: normal color, warm/dry Progress/Results/Core Measures Suspected Sepsis SIRS Temperature: Pulse: Respiratory Rate: Laboratory Tests 05/08/20 17:29: White Blood Count 13.6H Blood Pressure / Mean: Laboratory Tests 05/08/20 17:29: Creatinine 0.96, Platelet Count 380, Total Bilirubin 0.8 Results/Orders Lab Results Laboratory Tests Test 05/08/20 17:29 05/08/20 18:43 Range/Units White Blood Count 13.6 H 4.3-11.0 10^3/uL Red Blood Count 4.02 3.80-5.11 10^6/uL Hemoglobin 12.2 11.5-16.0 g/dL Hematocrit 37 35-52 % Mean Corpuscular Volume 91 80-99 fL Mean Corpuscular Hemoglobin 30 25-34 pg Mean Corpuscular Hemoglobin Concent 33 32-36 g/dL Red Cell Distribution Width 11.9 10.0-14.5 % Platelet Count 380 130-400 10^3/uL Mean Platelet Volume 8.5 L 9.0-12.2 fL Immature Granulocyte % (Auto) 0 % Neutrophils (%) (Auto) 84 H 42-75 % Lymphocytes (%) (Auto) 8 L 12-44 % Monocytes (%) (Auto) 7 0-12 % Eosinophils (%) (Auto) 1 0-10 % Basophils (%) (Auto) 0 0-10 % Neutrophils # (Auto) 11.4 H 1.8-7.8 10^3/uL Lymphocytes # (Auto) 1.1 1.0-4.0 10^3/uL Monocytes # (Auto) 1.0 0.0-1.0 10^3/uL Eosinophils # (Auto) 0.1 0.0-0.3 10^3/uL Basophils # (Auto) 0.1 0.0-0.1 10^3/uL Immature Granulocyte # (Auto) 0.0 0.0-0.1 10^3/uL Neutrophils % (Manual) 86 % Lymphocytes % (Manual) 7 % Monocytes % (Manual) 4 % Eosinophils % (Manual) 3 % Blood Morphology Comment NORMAL Sodium Level 137 135-145 MMOL/L Potassium Level 4.0 3.6-5.0 MMOL/L Chloride Level 105 98-107 MMOL/L Carbon Dioxide Level 22 21-32 MMOL/L Anion Gap 10 5-14 MMOL/L Blood Urea Nitrogen 15 7-18 MG/DL Creatinine 0.96 0.60-1.30 MG/DL Estimat Glomerular Filtration Rate > 60 BUN/Creatinine Ratio 16 Glucose Level 116 H 70-105 MG/DL Calcium Level 8.5 8.5-10.1 MG/DL Corrected Calcium 8.6 8.5-10.1 MG/DL Total Bilirubin 0.8 0.1-1.0 MG/DL Aspartate Amino Transf (AST/SGOT) 15 5-34 U/L Alanine Aminotransferase (ALT/SGPT) 10 0-55 U/L Alkaline Phosphatase 49 40-136 U/L Total Protein 6.9 6.4-8.2 GM/DL Albumin 3.9 3.2-4.5 GM/DL Urine Color YELLOW Urine Clarity CLEAR Urine pH 6.0 5-9 Urine Specific [place] 1.025 H 1.016-1.022 Urine Protein TRACE H NEGATIVE Urine Glucose (UA) NEGATIVE NEGATIVE Urine Ketones 1+ H NEGATIVE Urine Nitrite NEGATIVE NEGATIVE Urine Bilirubin NEGATIVE NEGATIVE Urine Urobilinogen 0.2 < = 1.0 MG/DL Urine Leukocyte Esterase TRACE H NEGATIVE Urine RBC (Auto) 3+ H NEGATIVE Urine RBC 50-100 H /HPF Urine WBC 50-100 H /HPF Urine Squamous Epithelial Cells NONE /HPF Urine Crystals NONE /LPF Urine Bacteria NEGATIVE /HPF Urine Casts NONE /LPF Urine Mucus SMALL H /LPF Urine Culture Indicated NO My Orders Orders - LISA CHACON Ua Culture If Indicated (05/08/20 17:20) Cbc With Automated Diff (05/08/20 17:29) Comprehensive Metabolic Panel (05/08/20 17:29) Ed Iv/Invasive Line Start (05/08/20 17:29) Ns Iv 1000 Ml (Sodium Chloride 0.9%) (05/08/20 17:30) Ondansetron Injection (Zofran Injectio (05/08/20 17:30) Fentanyl Injection (Sublimaze Injection (05/08/20 17:30) Fentanyl Injection (Sublimaze Injection (05/08/20 17:26) Ns Iv 1000 Ml (Sodium Chloride 0.9%) (05/08/20 17:26) Ondansetron Injection (Zofran Injectio (05/08/20 17:26) Manual Differential (05/08/20 17:29) Ketorolac Injection (Toradol Injection) (05/08/20 18:59) Rx-Oxycodone/Apap 5-325 Mg (Rx-Percocet (05/08/20 19:15) Ceftriaxone For Im Use (Rocephin For Im (05/08/20 19:45) Lidocaine 1% Inj 20 Ml (Xylocaine 1% Inj (05/08/20 19:45) Medications Given in ED Current Medications Medications Dose Ordered Sig/Toya Route Start Time Stop Time Status Last Admin Dose Admin Fentanyl Citrate 50 mcg ONCE ONCE IVP 05/08/20 17:30 05/08/20 17:31 DC 05/08/20 17:35 50 MCG Ondansetron HCl 8 mg ONCE ONCE IVP 05/08/20 17:30 05/08/20 17:31 DC 05/08/20 17:35 8 MG Oxycodone/ Acetaminophen 1 ea Q6H PRN PO 05/08/20 19:15 05/08/20 19:38 DC 05/08/20 19:23 1 EA Vital Signs/I&O 05/08/20 05/08/20 17:39 19:31 Temp 36.6 36.8 Pulse 95 88 Resp 18 18 B/P (MAP) 124/79 (94) 133/62 Pulse Ox 99 98 O2 Delivery Room Air Capillary Refill : Progress Note : Time: 17:20 Progress Note Patient seen and evaluated. Will give fentanyl 50 mcg IV, normal saline 1 L and Zofran 8 mg. Reviewed previous x-ray from this afternoon. 1809 Patient reports improvement in her symptoms. Awaiting urine. X-ray results reviewed with the patient. Reviewed urine culture from last night's visit, normal sonny 1845 UA obtained. Patient continuing to have improvement. No requests at this time. [address] Bach, will give Rocephin 1 gm IM. Then discharge to home. Take Home Pack of Percocet for pain not controlled with current plan. Departure Impression Primary Impression: Right ureteral stone Disposition: HOME, SELF-CARE Condition: Improved Departure-Patient Inst. Decision time for Depature: 19:00 Referrals: MAXINE VELARDE MD (PCP/Family) Primary Care Physician Patient Instructions: Kidney Stones (DC) Add. Discharge Instructions: Continue to take the antibiotics and medications prescribed yesterday while in the emergency department Make sure you are taking ibuprofen 600 mg every 8 hours. Follow-up with Dr. Paredes if symptoms are not improving or worsen. Return to the emergency department for new, urgent healthcare needs. Increase water intake 16 ounces every 2 hours while awake. Scripts Oxycodone HCl/Acetaminophen (Percocet 5-325 mg Tablet) 1 Each Tablet 1 TAB PO Q6H PRN for PAIN-MODERATE (5-7) MDD 6 TABS, #20 TAB 0 Refills Prov: LISA CHACON 05/08/20 Copy Copies To 1: YONG BACH MD, AMY ARNP May 08, 2020 17:36
[2020-05-08 17:43] LABS: ALBUMIN 3.9 GM/DL (3.2-4.5); CHLORIDE 105 MMOL/L (98-107); SODIUM 137 MMOL/L (135-145)
[2020-05-08 17:45] LABS: CALCIUM 8.5 MG/DL (8.5-10.1)
[2020-05-08 17:46] LABS: GLUCOSE 116 MG/DL (70-105); TOTAL PROTEIN 6.9 GM/DL (6.4-8.2)
[2020-05-08 17:47] LABS: CARBON DIOXIDE 22 MMOL/L (21-32)
[2020-05-08 17:48] LABS: BILIRUBIN,TOTAL 0.8 MG/DL (0.1-1.0)
[2020-05-08 17:49] LABS: ALKALINE PHOSPHATASE 49 U/L (40-136); CREATININE SERUM 0.96 MG/DL (0.60-1.30); GFR ESTIMATED > 60
[2020-05-08 17:50] LABS: BUN/CREATININE RATIO 16
[2020-05-08 17:52] LABS: ALANINE AMINOTRANSFERASE 10 U/L (0-55)
[2020-05-08 17:58] LABS: EOSINOPHILS % (MANUAL) 3 %; LYMPHOCYTES % (MANUAL) 7 %; MONOCYTES % (MANUAL) 4 %; NEUTROPHILS % (MANUAL) 86 %; RBC MORPH NORMAL
[2020-05-08 18:52] LABS: BILIRUBIN,URINE NEGATIVE (NEGATIVE); CLARITY,URINE CLEAR; COLOR,URINE YELLOW; GLUCOSE, URINE (UA) NEGATIVE (NEGATIVE); KETONES,URINE 1+ (NEGATIVE); LEUKOCYTE ESTERASE ,URINE TRACE (NEGATIVE); NITRITE,URINE NEGATIVE (NEGATIVE); PROTEIN,URINE TRACE (NEGATIVE)
[2020-05-08] MEDS ORDERED: KETOROLAC 30 MG/ML VIAL IVP STA (18:59)
[2020-05-08 19:01] LABS: BACTERIA,URINE NEGATIVE /HPF; RBC,URINE 50-100 /HPF; WBC,URINE 50-100 /HPF
[2020-05-08] MEDS ORDERED: OXYC1TAB87 PO (19:15)
[2020-05-08] MEDS ORDERED: RX-OXYCODONE/APAP 5-325 MG #4 TAB PK PO PRN (19:15)
[2020-05-08 19:31] VITALS: BP 133/62
[2020-05-08] MEDS ORDERED: LIDOCAINE 1% INJ 20 ML 20 ML VIAL INJ ONE (19:45)
[2020-05-08] MEDS ORDERED: cefTRIAXone 1,000 MG/2.86 ml vial (IM ONLY) IM ONE (19:45)
[2020-05-09] MEDS ORDERED: MAGN100T5 PO (09:44)
== END 2020-05-08 19:30 | disposition home or self-care (01) ==
LOC: EDUNIT# 17:15 → ER 17:17
DX: N13.2 Hydronephrosis with renal and ureteral calculous obstruction (principal); I10 Essential (primary) hypertension; K21.9 Gastro-esophageal reflux disease without esophagitis; F32.9 Major depressive disorder, single episode, unspecified; G89.29 Other chronic pain; M54.9 Dorsalgia, unspecified; Z85.820 Personal history of malignant melanoma of skin; Z87.891 Personal history of nicotine dependence; Z79.891 Long term (current) use of opiate analgesic
CPT/HCPCS: 36415; 80053; 81000; 85007; 85027

== ENCOUNTER → 2020-05-08 | Outpatient (CLI) | payer OTHER ==
[~2020-05-08] MED LIST changes: +MAGN100T5 PO; +ONDA4TAB11 SL; +OXYC1TAB87 PO
--- NOTE | 2020-05-08 16:43 | Diagnostic Imaging Report ---
INDICATION: Right ureteral calculus. COMPARISON: 05/07/2020 FINDINGS: Single frontal radiographic view of the abdomen was obtained and demonstrates subtle extraosseous calcification projecting superior to the right L4 transverse process. This is consistent with interval migration. Calculus was previously identified just inferior to the right L2 transverse process. No unexpected radiopaque foreign bodies are seen. Small bowel loops are nondistended. Moderate colonic air and stool are noted noted. IMPRESSION: 1. Interval distal migration of right ureteral calculus as described above. 2. Moderate colonic air and stool. Dictated by: Dictated on workstation # [id number]
== END ==
LOC: RAD 14:14
PROVIDERS: ATTEND Urology
DX: N20.1 Calculus of ureter (principal)
CPT/HCPCS: 74018

== ENCOUNTER 2020-05-10 05:31 | Outpatient (RCR) | payer OTHER ==
[~2020-05-10] VITALS: Ht 162.6 cm; Wt 72.7 kg
[~2020-05-10 05:31] MED LIST changes: +MAGN100T5 PO; +OXYC1TAB87 PO
== END 2020-05-10 12:28 | disposition home or self-care (01) ==
LOC: PREOP 05:31
PROVIDERS: ATTEND Urology
DX: Z01.812 Encounter for preprocedural laboratory examination (principal); N20.1 Calculus of ureter; Z20.822 Contact with and (suspected) exposure to COVID-19
CPT/HCPCS: 87635

== ENCOUNTER 2020-05-13 05:59 | Day surgery (SDC) | payer OTHER ==
[~2020-05-13] VITALS: Ht 162.6 cm; Wt 72.7 kg
[2020-05-13] VITALS (12 sets, daily range): BP systolic 87–126; BP diastolic 54–85
[2020-05-13] MEDS ORDERED: cefTRIAXone FOR IV USE 1,000 MG in WATER (STERILE) FOR INJECTION 10 ML IV ONE (06:15)
[2020-05-13] MEDS: LACTATED RINGERS 1,000 ML IV PRN ×2 (06:17→10:01)
[2020-05-13] MEDS ORDERED: LIDOCAINE PF 2% 5 ML (XYLOCAINE) VIAL ONE (06:52)
[2020-05-13] MEDS ORDERED: proPOfol 200 MG/20 ML (DIPRIVAN) VIAL IV ONE (06:52)
[2020-05-13] MEDS ORDERED: SEVOFLURANE (ULTANE) 15 ML INHAL SOLN ONE ×4 (06:52→09:24)
[2020-05-13] MEDS ORDERED: ONDANSETRON 4 MG/2 ML (SDV) Z0FRAN ONE (06:52)
[2020-05-13] MEDS ORDERED: ROCURONIUM 10 MG/ML 5 ML SYRINGE IV ONE (06:52)
[2020-05-13] MEDS ORDERED: MIDAZOLAM 2 MG/2 ML (VERSED) VIAL ONE (06:53)
[2020-05-13] MEDS ORDERED: GLYCOPYRROLATE 0.2 MG/ML (ROBINUL) 2 ML VIAL ONE (06:53)
[2020-05-13] MEDS ORDERED: fentaNYL INJECTION 100 MCG/2 ML AMP ONE (06:53)
[2020-05-13] MEDS ORDERED: NEOSTIGMINE 3 MG/3 ML VIAL ONE (06:53)
--- NOTE | 2020-05-13 06:53 | Diagnostic Imaging Report ---
INDICATION: Right ureteral stone COMPARISON: 05/08/2020 Similar to the previous study, there is an approximately 0.3 cm calculus to the right of L4. This is stable in position when compared to previous study. Mild to moderate amount of stool is present. There is no other evidence of acute abnormality. IMPRESSION: Stable appearance of right ureteric calculus at the L4 level. Dictated by: Dictated on workstation # [id number]
[2020-05-13] MEDS ORDERED: ACET-2267 PO (07:12)
--- NOTE | 2020-05-13 07:54 | Progress Note-Pre Operative ---
Pre-Operative Progress Note H&P Reviewed The H&P was reviewed, patient examined and no changes noted. Date Seen by Provider: May 13, 2020 Time Seen by Provider: 07:54 Date H&P Reviewed: May 13, 2020 Time H&P Reviewed: 07:54 Pre-Operative Diagnosis: RT PROXIMAL URETERAL STONE YONG BACH MD May 13, 2020 07:54
--- NOTE | 2020-05-13 07:56 | Progress Note-Post Operative ---
Post-Operative Progess Note Surgeon (s)/Storeroom Clerk (s) Surgeon YONG BACH MD Storeroom Clerk: NONE Pre-Operative Diagnosis RT PROXIMAL URETERAL STONE Post-Operative Diagnosis SAME Procedure & Operative Findings Date of Procedure 05/13/20 Procedure Performed/Findings CYSTOSCOPY, RT URETEROSCOPY, RT URETERAL STONE MANIPULATION AND INSERTION OF RT URETERAL STENT Anesthesia Type GENERAL Estimated Blood Loss Estimated blood loss (mL): NONE Specimens/Packing Specimens Removed NONE Packing: NONE YONG BACH MD May 13, 2020 07:56
--- NOTE | 2020-05-13 07:58 | Discharge Inst-Urology ---
Discharge Inst-Urology Reconcile Patient Problems Problems Reviewed?: Yes Final Diagnosis RT PROXIMAL URETERAL STONE Patient Instructions/Follow Up Plan/Assessment/Instructions Please make appointment to been seen in office Saturday 05/20, kub prior to it. KUB on way home Increase oral fluids for 48 hours and then as needed. Diet and Activity as tolerated. If questions or concerns contact your physician Or seek help at emergency department. YONG BACH MD May 13, 2020 07:58
[2020-05-13] MEDS ORDERED: PHENYLEPHRINE 100 MCG/ML 10 ML (ANESTHESIA) SYR ONE (08:49)
[2020-05-13] MEDS ORDERED: NITR-65 PO (09:39)
[2020-05-13] MEDS ORDERED: TRM50T PO (09:39)
[2020-05-13] MEDS ORDERED: morphine INJ 10 MG/ML 1ML (SYR OR VIAL) IVP ONE (10:00)
[2020-05-13] MEDS: ONDANSETRON 4 MG/2 ML (SDV) Z0FRAN IVP PRN ×2 (10:12→10:45)
--- NOTE | 2020-05-13 10:26 | Anesthesia-General Post-Op ---
General Patient Condition Mental Status/LOC: Same as Preop Cardiovascular: Satisfactory Nausea/Vomiting: Absent Respiratory: Satisfactory Pain: Controlled Complications: Absent Post Op Complications Complications None Follow Up Care/Instructions Patient Instructions None needed. Anesthesia/Patient Condition Patient Condition Patient is doing well, had minimal PONV in PACU but better after zofran, stable vital signs, no apparent adverse anesthesia problems. BALAJI ANDERSON DO May 13, 2020 10:26
[2020-05-13] MEDS ORDERED: PHENAZOPYRIDINE 100 MG (PYRIDIUM) TABLET ONE (11:02)
[2020-05-13] MEDS ORDERED: KETOROLAC 30 MG/ML VIAL ONE (11:02)
[2020-05-13] MEDS ORDERED: PHENAZOPYRIDINE 100 MG (PYRIDIUM) TABLET PO ONE (11:15)
[2020-05-13] MEDS ORDERED: KETOROLAC 30 MG/ML VIAL IVP ONE (11:15)
[2020-05-13] MEDS ORDERED: PHEN-640 PO (11:28)
--- NOTE | 2020-05-13 13:42 | Diagnostic Imaging Report ---
Indication: Right nephrolithiasis KUB 11:43 AM Comparison made with study from 5 hours earlier There has been interval placement of a right double-J ureteral stent. There is a 3 mm calculus projecting over the lower pole of the right kidney. IMPRESSION: Interval placement of a right double-J ureteral stent. The previously seen right ureteral calculus appears to have been pushed up into the right kidney. Dictated by: Dictated on workstation # [id number]
--- NOTE | 2020-05-13 14:13 | OPERATIVE REPORT ---
DATE OF SERVICE: 05/13/2020 PREOPERATIVE DIAGNOSIS: Right proximal ureteral stone. POSTOPERATIVE DIAGNOSIS: Right proximal ureteral stone. OPERATION PERFORMED: Cystoscopy, right ureteroscopy, right ureteral stone manipulation and insertion of stent. SURGEON: Marcelo Bach MD ANESTHESIA: General. COMPLICATIONS: None. DESCRIPTION OF PROCEDURE: Under satisfactory general anesthesia, the patient in lithotomy position, genitalia were prepped and draped in the usual sterile fashion. Cystoscope was introduced under vision and bladder was essentially normal except for sluggish efflux on the right side. Using the foroblique lens, I dilated the right ureteral orifice intramural portion. Intramural portion was pretty tight and could not accommodate well the 6.9 [place]uvian semi-rigid ureteroscope. I did not want to push and cause problems, so I removed the ureteroscope, inserted the cystoscope. I attempted to pass a 6-Peruvian 26 cm double-J stent, was unsuccessful. I passed a Glidewire, bypassed the stone to the kidney, but the stent would not slide over the Glidewire easily to bypass the stone, so I removed the stent and the Glidewire. I reinserted the cystoscope, hoping that Glidewire has kind of dilated the ureter and I was able to pass a 6-Peruvian 28 cm double-J stent or bypass the stone all the way up to the right renal pelvis guided fluoroscopically, removed the Glidewire and the stent was seen draining nicely proximally fluoroscopically and distally endoscopically. Bladder was evacuated and cystoscope was removed. PLAN: ESWL and removal of stent next Wednesday when the machine is here, which was explained to the patient preoperatively and to her postoperatively. Job ID: [id number] DocumentID: [id number] Dictated Date: 05/13/2020 09:41:49 Labor Economics Professor Date: 05/13/2020 14:12:41 Dictated By: MARCELO BACH MD
== END 2020-05-13 12:05 | disposition home or self-care (01) ==
LOC: SDC 05:59
PROVIDERS: ATTEND Urology
DX: N20.1 Calculus of ureter (principal); F32.9 Major depressive disorder, single episode, unspecified; Z98.890 Other specified postprocedural states; Z90.49 Acquired absence of other specified parts of digestive tract; Z85.820 Personal history of malignant melanoma of skin; Z87.448 Personal history of other diseases of urinary system
CPT/HCPCS: 52330; 52332; 74018; 76000; 84703; 87081; C2625

== ENCOUNTER 2020-05-16 07:28 | Outpatient (RCR) | payer OTHER ==
[~2020-05-16 07:28] MED LIST changes: +ACET-2267 PO; +PHEN-640 PO
[2020-05-21] MEDS ORDERED: NITR-65 PO (09:50)
[2020-05-21] MEDS ORDERED: TRM50T PO (09:50)
== END 2020-05-20 14:59 | disposition home or self-care (01) ==
LOC: PREOP 07:28
PROVIDERS: ATTEND Urology
DX: Z01.818 Encounter for other preprocedural examination (principal)

== ENCOUNTER 2020-05-16 12:59 | Emergency (ER) | payer OTHER ==
[~2020-05-16] VITALS: Ht 162.5 cm; Wt 72.7 kg
[2020-05-16] MEDS ORDERED: LACTATED RINGERS 1,000 ML IV ONE (13:30)
[2020-05-16] MEDS ORDERED: fentaNYL INJECTION 100 MCG/2 ML AMP IVP ONE (13:30)
[2020-05-16 13:45] LABS: BILIRUBIN,URINE NEGATIVE (NEGATIVE); CLARITY,URINE CLOUDY; COLOR,URINE YELLOW; GLUCOSE, URINE (UA) NEGATIVE (NEGATIVE); KETONES,URINE NEGATIVE (NEGATIVE); LEUKOCYTE ESTERASE ,URINE 1+ (NEGATIVE); NITRITE,URINE NEGATIVE (NEGATIVE); PROTEIN,URINE 2+ (NEGATIVE)
[2020-05-16 13:49] LABS: BASOPHILS # (AUTO) 0.1 10^3/uL (0.0-0.1); BASOPHILS % (AUTO) 1 % (0-10); EOSINOPHILS # (AUTO) 0.3 10^3/uL (0.0-0.3); EOSINOPHILS % (AUTO) 4 % (0-10); HEMATOCRIT 40 % (35-52); HEMOGLOBIN 13.2 g/dL (11.5-16.0); LYMPHOCYTES # (AUTO) 1.6 10^3/uL (1.0-4.0); LYMPHOCYTES % (AUTO) 20 % (12-44); MEAN CORPUSCULAR HEMOGLOBIN 30 pg (25-34); MEAN CORPUSCULAR HGB CONC 33 g/dL (32-36); MEAN CORPUSCULAR VOLUME 92 fL (80-99); MEAN PLATELET VOLUME 8.2 fL (9.0-12.2); MONOCYTES # (AUTO) 0.8 10^3/uL (0.0-1.0); MONOCYTES % (AUTO) 9 % (0-12); NEUTROPHILS # (AUTO) 5.5 10^3/uL (1.8-7.8); NEUTROPHILS % (AUTO) 66 % (42-75); PLATELET COUNT 461 10^3/uL (130-400); WHITE BLOOD COUNT 8.3 10^3/uL (4.3-11.0)
[2020-05-16 13:53] LABS: RBC,URINE TNTC /HPF
[2020-05-16 13:54] LABS: BACTERIA,URINE MODERATE /HPF
[2020-05-16 13:58] LABS: CHLORIDE 103 MMOL/L (98-107); POTASSIUM 3.5 MMOL/L (3.6-5.0); SODIUM 139 MMOL/L (135-145)
[2020-05-16 13:59] LABS: CALCIUM 8.9 MG/DL (8.5-10.1); GLUCOSE 117 MG/DL (70-105)
[2020-05-16 14:01] LABS: CARBON DIOXIDE 27 MMOL/L (21-32)
[2020-05-16 14:03] LABS: GFR ESTIMATED > 60
[2020-05-16 14:04] LABS: BUN/CREATININE RATIO 9
[2020-05-16] MEDS ORDERED: cefTRIAXone FOR IV USE 1,000 MG in WATER (STERILE) FOR INJECTION 10 ML IV ONE (14:15)
--- NOTE | 2020-05-16 14:33 | Diagnostic Imaging Report ---
INDICATION: Generalized abdominal pain, nephrolithiasis. COMPARISON: 05/13/2020 FINDINGS: Single view of the abdomen demonstrate stable mild to moderate constipation. There is a stable double-J stent with a 3 mm stone adjacent to the tip of the stent in the mid to lower pole of the right kidney. No obvious ureteral or bladder calculi are seen. IMPRESSION: Stable double-J ureteral stent and nonobstructive right renal calculus. Dictated by: Dictated on workstation # [id number]
--- NOTE | 2020-05-16 15:13 | ED GI ---
General Chief Complaint: Abdominal/GI Problems Stated Complaint: SIDE PAINS Nursing Triage Note: AMB TO ROOM REPORTS HAD KIDNEY STONE HAS SUGREY ON WEDNESDAY AND TRIED TO BLAST HER STONE WITHOUT SUCUESS. IS TO HAVE SURGREY AGAIN ON WED.HAVING PAIN THAT PAIN MEDS Sepsis Screen: No Definite Risk Source of Information: Patient Exam Limitations: No Limitations History of Present Illness Date Seen by Provider: May 16, 2020 Time Seen by Provider: 13:29 Initial Comments This 49 year old woman presents to the ER with uncontrolled pain after placement of a ureteral stent for right kidney stone. She has lithotripsy scheduled for next Wednesday. She has been on macrobid, hydrocodone, oxycodone, and flomax. She has not been taking Pyridium. She denies fever. Allergies and Home Medications Allergies Coded Allergies: No Known Drug Allergies (Unverified , 05/13/20) Home Medications Acetaminophen 500 Mg Tablet, 500 MG PO BID, (Reported) Benazepril HCl 20 Mg Tablet, 20 MG PO DAILY, (Reported) Cetirizine HCl 10 Mg Tablet, 10 MG PO DAILY, (Reported) Famotidine 20 Mg Tablet, 20 MG PO DAILY Increase to twice daily morning and evening Prescribed by: MAXNIE VELARDE on 07/29/18 1038 Hydrocodone/Acetaminophen 1 Each Tablet, 1-2 TAB PO Q4H PRN for PAIN-MODERATE (5-7) Prescribed by: PEGGY العراقي on 05/07/202223 Magnesium Amino Acid Chelate Unknown Strength Tablet, Unknown Dose PO DAILY, (Reported) Nitrofurantoin Monohyd/M-Cryst 100 Mg Capsule, 1 TAB PO BID Prescribed by: PEGGY العراقي on 05/07/202222 Nitrofurantoin Monohyd/M-Cryst 100 Mg Capsule, 1 TAB PO BID Prescribed by: YOGESH TRINH on 05/13/20 0939 Ondansetron 4 Mg Tab.rapdis, 4 MG SL Q4H PRN for NAUSEA/VOMITING Prescribed by: PEGGY العراقي on 05/07/202222 Oxycodone HCl/Acetaminophen 1 Each Tablet, 1 TAB PO Q6H PRN for PAIN-MODERATE (5-7) Prescribed by: LISA CHACON on 05/08/20 1916 Phenazopyridine HCl 200 Mg Tablet, 1 TAB PO TID Prescribed by: YOGESH TRINH on 05/13/20 1128 Tamsulosin HCl 0.4 Mg Cap, 0.4 MG PO DAILY Prescribed by: PEGGY العراقي on 05/07/20 2223 Tramadol HCl 50 Mg Tablet, 50-100 MG PO Q4H PRN for PAIN-MODERATE (5-7) Prescribed by: YOGESH TRINH on 05/13/20 0939 Venlafaxine HCl 150 Mg Cap.er.24h, 150 MG PO DAILY, (Reported) Patient Home Medication List Home Medication List Reviewed: Yes Review of Systems Review of Systems Constitutional: no symptoms reported EENTM: No Symptoms Reported Respiratory: No Symptoms Reported Cardiovascular: No Symptoms Reported Gastrointestinal: See HPI Genitourinary: See HPI Musculoskeletal: no symptoms reported, joint pain Skin: no symptoms reported Psychiatric/Neurological: No Symptoms Reported Endocrine: No Symptoms Reported Past Zxfbimj-Hzxmsj-Enufnd Hx Past Med/Social Hx: Reviewed Nursing Past Med/Soc Hx Patient Social History Alcohol Use: Denies Use Smoking Status: Current Everyday Smoker Type Used: Cigarettes Former Smoker, Quit: Jun 24, 1999 2nd Hand Smoke Exposure: Yes Recent Infectious Disease Expo: No Recent Hopitalizations: No Immunizations Up To Date Tetanus Booster (TDap): Less than 5yrs PED Vaccines UTD: Yes Date of Influenza Vaccine: Jan 07, 2020 Seasonal Allergies Seasonal Allergies: Yes Past Medical History Surgeries: Yes (melanoma removed from stomach, kidney stone;EGD, WISDOM TEETH, carap tunnel) Gallbladder, Orthopedic, Renal Respiratory: No Currently Using CPAP: No Currently Using BIPAP: No Cardiac: Yes Hypertension Neurological: Yes Headaches /Migraines Reproductive Disorders: No Female Reproductive Disorders: Denies Sexually Transmitted Disease: No Genitourinary: Yes Kidney Stones Gastrointestinal: Yes ( INDUCED PANCREATITIS ) Gastroesophageal Reflux, Pancreatitis, Gall Bladder Disease Musculoskeletal: Yes Chronic Back Pain Endocrine: No HEENT: No Loss of Vision: Denies Hearing Impairment: Denies Cancer: Yes Melanoma Did You Recieve Any Treatments: Yes What Type of Treatment Did You: Surgical Intervention Psychosocial: Yes Depression Integumentary: No Blood Disorders: No Adverse Reaction/Blood Tranf: No (N/A) Physical Exam Vital Signs Vital Signs - First Documented 05/16/20 13:06 Temp 35.9 Pulse 102 Resp 18 B/P (MAP) 137/92 (107) Pulse Ox 98 O2 Delivery Room Air Capillary Refill : Less Than 3 Seconds Height/Weight/BMI Height: 5'4.00" Weight: 190lbs. 0.0oz. 86.912006mt; 27.00 BMI Method:Stated General Appearance: WD/WN, mild distress HEENT: normal ENT inspection Respiratory: normal breath sounds, no respiratory distress, no accessory muscle use Cardiovascular: regular rate, rhythm, no edema, no murmur Gastrointestinal: normal bowel sounds, soft, tenderness (RLQ) Extremities: normal inspection, no pedal edema Neurologic/Psychiatric: car inspector II-XII nml as tested, no motor/sensory deficits, alert, normal mood/affect, oriented x 3 Skin: normal color, warm/dry Progress/Results/Core Measures Results/Orders Lab Results Laboratory Tests Test 05/16/20 13:31 05/16/20 13:45 Range/Units Urine Color YELLOW Urine Clarity CLOUDY Urine pH 6.0 5-9 Urine Specific [place] >=1.030 1.016-1.022 Urine Protein 2+ H NEGATIVE Urine Glucose (UA) NEGATIVE NEGATIVE Urine Ketones NEGATIVE NEGATIVE Urine Nitrite NEGATIVE NEGATIVE Urine Bilirubin NEGATIVE NEGATIVE Urine Urobilinogen 0.2 < = 1.0 MG/DL Urine Leukocyte Esterase 1+ H NEGATIVE Urine RBC (Auto) 3+ H NEGATIVE Urine RBC TNTC H /HPF Urine WBC 10-25 H /HPF Urine Squamous Epithelial Cells 5-10 /HPF Urine Crystals NONE /LPF Urine Bacteria MODERATE H /HPF Urine Casts NONE /LPF Urine Mucus NEGATIVE /LPF Urine Culture Indicated YES White Blood Count 8.3 4.3-11.0 10^3/uL Red Blood Count 4.36 3.80-5.11 10^6/uL Hemoglobin 13.2 11.5-16.0 g/dL Hematocrit 40 35-52 % Mean Corpuscular Volume 92 80-99 fL Mean Corpuscular Hemoglobin 30 25-34 pg Mean Corpuscular Hemoglobin Concent 33 32-36 g/dL Red Cell Distribution Width 11.9 10.0-14.5 % Platelet Count 461 H 130-400 10^3/uL Mean Platelet Volume 8.2 L 9.0-12.2 fL Immature Granulocyte % (Auto) 0 % Neutrophils (%) (Auto) 66 42-75 % Lymphocytes (%) (Auto) 20 12-44 % Monocytes (%) (Auto) 9 0-12 % Eosinophils (%) (Auto) 4 0-10 % Basophils (%) (Auto) 1 0-10 % Neutrophils # (Auto) 5.5 1.8-7.8 10^3/uL Lymphocytes # (Auto) 1.6 1.0-4.0 10^3/uL Monocytes # (Auto) 0.8 0.0-1.0 10^3/uL Eosinophils # (Auto) 0.3 0.0-0.3 10^3/uL Basophils # (Auto) 0.1 0.0-0.1 10^3/uL Immature Granulocyte # (Auto) 0.0 0.0-0.1 10^3/uL Sodium Level 139 135-145 MMOL/L Potassium Level 3.5 L 3.6-5.0 MMOL/L Chloride Level 103 98-107 MMOL/L Carbon Dioxide Level 27 21-32 MMOL/L Anion Gap 9 5-14 MMOL/L Blood Urea Nitrogen 7 7-18 MG/DL Creatinine 0.80 0.60-1.30 MG/DL Estimat Glomerular Filtration Rate > 60 BUN/Creatinine Ratio 9 Glucose Level 117 H 70-105 MG/DL Calcium Level 8.9 8.5-10.1 MG/DL C-Reactive Protein High Sensitivity 0.94 H 0.00-0.50 MG/DL My Orders Orders - PEGGY CASTRO MD Basic Metabolic Panel (05/16/20 13:29) Cbc With Automated Diff (05/16/20 13:29) Hs C Reactive Protein (05/16/20 13:29) Ua Culture If Indicated (05/16/20 13:29) Ed Iv/Invasive Line Start (05/16/20 13:29) Fentanyl Injection (Sublimaze Injection (05/16/20 13:30) Ed Iv/Invasive Line Start (05/16/20 13:30) Lactated Ringers (Lr 1000 Ml Iv Solution (05/16/20 13:30) Urine Culture (05/16/20 13:31) Ceftriaxone For Iv Use (Rocephin For I (05/16/20 14:15) Abdomen/Kub 1view (05/16/20 14:07) Ketorolac Injection (Toradol Injection) (05/16/20 15:15) Medications Given in ED Vital Signs/I&O 05/16/20 05/16/20 13:06 15:32 Temp 35.9 Pulse 102 95 Resp 18 18 B/P (MAP) 137/92 (107) 126/76 Pulse Ox 98 98 O2 Delivery Room Air Blood Pressure Mean: 107 Progress Progress Note : Progress Note Pain was treated with Fentanyl and Toradol. Rocephin given for pyuria. Hydrated with IVF. Discussed appropriate dosing of pain medications. Encouraged to take Pyridium. Discussed with Dr. Bach. Departure Impression Primary Impression: Kidney stone Additional Impressions: Abdominal pain Qualified Codes: R10.31 - Right lower quadrant pain Urinary tract infection Qualified Codes: N39.0 - Urinary tract infection, site not specified Disposition: HOME, SELF-CARE Condition: Improved Departure-Patient Inst. Decision time for Depature: 15:00 Referrals: MAXINE VELARDE MD (PCP/Family) Primary Care Physician Patient Instructions: Kidney Stone, Adult ED Add. Discharge Instructions: Start taking Pyridium (phenazopyridine) as prescribed to help reduce pain. Take no more than 2 tablets of your opioid medications (hydrocodone, Percocet, Lortab, oxycodone, etc.) every 4 hours. You may also take Ultram (tramadol) as prescribed. If absolutely necessary, you may add ibuprofen for breakthrough pain. You may wish to take a stool softener such as Colace while taking opioid medications to prevent constipation. Continue taking all other medications as prescribed by Dr. Bach. Call with questions or concerns. Return to the emergency room if symptoms worsen despite following these instructions. All discharge instructions reviewed with patient and/or family. Voiced understanding. Copy Copies To 1: YONG BACH MD, JOSHUA T MD May 16, 2020 15:13
[2020-05-16] MEDS ORDERED: KETOROLAC 30 MG/ML VIAL IVP ONE (15:15)
[2020-05-16 15:32] VITALS: BP 126/76
== END 2020-05-16 15:36 | disposition home or self-care (01) ==
LOC: EDUNIT# 12:59 → ER 13:01
DX: N20.0 Calculus of kidney (principal); N39.0 Urinary tract infection, site not specified; F32.9 Major depressive disorder, single episode, unspecified; I10 Essential (primary) hypertension; K21.9 Gastro-esophageal reflux disease without esophagitis; G89.29 Other chronic pain; M54.9 Dorsalgia, unspecified; F17.210 Nicotine dependence, cigarettes, uncomplicated; Z85.820 Personal history of malignant melanoma of skin; Z79.891 Long term (current) use of opiate analgesic
CPT/HCPCS: 36415; 74018; 80048; 81000; 85025; 86141; 87088

== ENCOUNTER 2020-05-21 06:16 | Day surgery (SDC) | payer OTHER ==
[~2020-05-21] VITALS: Ht 162 cm; Wt 72.7 kg
[2020-05-21] VITALS (8 sets, daily range): BP systolic 91–118; BP diastolic 62–83
[~2020-05-21 06:16] MED LIST changes: +LACTATED RINGERS 1,000 ML IV PRN
[2020-05-21] MEDS ORDERED: cefTRIAXone FOR IV USE 1,000 MG in WATER (STERILE) FOR INJECTION 10 ML IV ONE (06:45)
[2020-05-21] MEDS ORDERED: CATHETER FLUSH 10 ML SYR IV PRN (07:00)
[2020-05-21] MEDS ORDERED: MIDAZOLAM 2 MG/2 ML (VERSED) VIAL ONE (07:03)
[2020-05-21] MEDS ORDERED: proPOfol 200 MG/20 ML (DIPRIVAN) VIAL IV ONE ×2 (07:03→09:12)
[2020-05-21] MEDS ORDERED: ONDANSETRON 4 MG/2 ML (SDV) Z0FRAN ONE (07:03)
[2020-05-21] MEDS ORDERED: SEVOFLURANE (ULTANE) 15 ML INHAL SOLN ONE ×3 (07:03→09:42)
[2020-05-21] MEDS ORDERED: KETOROLAC 30 MG/ML VIAL ONE (07:03)
[2020-05-21] MEDS ORDERED: LIDOCAINE PF 2% 5 ML (XYLOCAINE) VIAL ONE (07:03)
[2020-05-21] MEDS ORDERED: FUROSEMIDE 40 MG/4 ML INJ (LASIX) ONE (07:03)
[2020-05-21] MEDS ORDERED: fentaNYL INJECTION 100 MCG/2 ML AMP ONE (07:03)
--- NOTE | 2020-05-21 07:09 | Progress Note-Pre Operative ---
Pre-Operative Progress Note H&P Reviewed The H&P was reviewed, patient examined and no changes noted. Date Seen by Provider: May 21, 2020 Time Seen by Provider: 07:08 Date H&P Reviewed: May 21, 2020 Time H&P Reviewed: 07:08 Pre-Operative Diagnosis: RT PROXIMAL URETERAL STONE YONG BACH MD May 21, 2020 07:09
--- NOTE | 2020-05-21 07:13 | Progress Note-Post Operative ---
Post-Operative Progess Note Surgeon (s)/Nail Technician Teacher (s) Surgeon YONG BACH MD Nail Technician Teacher: NONE Pre-Operative Diagnosis RT PROXIMAL URETERAL STONE Post-Operative Diagnosis SAME Procedure & Operative Findings Date of Procedure 05/21/20 Procedure Performed/Findings RT ESWL, CYSTO AND REMOVAL OF RT STENT Anesthesia Type GENERAL Estimated Blood Loss Estimated blood loss (mL): NONE Specimens/Packing Specimens Removed NONE TO PATH Packing: NONE YONG BACH MD May 21, 2020 07:13
--- NOTE | 2020-05-21 07:15 | Discharge Inst-Urology ---
Discharge Inst-Urology Reconcile Patient Problems Problems Reviewed?: Yes Final Diagnosis RT PROXIMAL URETERAL STONE Patient Instructions/Follow Up Plan/Assessment/Instructions Please make appointment to been seen in office in 2 weeks, KUB prior to it KUB on way home Post ESWL instructions Increase oral fluids for 48 hours and then as needed. Diet and Activity as tolerated. If questions or concerns contact your physician Or seek help at emergency department. YONG BACH MD May 21, 2020 07:15
--- NOTE | 2020-05-21 07:17 | Diagnostic Imaging Report ---
INDICATION: Nephrolithiasis. TECHNIQUE: Single supine view of the abdomen 6:42 AM CORRELATION STUDY: 05/16/2020 FINDINGS: Right double-J ureteral stent unchanged in configuration and appearance. Approximately 4 mm calcification projects over the proximal aspect stent likely in the renal pelvis and/or proximal ureter. Question punctate calcification over the low midline pelvis could be reflective of stool contents versus a potential bladder stone. There is moderate amount of stool within the colon obscuring detail. IMPRESSION: 1. Stable configuration and appearance of right double-J ureteral stent. Suspect for interval migration of calcification now projecting over the proximal portion of the stent could be reflective of the renal pelvis or proximal ureter. 2. Constipation Dictated by: Dictated on workstation # [id number]
[2020-05-21] MEDS ORDERED: NITR-65 PO (09:50)
[2020-05-21] MEDS ORDERED: TRM50T PO (09:50)
--- NOTE | 2020-05-21 11:28 | Diagnostic Imaging Report ---
Indication: Post lithotripsy COMPARISON: 05/21/2020 at 0642 TECHNIQUE: Single radiograph of abdomen dated 05/21/2020 at 1100 FINDINGS: Previously noted right ureteral stent is no longer visualized. A new 5 mm calcification is noted within the right lower pelvis near the expected location of the distal right ureter/right ureterovesicular junction. The previously noted calcification overlying the expected location of the proximal right ureter is no longer visualized. No additional suspicious calcification overlying the renal shadows. Surgical clips are seen overlying the right upper quadrant abdomen. Moderate amount of stool within the colon without dilated loops of small bowel. No free air. No acute osseous abnormality. IMPRESSION: New 5 mm linear calcification within the right lower pelvis. Although this could simply relate to an enteric contents, this could relate to a distal ureterolith which has migrated since the prior examination. Recommend clinical correlation and radiographic follow-up. Interval removal of previously noted right ureteral stent. Moderate amount of stool throughout the colon. Dictated by: Dictated on workstation # [id number]
--- NOTE | 2020-05-21 13:46 | OPERATIVE REPORT ---
DATE OF SERVICE: 05/21/2020 PREOPERATIVE DIAGNOSIS: Right proximal ureteral stone. POSTOPERATIVE DIAGNOSIS: Right proximal ureteral stone. OPERATION PERFORMED: Right ESWL, cystoscopy and removal of right ureteral stent. SURGEON: Marcelo Bach MD ANESTHESIA: General. COMPLICATIONS: None. DESCRIPTION OF PROCEDURE: Under satisfactory general anesthesia, the patient in supine position on the ESWL table, the right proximal ureteral stone was localized. Shocks were delivered at kV of 6 for a total of 2500 shocks completely fragmented the stone. During the procedure, we put the patient in lithotomy position, genitalia were prepped and draped in the usual sterile fashion. Flexible cystoscope was introduced under vision. The distal end of the right ureteral stent was visualized, it was grasped with grasping forceps and removed complete. The patient received 30 mg of Toradol and 40 mg of Lasix at the end of the procedure. She tolerated the procedure and anesthesia well and was sent to recovery room in stable condition. Job ID: [id number] DocumentID: [id number] Dictated Date: 05/21/2020 09:30:01 Film Loader Date: 05/21/2020 13:45:37 Dictated By: MARCELO BACH MD
--- NOTE | 2020-05-21 20:50 | Anesthesia-General Post-Op ---
General Patient Condition Mental Status/LOC: Same as Preop Cardiovascular: Satisfactory Nausea/Vomiting: Absent Respiratory: Satisfactory Pain: Controlled Complications: Absent Post Op Complications Complications None Follow Up Care/Instructions Patient Instructions None needed. Anesthesia/Patient Condition Patient Condition Patient is doing well, no complaints, stable vital signs, no apparent adverse anesthesia problems. No complications reported per nursing. NORBERT SIMON CRNA May 21, 2020 20:50
== END 2020-05-21 11:06 | disposition home or self-care (01) ==
LOC: SDC 06:16
PROVIDERS: ATTEND Urology
DX: N20.1 Calculus of ureter (principal); K21.9 Gastro-esophageal reflux disease without esophagitis; E66.9 Obesity, unspecified; Z68.27 Body mass index [BMI] 27.0-27.9, adult; Z79.899 Other long term (current) drug therapy; Z98.890 Other specified postprocedural states; Z90.49 Acquired absence of other specified parts of digestive tract; Z85.820 Personal history of malignant melanoma of skin; Z20.822 Contact with and (suspected) exposure to COVID-19
CPT/HCPCS: 50590; 52310; 74018; 84703; 87081; U0002; 87635

== ENCOUNTER → 2020-06-12 | Outpatient (CLI) | payer OTHER ==
[~2020-06-12] MED LIST changes: -LACTATED RINGERS 1,000 ML IV PRN
--- NOTE | 2020-06-12 17:05 | Diagnostic Imaging Report ---
INDICATION: Nephrolithiasis KUB 4:42 PM Gallbladder appears to be surgically absent. Bowel gas pattern is normal. There are no pathologic masses or calcifications seen. The previously seen opacity in the right side of the pelvis near the ureterovesical junction is no longer seen. IMPRESSION: Negative abdomen Dictated by: Dictated on workstation # [id number]
== END ==
LOC: RAD 16:35
PROVIDERS: ATTEND Urology
DX: N20.0 Calculus of kidney (principal)
CPT/HCPCS: 74018

== ENCOUNTER → 2021-06-25 | Outpatient (CLI) | payer OTHER ==
[~2021-06-25] MED LIST changes: +BENA-3 PO; -BENA20TA7 PO; -BENA40TA5; +BENA40TA84; -SULF1TAB35 PO; +SULF1TAB38 PO
--- NOTE | 2021-06-26 08:53 | Diagnostic Imaging Report ---
Indication: Routine screening. Comparison is made with prior mammogram from 10/18/2019 and 05/02/2018. 2-D and 3-D bilateral screening mammography was performed with CAD. CAD is utilized. The current study was also evaluated with a Computer Aided Detection (CAD) system. Scattered fibroglandular densities are identified bilaterally. The parenchymal pattern is stable. No mass or malignant-appearing microcalcifications are seen. Axillae are unremarkable. IMPRESSION: BI-RADS Category 1 No mammographic features suspicious for malignancy are identified. ACR BI-RADS Category 1: Negative. Result letter will be mailed to the patient. Note: At least 10% of breast cancer is not imaged by mammography. Dictated by: Dictated on workstation # [id number]
== END ==
LOC: RAD 15:30
PROVIDERS: ATTEND Nurse Practitioner Family
DX: Z12.31 Encounter for screening mammogram for malignant neoplasm of breast (principal)
CPT/HCPCS: 77063; 77067

== ENCOUNTER → 2022-08-24 | Outpatient (CLI) | payer OTHER ==
[~2022-08-24] MED LIST changes: -VENL150C PO; +VENL150C3 PO
--- NOTE | 2022-08-24 11:32 | Diagnostic Imaging Report ---
INDICATION: Routine screening. Comparison is made with prior mammogram from 06/25/2021 and 10/18/2019. 2-D and 3-D bilateral screening mammography was performed with CAD. Scattered fibroglandular densities are identified bilaterally. No mass or malignant-appearing microcalcifications are identified. Axillae are unremarkable. IMPRESSION: No mammographic features suspicious for malignancy are identified. ACR BI-RADS Category 1: Negative. Result letter will be mailed to the patient. Note: At least 10% of breast cancer is not imaged by mammography. BI-RADS Category 1 Dictated by: Dictated on workstation # [id number]
== END ==
LOC: RAD 09:19
PROVIDERS: ATTEND Nurse Practitioner Family
DX: Z12.31 Encounter for screening mammogram for malignant neoplasm of breast (principal)
CPT/HCPCS: 77063; 77067